=== PATIENT | female | born 1960 | race Caucasian/White ===

== ENCOUNTER 2017-01-06 18:01 | Emergency (ER) | payer MEDICAID ==
--- NOTE | 2017-01-06 18:07 | EDPHY ---
H & P Time Seen by Provider: 01/06/17 18:07 HPI/ROS: CHIEF COMPLAINT: Left leg laceration HISTORY OF PRESENT ILLNESS: Patient is wheelchair-bound with complex regional pain syndrome and cut her leg on her wheelchair earlier this evening. Laceration is on the left anterior phipps. No other injuries. 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 She has chronically anticoagulated on Xarelto but does not have bleeding actively now. REVIEW OF SYSTEMS: Eye: no change in vision ENT: no sore throat Cardiac: No syncope. Pulmonary: Chronic shortness of breath unchanged. Abdomen: No abdominal pain Musculoskeletal: Left leg pain which is worse today after the injury, chronic. Skin: Left leg laceration. Multiple skin tears on the right leg which are chronic and not worse today and not examined. Neuro: Currently wheelchair-bound. Chronically decreased strength in lower extremities. Constitutional: no fever : no urinary symptoms A comprehensive 10 point review of systems is otherwise negative aside from elements mentioned in the history of present illness. PAST MEDICAL HISTORY: Includes complex regional pain syndrome, chronic respiratory failure with hypoxia, sleep apnea, hypertension, pulmonary embolism , depression, extremity contractures, glaucoma, borderline personality disorder , right humerus fracture, opioid dependence. This is from the [facility] clinical information the comes with the patient. Social history: Lives at [facility] General Appearance: Alert and conversant, cooperative. Eyes: No scleral icterus. ENT, Mouth: Normal mucous membranes. Respiratory: Normal respiratory effort, breath sounds equal, lungs are clear to auscultation. Cardiovascular: Regular rate and rhythm. Gastrointestinal: Abdomen is soft and non tender. Neurological: Alert and oriented x3. Follows commands. Skin: Laceration 6 cm left anterior phipps. Right leg has dressing over skin tears, not examined. Musculoskeletal: Contractures both lower extremities. Psychiatric: Patient is very anxious and tearful. Emergency Department course/MDM: Patient was unable to tolerate local anesthesia so she was given 100 mg intranasal ketamine and then was able to tolerate 10 mL is of 0.5% bupivacaine injected locally into the wound. Constitutional: Initial Vital Signs Temperature (C) 36.7 C 01/06/17 18:35 Heart Rate 87 01/06/17 18:35 Respiratory Rate 20 01/06/17 18:35 Blood Pressure 200/99 H 01/06/17 18:35 O2 Sat (%) 100 01/06/17 18:35 O2 Delivery Mode Room Air Medical Decision Making - Diagnostics Imaging Results: Imaging Impressions Tibia/Fibula X-Ray 01/06/17 18:37 Impression: 1. No left tibial or fibular fracture identified. 2. Incomplete characterization of the ankle, which appears degenerative and disorganized. Imaging: I viewed and interpreted images myself Procedures: Procedure: Laceration repair. Verbal consent was obtained from the patient. The 6 cm laceration on the left phipps was anesthetized using 0.5% bupivacaine without epinephrine. The wound was irrigated with standard emergency department protocol, draped and explored. There were no deep structures involved. No tendon injury was identified. No foreign body found. The wound was repaired with 3 0 Vicryl and kyleigh. The wound repair was complex. Excellent hemostasis was obtained. Wound care instructions were discussed and the patient was warned regarding scarring. The procedure was performed by myself. - Data Points Medications Given: Discontinued Medications Ketamine HCl (Ketamine) 100 mg IVP EDNOW ONE Stop: 01/06/17 18:31 Last Admin: 01/06/17 18:34 Dose: 100 mg Departure - Departure Disposition: Home, Routine, Self-Care Clinical Impression: Leg laceration Condition: Good Instructions: Laceration (ED) Additional Instructions: Wound Care Follow-Up: Removal of sutures in 10-14 days. Suture removal is complimentary in uncomplicated cases. Infection or abnormal findings would require reevaluation by the MD. In that case, you may be billed. Referrals: Patient,NotPresent [Unknown] - As per Instructions EMIR GERMAIN [Primary Care Provider] - As per Instructions
[2017-01-06] MEDS ORDERED: KETAMINE 100 MG/10 ML SYR ONE (18:19)
[2017-01-06] MEDS ORDERED: KETAMINE 100 MG/10 ML SYR IVP ONE (18:30)
[2017-01-06 18:38] VITALS: TEMP 98.1; O2SAT 100
[2017-01-06 19:32] VITALS: BP 189/99; PULSE 89; RESP 18
== END 2017-01-06 19:49 | disposition home or self-care (01) ==
PROC: 0HQLXZZ Repair Left Lower Leg Skin, External Approach (ICD-10-PCS; principal; 2017-01-06)
DX: S81.812A Laceration without foreign body, left lower leg, initial encounter (principal); I10 Essential (primary) hypertension; W26.8XXA Contact with other sharp object(s), not elsewhere classified, initial encounter
CPT/HCPCS: 96374

== ENCOUNTER 2017-09-16 13:14 | Emergency (ER) | payer MEDICAID ==
[2017-09-16] MEDS ORDERED: ONDANSETRON DISINTEGRATING 4 MG TAB PO ONE (13:47)
--- NOTE | 2017-09-16 13:47 | EDPHY ---
H & P Stated Complaint: Bilateral Lower Rib Pain Time Seen by Provider: 09/16/17 13:47 HPI/ROS: HPI: This is a 56-year-old female who presents with Chief Complaint: Bilateral Lower Rib Pain Location: Bilateral lower rib Quality: Pain Duration: 1 hr prior to arrival Signs and Symptoms: No bleeding, no radiation, no numbness, no weakness, no tingling, no incontinence, no decreased range of motion, no swelling, no pain Timing: Severity: Context: Patient lives at an assisted living facility, supplement oxygen dependent due to chronic respiratory failure presents via EMS with complaints of bilateral lower rib pain. Patient reports that she was using her electric scooter to take her dog out to have a bowel movement. She leaned over to filler picker the stool and the seatbelt from her wheelchair dog into her lower ribs on both sides. She reports that she was stopped an of flexion position for few minutes and unable to sit up on her own. She had a call for help. She denies any shortness of breath above her baseline. She has tried no [id number] medication. She does report some upper respiratory symptoms for the last 3 days. Denies any fever/productive cough/neck stiffness. She did receive her influenza vaccine this year. Modifying Factors: None Comment: ROS: see HPI Constitutional: No fever, no chills, no weight loss Eyes: No blurred vision Respiratory: No shortness of breath, no cough Cardiovascular: No chest pain Gastrointestinal: No nausea, no vomiting no diarrhea Genitourinary: No dysuria Extremities: No myalgias Neurologic: No weakness, no numbness Skin: No rashes Hematologic: No bruising, no bleeding MEDICAL/SURGICAL/SOCIAL HISTORY: Medical/Surgical history: Complex Regional Pain Syndrome, Chronic Respiratory Failure, SAMIR, HTN, Obesity, PE, GERD, Depressive DO, Osteoarthritis, Contracture L ft, Glaucoma, Urinary Incontinence, Borderline Personality DO, Fx humerus, opioid dependence, dysphagia Social history: Lives in assisted living. Family history noncontributory CONSTITUTIONAL: Morbidly obese, nontoxic-appearing, polite and cooperative adult white female, awake and alert, no obvious distress HEENT: Atraumatic and normocephalic, PERRL, EOMI. no globe entrapment, no raccoon eyes. no [place] signs.Tympanic membranes clear. No tympanic membrane rupture. Nares patent; no septal hematoma. Oropharynx clear, no exudate and moist pink mucosa. No malocclusion. no dental trauma. Airway patent. No lymphadenopathy. NECK: supple, no midline tenderness, flexion 45 degrees, extension 45 degrees, right and left lateral flexion 45 degrees. No meningismus. Cardiovascular: Normal S1/S2, regular rate, regular rhythm, without murmur rub or gallop. PULMONARY/CHEST: Symmetrical and mild reproducible tenderness on bilateral lower ribs; no ecchymosis; no crepitus. Clear to auscultation bilaterally. Good air movement. No accessory muscle usage. ABDOMEN: Soft, nondistended, nontender, no ecchymosis, no rebound, no guarding , no peritoneal signs, no masses or organomegaly. No CVAT. PELVIC: no pain with rocking; bilateral hips flexion 125 degrees, extension 30 degrees, with no pain internal rotation and no pain external rotation. BACK: No midline tenderness, no paraspinous spasm, deep tendon reflexes 2/2, no pain with straight leg raise EXTREMITIES: 2/2 pulses, no deformities, no clubbing, no cyanosis or edema. NEUROLOGICAL: no focal neuro deficits. GCS 15. SKIN: Warm and dry, mild erythema consistent with candidiasis noted under by both breasts; no skin breakdown. no erythema. no rash. Good capillary refill. Source: Patient Exam Limitations: No limitations - Personal History Current Tetanus/Diphtheria Vaccine: Yes Current Tetanus Diphtheria and Acellular Pertussis (TDAP): Yes - Medical/Surgical History Hx Asthma: No Hx Chronic Respiratory Disease: No Hx Diabetes: No Hx Cardiac Disease: No Hx Renal Disease: No Hx Cirrhosis: No Hx Alcoholism: No Hx HIV/AIDS: No Hx Splenectomy or Spleen Trauma: No Other PMH: Complex Regional Pain Syndrome, Chronic Respiratory Failure, SAMIR, HTN , Obesity, PE, GERD, Depressive DO, Osteoarthritis, Contracture L ft, Glaucoma, Urinary Incontinence, Borderline Personality DO, Fx humerus, opioid dependence, dysphagia - Social History Smoking Status: Former smoker Constitutional: Initial Vital Signs Temperature (C) 36.6 C 09/16/17 13:34 Heart Rate 80 09/16/17 13:34 Respiratory Rate 18 09/16/17 13:34 Blood Pressure 115/78 09/16/17 13:34 O2 Sat (%) 99 09/16/17 13:34 O2 Delivery Mode Room Air Allergies/Adverse Reactions: ceftriaxone Allergy (Verified 09/16/17 13:57) enoxaparin Allergy (Verified 09/16/17 13:57) hydrocodone Allergy (Verified 09/16/17 13:57) latex Allergy (Verified 09/16/17 13:57) morphine Allergy (Verified 09/16/17 13:57) nalbuphine Allergy (Verified 09/16/17 13:57) nifedipine Allergy (Verified 09/16/17 13:57) oxycodone Allergy (Verified 09/16/17 13:57) pepper Allergy (Verified 09/16/17 13:57) peppermint Allergy (Verified 09/16/17 13:57) pineapple Allergy (Verified 09/16/17 13:57) vancomycin Allergy (Verified 09/16/17 13:57) Home Medications: Medication Instructions Recorded ACETAMINOPHEN 09/16/17 Advair 100/50 (*) 09/16/17 BIOTIN 09/16/17 Benzocaine 09/16/17 Bisacodyl 09/16/17 CHOLECALCIFEROL 09/16/17 Carboxymethylcellulose 0.5% 09/16/17 Cyclobenzaprine 09/16/17 Depakote 09/16/17 Ditropan 09/16/17 Docosanol [Abreva (*)] 09/16/17 Ferrous Sulfate 09/16/17 Gabapentin 09/16/17 Hydrocortisone 09/16/17 Hydroxyzine HCl 09/16/17 Hypromellose 09/16/17 IMODIUM A-D 09/16/17 Ipratropium/Albuterol 09/16/17 Ketoconazole 09/16/17 Latanoprost 09/16/17 Loteprednol Etabonate 09/16/17 Magnesium 09/16/17 Methadone HCl 09/16/17 Metoprolol Tartrate 09/16/17 Nystatin Powder 09/16/17 Olopatadine 0.1% 09/16/17 Paxil 09/16/17 Polyethylene Glycol 3350 09/16/17 Polyvinyl Alcohol 09/16/17 Ranitidine HCl 09/16/17 Rivaroxaban 09/16/17 SUMAtriptan 09/16/17 Sennosides 09/16/17 Tums 500MG (*) 09/16/17 ZYRTEC 09/16/17 Zofran 09/16/17 guaiFENesin 09/16/17 Medical Decision Making - Diagnostics Imaging Results: Imaging Impressions Ribs w/Chest X-Ray 09/16/17 14:00 Impression: 1. Multiple fractures associated with lateral left fourth through 10th ribs with probable callus formation. Clinical correlation recommended. If indicated, consider CT imaging at some point to evaluate for healing of the fractures into confirm chronic remote etiology. 2. Healed fractures lateral right fourth through sixth ribs. 3. Moderate to large hiatal hernia. 4. Moderate elevation right hemidiaphragm with adjacent compressive atelectatic change. ED Course/Re-evaluation: Chest x-ray, rib x-ray, oral medication, influenza test ordered Vital signs reviewed upon arrival and no hypoxia/wheezing/shortness of breath Given p. O. Flexeril 10 mg with adequate relief X-ray reviewed and shows multiple bilateral fractures with callus formation; with mechanism of injury doubt new rib fractures. Reassessed patient who reports that pain has substantially improved she has a history of old fractures in the past. Will discharge home under the premise of rib contusion and if symptoms persist greater than 7-10 days, return to the ER for reimaging. Patient reports that she has a Flexeril prescription already at home. No signs of neurovascular compromise/tenting of skin/compartment syndrome/ extremities and joints examined above and below area of concern and are neurovascularly intact. Influenza negative. Chest x-ray shows no signs of pneumonia, effusion. + hiatal hernia This patient was seen under the supervision of my secondary supervising physician. I evaluated care for this patient independently. Differential Diagnosis: Differential diagnosis includes but is not limited to rib contusion, rib fracture, intra-abdominal abnormality, influenza, viral syndrome, pneumonia. - Data Points Laboratory Results: 09/16/17 14:43 Nasal Influenza A PCR NEGATIVE FOR FLU A (NEGATIVE) Nasal Influenza B PCR NEGATIVE FOR FLU B (NEGATIVE) Medications Given: Discontinued Medications Cyclobenzaprine HCl (Flexeril) 10 mg PO EDNOW ONE Stop: 09/16/17 14:01 Last Admin: 09/16/17 14:43 Dose: 10 mg Ondansetron HCl (Zofran Odt) 4 mg PO EDNOW ONE Stop: 09/16/17 13:48 Last Admin: 09/16/17 13:50 Dose: 4 mg Departure - Departure Disposition: Home, Routine, Self-Care Clinical Impression: Hx of fracture of rib Rib contusion Qualifiers: Encounter type: initial encounter Laterality: unspecified laterality Qualified Code(s): S20.219A - Contusion of unspecified front wall of thorax, initial encounter Condition: Good Instructions: Rib Fracture (ED), Rib Contusion (ED) Additional Instructions: Take Tylenol 650 mg every 4 hours and/or Ibuprofen 600 mg every 8 hours with food as needed for pain. Use Flexeril every 8 hours as needed for muscle spasm. Apply ice for 30 minutes at a time; 2-3 times per day for the next 1-2 days. The x-rays obtained in the emergency department today demonstrate no evidence of an obvious fracture. Sometimes fractures are not obvious on the initial set of x-rays performed in the ED. For this reason, you should have repeat x-rays performed in 7-10 days if you are having any pain exclude the possibility of an occult fracture. Return to the ER immediately if you experience new or worsening pain, discoloration, numbness, tingling, or any other symptoms that concern you. Referrals: PCP Not In,Dictionary [Medical Doctor] - As per Instructions
[2017-09-16] MEDS ORDERED: CYCLOBENZAPRINE 10 MG TAB PO ONE (14:00)
[2017-09-16 17:26] VITALS: BP 103/86; PULSE 79; RESP 18; TEMP 97.9; O2SAT 99
== END 2017-09-16 17:31 | disposition home or self-care (01) ==
LOC: EDBD → EDUNIT#
DX: S20.219A Contusion of unspecified front wall of thorax, initial encounter (principal); I10 Essential (primary) hypertension; Z87.81 Personal history of (healed) traumatic fracture; Z87.891 Personal history of nicotine dependence; Z91.040 Latex allergy status; W05.0XXA Fall from non-moving wheelchair, initial encounter

== ENCOUNTER 2017-09-26 09:48 | Inpatient (IN) | payer MEDICAID ==
--- NOTE | 2017-09-26 10:04 | CPEKG ---
Heart Rate: 144 RR Interval: 417 P-R Interval: 132 QRSD Interval: 80 QT Interval: 276 QTC Interval: 427 P [place]: 35 QRS [place]: -26 T Wave [place]: 46 EKG Severity - OTHERWISE NORMAL ECG - EKG Impression: SINUS TACHYCARDIA EKG Impression: BORDERLINE LEFT AXIS DEVIATION Electronically Signed By: Joseph Hansen 26-Sep-2017 16:08:07
--- NOTE | 2017-09-26 10:20 | EDPHY ---
H & P Stated Complaint: AMS, pain, tachy HPI/ROS: Chief Complaint: Altered mental status, tachycardic, diaphoretic HPI: 56-year-old resident of [facility] is presenting having been found altered this morning. She is tachycardic and diaphoretic. Patient is awake and answering questions but she is confused. EMS noted that she had unequal pupils but she does have a history of glaucoma and eye surgery and she is telling me that that is normal for her. No other history is available at this time. Staff states that the last time that anyone documented see her normal was last night before bed. She normally is up and ambulatory and able to perform some activities of daily living. ROS: Unavailable secondary to patient's confusion PMH: Muscle weakness, PE, GERD, depression, glaucoma, borderline personality, opioid dependence, chronic respiratory failure, central hypertension, obstructive sleep apnea, obesity, complex pain syndrome Social History: Unknown Family History: non-contributory Physical Exam: Gen: Awake, Alert, confused, obese HEENT: Nose: no rhinorrhea Eyes: Left pupil is 7 mm and non circular, right is 3 mm, both are reactive Mouth: Very dry mucosa Neck: Supple, no JVD Chest: nontender, diminished lung zones diffusely, no focal rales or rhonchi Heart: Tachycardic Abd: Obese, Soft, non-tender, no guarding Ext: no edema, non-tender, bilateral lower leg erythema consistent with chronic skin changes in dependent edema Skin: Per leg exam Neuro: CN II-XII intact, Sensation grossly intact, Strength 5/5 in bilateral upper and lower extremities - Personal History Current Tetanus/Diphtheria Vaccine: Unsure Current Tetanus Diphtheria and Acellular Pertussis (TDAP): Unsure - Medical/Surgical History Hx Asthma: No Hx Chronic Respiratory Disease: No Hx Diabetes: No Hx Cardiac Disease: No Hx Renal Disease: No Hx Cirrhosis: No Hx Alcoholism: No Hx HIV/AIDS: No Hx Splenectomy or Spleen Trauma: No Other PMH: Complex Regional Pain Syndrome, Chronic Respiratory Failure, SAMIR, HTN , Obesity, PE, GERD, Depressive DO, Osteoarthritis, Contracture L ft, Glaucoma, Urinary Incontinence, Borderline Personality DO, Fx humerus, opioid dependence, dysphagia - Social History Smoking Status: Former smoker Constitutional: Initial Vital Signs Temperature (C) 37.8 C 09/26/17 09:53 Heart Rate 146 H 09/26/17 09:53 Respiratory Rate 32 H 09/26/17 09:53 O2 Sat (%) 80 L 09/26/17 09:53 O2 Delivery Mode Nasal Cannula O2 (L/minute) 4 Allergies/Adverse Reactions: ceftriaxone Allergy (Verified 09/16/17 13:57) enoxaparin Allergy (Verified 09/16/17 13:57) hydrocodone Allergy (Verified 09/16/17 13:57) latex Allergy (Verified 09/16/17 13:57) morphine Allergy (Verified 09/16/17 13:57) nalbuphine Allergy (Verified 09/16/17 13:57) nifedipine Allergy (Verified 09/16/17 13:57) oxycodone Allergy (Verified 09/16/17 13:57) pepper Allergy (Verified 09/16/17 13:57) peppermint Allergy (Verified 09/16/17 13:57) pineapple Allergy (Verified 09/16/17 13:57) vancomycin Allergy (Verified 09/16/17 13:57) Home Medications: Medication Instructions Recorded Acetaminophen [Tylenol ES 500 mg 1,000 mg PO TID 09/26/17 (*)] Benzocaine [Orajel (*)] 1 missy TP Q2H PRN 09/26/17 Bisacodyl [Bisacodyl (*)] 5 mg PO PRN PRN 09/26/17 Calcium Carbonate [Tums 500MG (*)] 1,000 mg PO Q8H PRN 09/26/17 Carboxymethylcellulose 0.5% 2 drops EACHEYE Q4H PRN 09/26/17 [Refresh Plus Drops 0.5%] Cetirizine [ZyrTEC 10 mg (*)] 10 mg PO DAILY 09/26/17 Cyclobenzaprine [Flexeril 10 MG 10 mg PO Q4H PRN 09/26/17 (*)] Docosanol [Abreva (*)] 1 missy TP PRN PRN 09/26/17 Doxycycline Hyclate [Vibramycin 100 mg PO BID 09/26/17 100 MG (*)] Ferrous Sulfate [Ferrous Sulf 325 325 mg PO DAILY 09/26/17 MG (*)] Fluconazole Shampoo 2% 1 missy TP MO 09/26/17 Fluticasone/Salmeter 250/50Mcg 1 puffs IH BID 09/26/17 [Advair 250/50 (*)] Gabapentin [Neurontin 400 MG (*)] 400 mg PO BID 09/26/17 Herbals/Supplements -Info Only 1 ea PO DAILY 09/26/17 Hydrocortisone 0.5% 1 missy TP Q12H PRN 09/26/17 [Hydrocortisone 0.5% cream (*)] Ipratropium/Albuterol [Duoneb (*)] 3 ml IH Q4H PRN 09/26/17 Latanoprost 0.005% [Xalatan 0.005% 1 drops EACHEYE HS 09/26/17 (*)] Loperamide HCl [Imodium 2 mg (*)] 2 mg PO Q6H PRN 09/26/17 Loteprednol Etabonate [Alrex] 1 drop LEFTEYE BID 09/26/17 Magnesium Hydroxide [Milk of 30 ml PO Q24H PRN 09/26/17 Magnesia] Methadone HCl [Methadone 5 mg (*)] 5 mg PO TID@08,16,20 09/26/17 Metoprolol Tartrate [Lopressor 50 50 mg PO BID 09/26/17 mg (*)] Nystatin Powder [Mycostatin Powder 1 missy TP Q8H PRN 09/26/17 (RX)] Olopatadine 0.1% [Patanol 0.1% 1 drops EACHEYE BID 09/26/17 Opht Drop (RX)] Ondansetron Odt [Zofran Odt 4 mg 4 mg PO Q6H PRN 09/26/17 (*)] Oxybutynin Chloride [Ditropan Xl] 10 mg PO DAILY 09/26/17 PARoxetine HCL [Paxil] 40 mg PO DAILY 09/26/17 Polyethylene Glycol 3350 [Miralax 17 gm PO DAILY 09/26/17 17 gm (*)] Ranitidine HCl [Zantac] 150 mg PO BID 09/26/17 Rivaroxaban [Xarelto] 20 mg PO DAILY 09/26/17 SUMAtriptan [Imitrex 25 MG (*)] 25 mg PO Q4H PRN 09/26/17 Sennosides 8.6 mg PO BID 09/26/17 guaiFENesin [Guaifenesin] 200 mg PO Q6H PRN 09/26/17 hydrOXYzine HCL [hydrOXYzine HCL 25 mg PO Q12H PRN 09/26/17 (RX)] lamoTRIgine [LamICTAL] 25 mg PO DAILY 09/26/17 Medical Decision Making - Diagnostics Imaging Results: Imaging Impressions Chest X-Ray 09/26/17 10:04 Impression: 1. Findings suggest congestive heart failure with possible pulmonary edema. 2. Bilateral opacities are seen possibly cardiogenic although superimposed pneumonia cannot be excluded. If the patient's condition allows PA and lateral chest radiography could be of value in further assessment. Head CT 09/26/17 10:21 Impression: Low-attenuation changes suggest small vessel disease. Negative for hemorrhage or mass lesion. Results called and discussed with Joseph Hansen MD on 09/26/2017 at 13:30 Chest X-Ray 09/26/17 11:13 Impression: Negative for pneumothorax following placement of right internal jugular catheter. Procedures: Procedure: Central line placement. Indication: Sepsis. Verbal informed consent was obtained, with the risks explained to include but not be limited to bleeding, infection, and collapsed lung. A timeout was observed and patients identity and correct procedure location confirmed. Full maximal sterile barrier technique was uses including cap, gown, sterile gloves, large sheet, hand washing and chlorhexidine prep. The area anesthetized with 1 % lidocaine. The right internal jugular was punctured with a 19 gauge finder needle, then a 7 Frisian triple-lumen catheter was placed using standard Seldinger technique. There were no complications. Blood return low pressure, dark blood. Patient tolerated procedure well. CXR results: Good placement. X -ray was interpreted by myself. The procedure was performed by myself. ED Course/Re-evaluation: Patient has meets SIRS criteria is likely septic. Will give IV fluid bolus. Reassess. Lactic acid is noted. Blood pressures dropped. Central line is been placed by me, see procedure note. IV fluids ordered. Patient is improving. CT scan of the head is pending. Currently no focal source of infection. Had ordered IV antibiotics, at imipenem due the patient's cephalosporin and multiple allergies. Patient to go to the ICU via CT scan. I have discussed with patient's family at length. Investigations continue be pending. Patient be admitted Dr. Mendiola. Critical Care Time: I spent a total of 50 minutes of critical care time in obtaining history, performing a physical exam, bedside monitoring of interventions, collecting and interpreting tests and discussion with consultants but not including time spent performing procedures. - Data Points Laboratory Results: Laboratory Results 09/26/17 10:24 09/26/17 10:24 09/26/17 09/26/17 09/26/17 10:24 10:24 10:24 WBC 4.38 10^3/uL 10^3/uL (3.80-9.50) RBC 4.95 10^6/uL 10^6/uL (4.18-5.33) Hgb 13.5 g/dL g/dL (12.6-16.3) Hct 41.9 % % (38.0-47.0) MCV 84.6 fL fL (81.5-99.8) MCH 27.3 pg L pg (27.9-34.1) MCHC 32.2 g/dL L g/dL (32.4-36.7) RDW 16.1 % H % (11.5-15.2) Plt Count 134 10^3/uL L 10^3/uL (150-400) MPV 11.4 fL fL (8.7-11.7) Neut % (Auto) 93.1 % H % (39.3-74.2) Lymph % (Auto) 1.6 % L % (15.0-45.0) Luna % (Auto) 3.2 % L % (4.5-13.0) Eos % (Auto) 0.0 % L % (0.6-7.6) Baso % (Auto) 1.4 % % (0.3-1.7) Nucleat RBC Rel Count 0.5 % H % (0.0-0.2) Absolute Neuts (auto) 4.08 10^3/uL 10^3/uL (1.70-6.50) Absolute Lymphs (auto) 0.07 10^3/uL L 10^3/uL (1.00-3.00) Absolute Monos (auto) 0.14 10^3/uL L 10^3/uL (0.30-0.80) Absolute Eos (auto) 0.00 10^3/uL L 10^3/uL (0.03-0.40) Absolute Basos (auto) 0.06 10^3/uL 10^3/uL (0.02-0.10) Absolute Nucleated RBC 0.02 10^3/uL H 10^3/uL (0-0.01) Immature Gran % 0.7 % % (0.0-1.1) Seg Neutrophils % 35 % % Band Neutrophils % 39 % % Lymphocytes % 4 % % Monocytes % 3 % % Eosinophils % 1 % % Metamyelocytes % 14 % % Myelocytes % 4 % % Immature Gran # 0.03 10^3/uL 10^3/uL (0.00-0.10) Absolute Seg Neuts 1.53 10^/uL L 10^/uL (1.70-6.50) Absolute Band Neuts 1.71 10^3/uL H 10^3/uL (0.00-0.70) Absolute Lymphocytes 0.18 10^3/uL L 10^3/uL (1.00-3.00) Absolute Monocytes 0.13 10^3/uL L 10^3/uL (0.30-0.80) Absolute Eosinophils 0.04 10^3/uL 10^3/uL (0.03-0.40) Absolute Metamyelocyte 0.61 10^3/mL H 10^3/mL (0.00-0.00) Absolute Myelocytes 0.18 10^3/mL H 10^3/mL (0.00-0.00) Dohle Bodies PRESENT H Platelet Estimate DECREASED L (ADEQ) Giant Platelets PRESENT H Hypochromasia 1+ H Oval Macrocytes 1+ H Smear Review By Pending PT REJ INR REJ APTT REJ VBG Lactic Acid 3.7 mmol/L H mmol/L (0.7-2.1) Sodium Potassium Chloride Carbon Dioxide Anion Gap BUN Creatinine Estimated GFR Glucose Calcium Total Bilirubin 09/26/17 10:24 WBC RBC Hgb Hct MCV MCH MCHC RDW Plt Count MPV Neut % (Auto) Lymph % (Auto) Luna % (Auto) Eos % (Auto) Baso % (Auto) Nucleat RBC Rel Count Absolute Neuts (auto) Absolute Lymphs (auto) Absolute Monos (auto) Absolute Eos (auto) Absolute Basos (auto) Absolute Nucleated RBC Immature Gran % Seg Neutrophils % Band Neutrophils % Lymphocytes % Monocytes % Eosinophils % Metamyelocytes % Myelocytes % Immature Gran # Absolute Seg Neuts Absolute Band Neuts Absolute Lymphocytes Absolute Monocytes Absolute Eosinophils Absolute Metamyelocyte Absolute Myelocytes Dohle Bodies Platelet Estimate Giant Platelets Hypochromasia Oval Macrocytes Smear Review By PT INR APTT VBG Lactic Acid Sodium REJ Potassium REJ Chloride REJ Carbon Dioxide REJ Anion Gap REJ BUN REJ Creatinine REJ Estimated GFR REJ Glucose REJ Calcium REJ Total Bilirubin REJ Microbiology Results: MICROBIOLOGY 09/26/17 10:32 Nasal, Sinus - Swab Respiratory Panel (PCR) - Final No Organism Detected Medications Given: Hydromorphone HCl (Dilaudid) 0.2 - 0.4 mg IVP Q2HRS PRN PRN Reason: Pain, Severe Unable to Take PO Stop: 10/06/17 14:14 Last Admin: 09/26/17 14:54 Dose: 0.4 mg Sodium Chloride (Ns) 4,100 mls @ 683.3333 mls/hr 30 ml/kg infuse over 6 hr ( 4100 ml) IV EDNOW ONE PRN Reason: Protocol Stop: 09/26/17 17:37 Last Admin: 09/26/17 11:30 Dose: 4,100 mls Sodium Chloride (Ns) 1,000 mls @ 100 mls/hr IV CONT SHERRY Stop: 03/25/18 13:59 Last Admin: 09/26/17 15:53 Dose: 1,000 mls Discontinued Medications Ertapenem (Invanz) 1 gm IVP EDNOW ONE PRN Reason: Protocol Stop: 09/26/17 11:39 Last Admin: 09/26/17 12:39 Dose: 1 gm Sodium Chloride (Ns) 4,100 mls @ 8,200 mls/hr 30 ml/kg infuse over 30 min ( 4100 ml) IV EDNOW ONE PRN Reason: Protocol Stop: 09/26/17 12:07 Last Admin: 09/26/17 12:39 Dose: 4,100 mls Departure - Departure Disposition: [facility] Inpatient Acute Clinical Impression: Sepsis Condition: Serious
[2017-09-26 10:42] LABS: PLATELET COUNT 134 10^3/uL (150-400)
[2017-09-26] MEDS ORDERED: NS IV ONE ×2 (11:38)
[2017-09-26] MEDS ORDERED: ERTAPENEM 1 GM VIAL IVP ONE (11:38)
[2017-09-26] MEDS ORDERED: ACETAMINOPHEN 650 MG SUPP PR ONE ×2 (12:49→12:50)
[2017-09-26] MEDS ORDERED: MEROPENEM 1 GM in STERILE WATER INJ 20 ML IV SCH (14:00)
[2017-09-26] MEDS ORDERED: ONDANSETRON 4 MG/2 ML VIAL IVP PRN (14:04)
[2017-09-26] MEDS ORDERED: PROMETHAZINE HCL 25 MG/ML INJ IVP PRN (14:04)
[2017-09-26] MEDS ORDERED: HYDROmorphONE/DILAUDID 1 MG/ML INJ IVP PRN (14:05)
[2017-09-26] MEDS: HYDROmorphONE/DILAUDID 2 MG/ML INJ IVP PRN (14:54)
[2017-09-26] MEDS: NS 1,000 ML IV SCH (15:53)
--- NOTE | 2017-09-26 15:53 | GHP ---
[f rep st] HISTORY AND PHYSICAL DATE OF ADMISSION: 09/26/2017 CHIEF COMPLAINT: Confusion. HISTORY: The patient is a 56-year-old female resident of [facility]. Her normal mental status wa s normal when she went to bed last night. This morning when she awoke, staff noted her to be very al tered. She was awake, but very confused, tachycardic, diaphoretic. No further history can be obtain ed at this time. She complains of pain, but she cannot really localize where it is. She is talking, but is nonsensical. PAST MEDICAL HISTORY: 1. Morbid obesity, BMI 44. 2. Pulmonary embolus. 3. Borderline personality disorder. 4. Obstructive sleep apnea. 5. Obesity hypoventilation syndrome with chronic respiratory failure. 6. Complex regional pain syndrome with continuous narcotic dependency. 7. Dysphagia. MEDICATIONS: Please see computer record for full detailed list. ALLERGIES: To ceftriaxone, vancomycin, enoxaparin, hydrocodone, morphine, latex, nifedipine. SOCIAL HISTORY: She is a permanent resident at [facility]. Smoking and alcohol history are unkno wn, but presumably none current. REVIEW OF SYSTEMS: Complete review of systems is unobtainable due to patient's very altered mental s tatus. FAMILY HISTORY: Unobtainable due the patient's altered mental status. PHYSICAL EXAMINATION: GENERAL: This is an obese female in respiratory distress, confused, mildly ag itated. VITAL SIGNS: Temperature is 39.2, pulse is 146, respirations are 48, blood pressure is 90/6 5, saturating 80% on room air and 97% on 6 L. EYES: Normal conjunctivae. Pupils equal, round, reac t to light. ENT: Normal ears and nose. Hearing intact. Normal teeth. Oropharynx dry. NECK: Tra tal midline. No thyromegaly. CHEST: Increased respiratory effort. No wheezing. Bilateral rales without rhonchi. CARDIOVASCULAR: Tachycardic. No murmur. No lower extremity edema. ABDOMEN: Sof t, nontender. No hepatosplenomegaly. Obese. SKIN: Lower extremities have bilateral lower extremit y ulcerations. On the left, there is erythema extending up toward the groin, consistent with lymphan gitic spread. MUSCULOSKELETAL: No cyanosis or clubbing. Weakness in the lower extremities with con tractures. NEUROLOGIC: Cranial nerves intact. Difficult to assess sensation due to patient's lack of cooperation. PSYCHIATRIC: She is confused, conversant, but making nonsensical statements. Poor memory. Poor judgment and insight. Mildly agitated. LABORATORY DATA: White count 4.38, hematocrit 41.9, platelets 134. Sodium 136, potassium 4.4, chlor yo 103, bicarb 18, BUN 60, creatinine 1.7, glucose 93. AST 111, ALT 75. BNP is 18,300. Lactate 3. 7. Troponins negative. EKG: Reviewed by me. My personal interpretation is sinus tachycardia. No ST or T-wave changes. Chest x-ray shows bilateral infiltrates, consistent with bilateral pneumonia versus CHF. Head CT is negative. ASSESSMENT AND PLAN: 1. Severe sepsis. She is critically ill at this time. I will admit her to intensive care unit. Maria valdes is high risk to progress into septic shock and/or needing intubation. Central line was placed in [facility] emergency room. She received appropriate sepsis intravenous fluid bolus and will continue to foll ow lactates. Source of infection is either aspiration pneumonia versus lower extremity wounds with c ellulitis. Blood cultures are pending. Given her chronic senior care status, I do think we need to cover for senior care-acquired infection including methicillin-resistant Staphylococcus aureus and Pseudomonas. We will start her on intravenous meropenem and intravenous linezolid as she does have a vancomycin allergy. I have spoken with Dr. Zamora. Infectious Disease will see her in consultation and may alter those antibiotics as they see fit. We will hold Paxil while she is possibly on linezo lid. 2. Acute respiratory failure. Current respiratory rate is 48 with a very poor-appearing chest x-ray with bilateral infiltrates, which may be pneumonia versus congestive heart failure. Her BNP is very elevated; however, she is on a sepsis protocol. She has received intravenous fluid bolus. If her c ondition worsens, could consider discontinuing intravenous fluids and trying a dose of intravenous La six. Echocardiogram is ordered and pending. Dr. Rodriguez has seen her in consultation. 3. Metabolic encephalopathy secondary to infection. Her head CT is negative. 4. Morbid obesity. Body mass index is 51. She is also very immobile and a senior care resident. This puts her at high risk. 5. Lower extremity wounds with lymphangitic spread toward the groin. I do think she has a celluliti s, although whether or not this is the sole source of her severe sepsis is unclear. We will consult Wound Care. 6. Acute renal failure secondary to sepsis. Hopefully, this will improve. We will follow. 7. Dysphagia. According to [facility] records, she has known history of aspiration. This puts h er at high risk of aspiration pneumonia being the source of recurrent sepsis. We will keep her nothi ng by mouth until swallow evaluation. 8. Pulmonary embolus. She is chronically on Xarelto, but she is currently nothing by mouth. If she is cleared to start orals, could restart her Xarelto. Otherwise, could start an alternative agent s uch as subcutaneous Lovenox. 9. Complex regional pain syndrome. On chronic narcotics in the form of methadone. Will need to jeremy ch for QT prolongation. CODE STATUS: Full. ADMISSION STATUS: 1. Will admit to inpatient. She is critically ill. Anticipate greater than 2 midnights required fo r stabilization. 2. Critical care time spent is 1 hour. 3. DVT prophylaxis. If she is able to resume p.o., would restart Xarelto. Otherwise, an alternativ e subcu agent should be considered. /[id number]/MODL
[2017-09-26] MEDS: ACETAMINOPHEN 650 MG SUPP PR PRN ×2 (15:55→21:06)
--- NOTE | 2017-09-26 16:12 | PDMN ---
Medical Necessity Medical necessity: C/M review: est. > 2 MN LOS for eval and TX of acute and persistent - severe sepsis - source if infection is either aspiration pneumonia versus lower extremity wounds with cellulitis, respiratory failure, metabolic encephalopathy secondary to infection, acute renal failure secondary to sepsis, lower extremity wounds with lymphatic spread toward the groin present on admit - possible cellulitis, patient is at high risk to progress into septic shock and / or needing intubation, requiring central line placement in ED, Rigging Slinger consult done, planned ID consult, planned Wound Care consult, echocardiogram, ongoing multiple IV antibiotics, IV fluids, NPO, CVP monitoring , acute inpt PT/OT/ST, pulse oximetry, supplemental O2 in ICU, comorbid morbid obesity, dysphagia, history of PE, complex regional pain syndrome with continuous narcotic dependency, borderline personality disorder, obstructive sleep apnea, obesity hypoventilation syndrome with chronic respiratory failure per H/P.
--- NOTE | 2017-09-26 16:47 | PCMIDPN ---
Assessment/Plan: Assessment: Full consult dictated. This is an addendum. Linezolid discontinued and daptomycin offered in its stead. Review of med list shows the patient is on Paxil as well as Lamictal. These can both be pro serotonin agents in the patient could be experiencing serotonin syndrome for an explanation of her symptoms. In that case linezolid would be a problem due to its pro serotonin effect. Patient also does not have any respiratory symptoms other than hypoxia which is probably explained by resultant CHF see increased BNP. 09/26/17 16:44 Objective: Vital Signs Temp Pulse Resp BP Pulse Ox 39.1 C H 140 H 34 H 125/85 H 92 09/26/17 16:00 09/26/17 16:00 09/26/17 16:00 09/26/17 16:00 09/26/17 16:00 Laboratory Results 09/26/17 12:35 09/25/17 09/26/17 09/27/17 05:59 05:59 05:59 Intake Total 2000 Output Total 50 Balance 1950 ICD10 Worksheet Patient Problems: Problems Problem Status Onset Sepsis Acute
--- NOTE | 2017-09-26 16:59 | GCON ---
[f rep st] CONSULTATION INPATIENT INFECTIOUS DISEASE CONSULTATION. DATE OF CONSULTATION: 09/26/2017 REFERRING PHYSICIAN: Sandy Mendiola MD REASON FOR CONSULTATION: Sepsis. HISTORY OF PRESENT ILLNESS: Patient is a 56-year-old female, who is a resident at [facility], who was brought into the emergency room mid morning with mental status changes, tachycardia, and diaphor esis. Patient was able to communicate but was not always making sense. Patient was evaluated in the emergency room. She was febrile to 39.6. She was noted to have chronic wounds on both lower extrem ities. Possible erythematous streaking up the left lower extremity as well. Blood cultures are pend ing. PAST MEDICAL HISTORY: 1. Gastroesophageal reflux disease. 2. Depression. 3. Pulmonary embolus. 4. Glaucoma. 5. Borderline personality disorder. 6. Chronic respiratory failure. 7. Central hypertension. 8. Obstructive sleep apnea. 9. Obesity. 10. Complex pain syndrome. PAST SURGICAL HISTORY: None noted. MEDICATIONS: Antibiotics: 1. Linezolid. 2. Meropenem. ALLERGIES: Ceftriaxone, vancomycin. SOCIAL HISTORY: Patient is a resident at [facility]. Unable to obtain tobacco, alcohol, or drug use history. FAMILY HISTORY: Noncontributory. REVIEW OF SYSTEMS: Unable to obtain secondary to patient's confusion. PHYSICAL EXAMINATION: VITAL SIGNS: Temperature, maximum, is 39.5. Temperature, current, is 38.8. Heart rate is 144, respiratory rate is 28, blood pressure is 125/99. GENERAL: Patient is a well-for med, obese middle-aged female in mild distress. She is toxic in appearance. She is alert with quest ionable orientation. She is pleasant in her demeanor. HEENT: Normocephalic for age. Atraumatic. No scleral icterus. No oral lesion or drainage from the nares. Eyelids and conjunctivae are within normal limits. Pupils are equal and round bilaterally. NECK: Full, supple. No meningismus. LUNGS : Decreased breath sounds in the bases. Tachypneic. Adequate effort. HEART: Tachycardic but regu lar. ABDOMEN: Obese, soft. Some mild tenderness with deep palpation left upper quadrant. No rebou nd. No masses. SKIN: Warm and dry to the touch. No diffuse rash. Patient has chronic ulcers on b ilateral lower extremities with faint erythematous streaking up the left lower extremity on the midli ne. MUSCULOSKELETAL: No other muscle belly tenderness is noted. No joint line effusion or arthriti s is seen. NEURO: Cranial nerves 2-12 seem to be intact. Peripheral sensation seems intact in extr emities. LABORATORY DATA: Patient has a CBC, dated 09/26/2017, showing a white blood cell count of 4.3, hemog lobin of 13.5, hematocrit of 41.9, and platelet count of 134. Differential is left shifted with 93% segmented neutrophils. Serum chemistries on 09/26/2017 show sodium of 136, potassium of 4.4, chlorid e of 103, bicarbonate of 18, BUN of 60, and creatinine of 1.7. AST is 111, ALT is 75. BNP is 18,300 . Urinalysis on 09/26/2017 shows 5-10 white cells per high-powered field. MICROBIOLOGIC DATA: Patient has 2 sets of blood cultures, dated 09/26/2017, which are pending. Urin e culture, dated 09/26/2017, is also pending. Respiratory PCR panel, no organism detected. RADIOLOGIC DATA: Patient has a head CT, dated 09/26/2017, which shows no acute changes. Chest x-ray , dated 09/26/2017, shows findings suggestive of congestive heart failure and possible pulmonary ariel a. Also shows bilateral opacities, possibly cardiogenic, although pneumonia cannot be excluded. ASSESSMENT: Sepsis. Patient responded significantly to volume resuscitation. She is continually fe brile. Antibiotic choices cover methicillin-resistant Staphylococcus aureus, as well as broad gram-n egative and anaerobe coverage. Plan to continue both the linezolid and meropenem for now. Will foll ow up on blood cultures, as well as clinical progress. PLAN: 1. Continue meropenem 1 g IV q.8 hours. 2. Continue linezolid 600 mg IV q.12 hours. 3. Follow clinical course. /[id number]/MODL
[2017-09-26 17:46] LABS: INR 1.91 (0.83-1.16)
[2017-09-26] MEDS: DAPTOmycin 500 MG in NS 100 ML IV SCH (20:31)
[2017-09-26] MEDS ORDERED: LINEZOLID 600 MG/DEXTROSE 300 ML IV SCH (21:00)
[2017-09-26] MEDS: MEROPENEM 1 GM in STERILE WATER INJ 20 ML IV SCH (21:09)
[2017-09-26] MEDS: FAMOTIDINE 20 MG/NACL 50 ML IV SCH (21:09)
[2017-09-26] MEDS ORDERED: VASOPRESSIN/DEXTROSE 250 ML IV PRN (23:43)
[2017-09-26] MEDS ORDERED: NOREPINEPHRINE/NS 500 ML IV SCH (23:45)
[2017-09-27] MEDS: NOREPINEPHRINE BITARTRATE 4 MG in D5W 500 ML IV SCH ×4 (00:10→19:54)
[2017-09-27] MEDS: NS 1,000 ML IV SCH ×2 (00:48→07:14)
[2017-09-27] MEDS ORDERED: NS 1,000 ML IV ONE (04:44)
[2017-09-27] MEDS: MEROPENEM 1 GM in STERILE WATER INJ 20 ML IV SCH ×2 (05:31→15:22)
[2017-09-27 05:53] LABS: PLATELET COUNT 98 10^3/uL (150-400)
[2017-09-27] MEDS: HYDROmorphONE/DILAUDID 2 MG/ML INJ IVP PRN (07:12)
[2017-09-27] MEDS ORDERED: D50W 25 GM/50 ML SYR IVP ONE (08:07)
[2017-09-27] MEDS ORDERED: D50W 25 GM/50 ML SYR IVP PRN ×2 (08:18→20:02)
[2017-09-27] MEDS ORDERED: ALBUMIN 5% 500 ML IV ONE (09:34)
[2017-09-27] MEDS ORDERED: ALBUMIN 5% 500 ML BOTTLE IV ONE (09:38)
[2017-09-27] MEDS: METOPROLOL TARTRATE 5 MG/5 ML INJ IVP SCH ×3 (09:46→17:17)
[2017-09-27] MEDS: FAMOTIDINE 20 MG/NACL 50 ML IV SCH ×2 (09:58→20:07)
[2017-09-27] MEDS: DAPTOmycin 500 MG in NS 100 ML IV SCH (09:58)
--- NOTE | 2017-09-27 10:05 | WOCRNPDOC ---
[place] Advanced Assessment Note - Skin Integrity Problem, Advanced Assess Left Lower Leg Venous Stasis Ulcer Dressing Type: Allevyn Life Dressing Description: Clean/Dry, Intact Exudate Amount: Moderate Exudate Color: Reddish/Yellow Exudate Characteristic(s): Serosanguinous Integumentary Issue Intervention: Visualized Under Dressing Va Wound Tissue: Erythema, Hot, Scaly, Hemosiderin Staining, Venous Dermatitis , Thin, Xerotic, Scarred, Hypertrophic, Painful/Tender Va Wound Swelling: None Wound Bed Color: Red, Yellow Wound Bed Constitution: Granulation Tissue (30%), Red/[place] - Non Granular Tissue (40%), Adhered Slough (30%) Wound Edges: Epithelizing, Attached Site Measurement - Head-to-Toe Length X Width X Depth (cm): 4.4x2.3x0.2 Skin Integrity Problem Comment: LEVD bilaterally with evidence of multiple previously open then healed ulcers. Currently with one large ulcer on anterior lower leg. Significant va wound erythema. Wound bed mostly healthy. Will initiate antimicrobial wound gel and will alter secondary dressing slightly. Wound care will follow and round at end of week. Jacqui GARNETT and [employer] staff mine warfare officer in room for assessment. Right Lower Leg Venous Stasis Ulcer Dressing Type: Allevyn Life Dressing Description: Clean/Dry, Intact Exudate Amount: Moderate Exudate Color: Reddish/Yellow Exudate Characteristic(s): Serosanguinous Integumentary Issue Intervention: Visualized Under Dressing Va Wound Tissue: Scaly, Hemosiderin Staining, Venous Dermatitis, Scarred, Painful/Tender Va Wound Swelling: None Wound Bed Constitution: Granulation Tissue Wound Edges: Attached Site Measurement - Head-to-Toe Length X Width X Depth (cm): 3.9x3.1x0.1 Skin Integrity Problem Comment: LEVD bilaterally with evidence of multiple previously open then healed ulcers. Currently with one ulcer on anterior lower leg. Wound bed healthy. Will initiate antimicrobial wound gel and will alter secondary dressing slightly. Wound care will follow and round at end of week. Jacqui GARNETT and [employer] staff mine warfare officer in room for assessment.
[2017-09-27] MEDS: ACETAMINOPHEN 650 MG SUPP PR PRN ×2 (10:38→20:06)
--- NOTE | 2017-09-27 10:42 | GCON ---
[f rep st] CONSULTATION PULMONARY/CRITICAL CARE CONSULTATION REFERRING PHYSICIAN: Sandy Mendiola MD REASON FOR REFERRAL: Evaluation and management of hypotension, tachycardia, and sepsis. HISTORY: The patient is a 56-year-old woman who is a resident of [facility]. She was brought to [facility] emergency department today with acute onset of mental status changes, tachycardia, and diaphoresis , as well as confusion. She apparently had been in her normal mental status yesterday. The patient is reporting pain, but is unable to localize. In the emergency department, she was started on a seps is protocol and was given 3-4 L of fluid. This improved her blood pressure. A Beltran catheter was pl aced and she has had a moderate amount of urine output. She has remained tachycardic, and had a feve r as high as 39.5 in the emergency department. PAST MEDICAL HISTORY: 1. Morbid obesity. 2. Pulmonary embolism. 3. Borderline personality disorder. 4. Obstructive sleep apnea. 5. Hypertension. 6. Complex pain syndrome. 7. Gastroesophageal reflux. MEDICATIONS: At the time of admission included iron sulfate, Ditropan, Zofran, Lamictal, hydroxyzine , guaifenesin, Imitrex, Xarelto, Zantac, Ambien, MiraLAX, Paxil, Lopressor, methadone, gabapentin, Ad vair 250, doxycycline, Zyrtec. ALLERGIES: CEFTRIAXONE, ENOXAPARIN, HYDROCODONE, LATEX, MORPHINE, and VANCOMYCIN. SOCIAL HISTORY: The patient is a resident at [facility]. She apparently does not smoke. FAMILY HISTORY: Unremarkable. REVIEW OF SYSTEMS: Unobtainable. PHYSICAL EXAMINATION: GENERAL: The patient is awake and in mild distress with tachypnea and diaphor esis and some agitation. VITAL SIGNS: Her blood pressure is 125/99 with a heart rate of 144, oxygen saturations are 96% on 6 L of supplemental oxygen. Her temperature is 38.8. HEENT: Normocephalic a nd atraumatic. No icterus. NECK: No JVD. Trachea is midline. CHEST: She has some rales in the b ases. CARDIAC: Regular tachycardia without murmur. ABDOMEN: Soft and nontender. Bowel sounds are present. EXTREMITIES: No clubbing, cyanosis, or edema. SKIN: The patient has lesions on both álvaro ns that are about 5 cm in size of sloughed/denuded skin with surrounding erythema and some purulent s erous fluid. No fluctuance. NEURO: The patient is awake and alert, but delirious. Oriented times just 1. She is moving both upper extremities, but has minimal movement of her lower extremities. LABORATORY DATA: A chemistry group is remarkable for an anion gap of 13 with a carbon dioxide level of 17. Her BUN is 55 with a creatinine of 1.4. An albumin is 2.0 and AST is 180. Glucose is 47. He moglobin is 13.5 with a white blood count of 4.4 and 39% bands. A platelet count is 134. An INR is 1.9. An arterial blood lactate is 3.6. A urinalysis shows 5-10 white blood cells and 50-180 red blo od cells. A chest x-ray shows diffuse alveolar/interstitial infiltrates suggesting pulmonary edema. Images are reviewed by me. Blood cultures are pending. ASSESSMENT: 1. Sepsis. The patient presented with tachycardia, hypotension, an elevated lactate, and bandemia w ith fever. Most likely source is the wounds on her shins. Her pneumonia is also a possibility, but less likely. She has been empirically started on meropenem. Vancomycin is contraindicated, due to a llergies so she will be started on linezolid until cultures are back. 2. Acute hypoxemic respiratory failure. This is likely due to pulmonary edema/acute respiratory dis tress syndrome. Her CVP is currently 8 and she has reasonable urine output, so I think that further f luids may not be beneficial and could worsen pulmonary edema. Her oxygen saturations are adequate wi th supplemental oxygen, but she is somewhat tachypneic. She is at risk for worsening respiratory brady lure and the need for intubation/mechanical ventilation. 3. Tachycardia. The patient is quite tachycardic and likely is a result of sepsis. This is not par ticularly responded to fluids. She is also on beta blockers and may need to have these resumed in or rajinder to reduce her heart rate, although that would also put her at risk for hypotension. 4. Metabolic encephalopathy/delirium. This is likely due to infection. A head CT scan was negative . 5. Hypoglycemia. The patient has mild hypoglycemia, likely resolved related to the patient's sepsis . 6. Renal insufficiency. The patient's creatinine is elevated, likely due to the patient's sepsis an d hypotension. She has received 4 L of fluid and hopefully, this will help overt further decline in renal function. RECOMMENDATIONS: 1. Continue empiric antibiotics. 2. Follow blood sugars. 3. If blood pressure allows, may try beta blockers and/or resuming narcotics to help with the tachyc ardia. 4. Echocardiogram to evaluate cardiac function. /[id number]/MODL
[2017-09-27] MEDS ORDERED: ENOXAPARIN 100 MG/ML SYR SC SCH (11:15)
[2017-09-27] MEDS ORDERED: HEPARIN 10,000 UNIT/10 ML MDV (1,000 UNIT/ML) IVP ONE (11:37)
[2017-09-27] MEDS ORDERED: HEPARIN 10,000 UNIT/10 ML MDV (1,000 UNIT/ML) IVP PRN (11:37)
[2017-09-27] MEDS ORDERED: SODIUM BICARBONATE 50 MEQ/50 ML SYR IVP ONE (11:43)
[2017-09-27] MEDS ORDERED: NS 500 ML IV ONE (11:45)
--- NOTE | 2017-09-27 11:45 | PDINTPN ---
Plant Guide Progress Note Assessment/Plan: Assessment: Sepsis: Group A Strep in blood. Likely due to phipps wounds/cellulitis. On Meropenem/daptomycin. May be able to narrow coverage. Lactate still elevated. Tachycardia: Sinus. Not improved as I would expect with fluid resuscitation. ? Narcotic/b-reji withdrawal, but minimal improvement with IV Lopressor. Metabolic acidosis: NAG. Renal insufficiency likely contributes, as does lactate , although this would be measured in anion gap. Hypoglycemia could contribute. Also has a relative respiratory acidosis. Hypoglycemia: ? due to hepatic dysfunction. Plan: Change NS to D5NS, follow BSs closely. Give NaHCO3, repeat ABG. Check LFTs. Continue antibiotics. May still need intubation. Later: Worsening acidemia, respirations more agonal. Remains tachycardic. Will proceed with intubation. 40 minutes CC time exclusive of procedures, assessing worsening acidosis, respiratory failure, hypotension. 09/27/17 11:57 09/27/17 14:44 Subjective: Minimally responsive, mumbles but mostly incoherent. Objective: Vital Signs Temp Pulse Resp BP Pulse Ox 39.2 C H 151 H 24 H 95/70 L 96 09/27/17 10:54 09/27/17 11:00 09/27/17 11:00 09/27/17 11:00 09/27/17 11:00 Laboratory Results 09/27/17 05:35 09/27/17 08:10 09/26/17 09/27/17 09/28/17 05:59 05:59 05:59 Intake Total 6422.2 Output Total 850 150 Balance 5572.2 -150 PT 22.0 SEC (12.0-15.0) H 09/26/17 17:03 INR 1.91 (0.83-1.16) H 09/26/17 17:03 Laboratory Tests 09/27/17 11:08 pCO2 44 H pO2 111 H Total CO2 18 L ABG pH 7.21 L ABG HCO3 17 L ABG Lactic Acid 2.3 H CXR: Persistent pulmonary edema. Images reviewed by me. Microbiology 09/26/17 10:24 Blood Blood Panel (PCR) - Final Strep Pyogenes Group A 09/26/17 10:24 Blood Blood Culture - Preliminary 09/26/17 10:24 Blood Gram Positive Cocci Chains Physical Exam - Physical Exam General Appearance: No alert EENT: normal ENT inspection Neck: normal inspection Respiratory: decreased breath sounds (bases), crackles, No lungs clear Cardiac/Chest: tachycardia, No edema Abdomen: normal bowel sounds, non-tender, soft Skin: other (dressed skin breakdown both shins wiht surrounding erythema.) Extremities: normal inspection Neuro/Psych: motor weakness (LEs), No alert, No normal mood/affect, No oriented x 3 ICD10 Worksheet Patient Problems: Problems Problem Status Onset Sepsis Acute
[2017-09-27] MEDS: VASOPRESSIN 25 UNIT in D5W 250 ML IV PRN ×2 (11:50→21:38)
[2017-09-27] MEDS: D5W NS 1,000 ML IV SCH ×2 (12:15→21:38)
[2017-09-27] MEDS: HEPARIN/DEXTROSE 500 ML IV SCH (12:22)
[2017-09-27 12:47] LABS: INR 1.32 (0.83-1.16); PROTIME(PATIENT) 16.6 SEC (12.0-15.0)
[2017-09-27] MEDS ORDERED: LIDOCAINE 2% JELLY 5 ML TUBE TP ONE (13:47)
[2017-09-27] MEDS ORDERED: LIDOCAINE 1% 300 MG/30 ML SDV MISC ONE (13:47)
[2017-09-27] MEDS ORDERED: PROPOFOL/EMULSION 1,000 MG/100 ML BOTTLE IV ONE (13:57)
[2017-09-27] MEDS ORDERED: fentanYL/NACL/100 ML BAG IV ONE (13:58)
--- NOTE | 2017-09-27 14:26 | HOSPPROG ---
Hospitalist Progress Note Assessment/Plan: # septic shock-tachycardia fever leukocytosis and hypotension-presumed source secondary to strep bacteremia Patient remains hypotensive through the course of the morning requiring addition of a 2nd pressor - status post IV albumin - status post aggressive IV fluid resuscitation - continue IV pressor support - anticipating mechanical ventilation this afternoon - continue empiric IV antibiotics # Streptococcus bacteremia- suspect possible skin vs pulmonary source - continue daptomycin and meropenem per Infectious Disease # tachycardia- telemetry(personally reviewed and interpreted) sinus tachycardia 140s to 150s Suspect secondary to sepsis- lower suspicion for acute pulmonary embolism as patient has been on outpatient full-dose anticoagulation - continue aggressive fluid resuscitation and supportive care - starting heparin drip this patient unable to tolerate p.o. Anticoagulants # severe hypoglycemia- blood glucose less than 40 this a.m.- suspect secondary to sepsis - continue dextrose replacement as needed - monitor closely # metabolic acidosis- ABG with pH 7.1- anticipate mechanical ventilation this afternoon - continue supportive care - starting IV bicarbonate infusion # chronic narcotic dependency- patient using methadone as outpatient- may need T consider using fentanyl or other narcotic for sedation post intubation # history of pulmonary embolism on outpatient Xarelto # prophylaxis- starting heparin drip # diet NPO # disposition> 2MN as remains critically ill requiring high level critical care support I have discussed the case with Dr. Rodriguez- plan for intubation this afternoon Subjective: Remains tachycardic Objective: Vital Signs Temp Pulse Resp BP Pulse Ox 38.5 C H 151 H 29 H 110/83 H 92 09/27/17 13:49 09/27/17 13:49 09/27/17 13:49 09/27/17 13:49 09/27/17 13:49 Laboratory Results 09/27/17 05:35 09/27/17 12:30 09/26/17 09/27/17 09/28/17 05:59 05:59 05:59 Intake Total 6422.2 Output Total 850 160 Balance 5572.2 -160 PT 16.6 SEC (12.0-15.0) H 09/27/17 12:30 INR 1.32 (0.83-1.16) H 09/27/17 12:30 - Physical Exam Constitutional: obese Eyes: anicteric sclera Ears, Nose, Mouth, Throat: moist mucous membranes Cardiovascular: regular rate and rhythym Respiratory: rhonchi Gastrointestinal: normoactive bowel sounds Genitourinary: no bladder fullness Skin: warm Musculoskeletal: No asymmetric calves Neurologic: No AAOx3 Psychiatric: No agitated Lymph, Heme, Immunologic: no cervical LAD ICD10 Worksheet Patient Problems: Problems Problem Status Onset Sepsis Acute
[2017-09-27] MEDS: PROPOFOL/EMULSION 100 ML IV SCH (14:45)
[2017-09-27] MEDS: fentaNYL/NACL 100 ML IV SCH (14:45)
[2017-09-27] MEDS ORDERED: MIDAZOLAM 2 MG/2 ML VIAL IVP ONE (15:00)
[2017-09-27] MEDS ORDERED: fentaNYL 100 MCG/2 ML INJ IVP ONE (15:00)
--- NOTE | 2017-09-27 15:39 | GPN ---
[f rep st] PROCEDURE NOTE DATE OF PROCEDURE: 09/27/2017 PROCEDURE: Flexible fiberoptic bronchoscopy. INDICATION FOR THE PROCEDURE: Respiratory failure with possible retained secretions, need for intuba tion and mechanical ventilation. PROCEDURE NOTE: The risks and benefits of the procedure could not be explained to the patient as she is delirious and no family is available. Implied consent was used. It was my assessment that there was no risk of airborne infection from the procedure. After an appropriate time-out, 2 cc of 1% lid ocaine was sprayed into the patient's posterior pharynx. The bronchoscope was advanced through a bit e block. In the posterior pharynx, there were some thick purulent secretions which were suctioned. The bronchoscope was advanced through the vocal cords into the main trachea. An endotracheal tube wa s advanced over the bronchoscope. The bronchoscope was removed. The patient was bagged but there wa s significant air leak. I reintroduced the bronchoscope into the endotracheal tube and was unable to clearly visualize the airways due to secretions. Because of possible esophageal intubation, the bro nchoscope was removed, a new endotracheal tube was placed over the bronchoscope, and the bronchoscope was reintroduced through the vocal cords into the trachea, where the endotracheal tube was advanced over the bronchoscope. The bronchoscope was removed and the patient was bagged. Saturations through out never fell below the upper 80s. The bronchoscope was reintroduced into the endotracheal tube and I suctioned a moderate amount of thin mucopurulent secretions. All airways were clear of significan t secretions by the end of the procedure and the appropriate position of the endotracheal tube 2 cm a acosta the south was confirmed. The bronchoscope was then removed. A nasogastric tube was then place d. Shortly after this, the minute ventilation on the ventilator dropped significantly and an air michael k could be heard. I advanced the bronchoscope through the endotracheal tube and confirmed that the n asogastric tube was in the right mainstem. The nasogastric tube was then removed and the minute vent ilation on the ventilator improved. The patient's saturations never fell during this time. No speci mens were sent. There was no blood loss. 1 mg of Versed and 100 mcg of fentanyl were used intraveno usly for analgesia and sedation, as well as 2 cc of propofol. /[id number]/MODL
[2017-09-27] MEDS: CLINDAMYCIN 600 MG/DEXTROSE 50 ML IV SCH ×2 (15:45→23:27)
[2017-09-27] MEDS: HYDROCORTISONE 100 MG/2 ML VIAL IVP SCH ×2 (15:45→20:07)
[2017-09-27] MEDS: ERTAPENEM 1 GM VIAL IV SCH (15:53)
[2017-09-27] MEDS: NS IV SCH (16:23)
[2017-09-27] MEDS: THIAMINE HCL IV SCH (16:23)
[2017-09-27] MEDS: ASCORBIC ACID 1,500 MG in D5W 100 ML IV SCH ×2 (16:23→20:07)
--- NOTE | 2017-09-27 16:40 | ECHO ---
[email or web address] [address] [address] Main: [phone] Fax: Transthoracic Echocardiogram Name: DAVID OROURKE MR#: [id number] Study Date: 09/27/2017 Study Time: 07:42 AM Date of : 1960 Age: 56 year(s) Height: 162.6 cm (64 in.) Weight: 136.08 kg (300 lb.) BSA: 2.32 m2 Gender: Female Examination: Echo Indication: Hypoxemia, Elevated BNP, Tachycardia at 156 BPM Image Quality: Contrast: Requested by: Louis Rodriguez BP: 105 mmHg/79 mmHg Heart Rate: Rhythm: Indication: Hypoxemia, Elevated BNP, Tachycardia at 156 BPM Procedure Staff Tube Trailer Filler: Venkatesh Arrieta RDCS Reading Physician: Tahir Lopez MD Requesting Provider: Measurements: Chambers Valvular Assessment AV/MV Valvular Assessment TV/PV Normal Normal Normal Name Value Range Name Value Range Name Value Range Ao Adela (MM): 3.3 cm (2.2 cm-3.7 AV Vmax: 1.13 m/s (1 m/s-1.7 TR Vmax: 2.57 mm/s ( - ) cm) m/s) TR PGmax: 26 mmHg ( - ) IVSd (2D): 1.0 cm (0.6 cm-1.1 AV maxP mmHg ( - ) syst. PAP: 31 mmHg ( - ) cm) LVOT Vmax: 1.08 m/s (0.7 m/s-1.1 PV Vmax: 1.07 m/s (0.6 m/s-0.9 LVDd (2D): 3.7 cm (3.9 cm-5.3 m/s) m/s) cm) MV E Vmax: 1.00 m/s ( - ) PV PGmax: 5 mmHg ( - ) LVDs (2D): 2.8 cm (2.1 cm-4 cm) LVPWd (2D): 1.2 cm ( - ) LVEF (MOD4): 49 % (>=55 %) Continued Measurements: Chambers Valvular Assessment AV/MV Valvular Assessment TV/PV Name Value Name Value Name Value LADs Lon.9 cm MV E/E' Septal: 21.80 CVP (est.): 5 mmHg LA Area: 16.1 cm2 MV E/E' Lateral: 11.00 Findings: Left Ventricle: Normal size left ventricle. Mild concentric LV hypertrophy. Global hypercontractility of the left ventricle. EF is 49 %. No regional wall motion abnormality. Diastolic dysfunction is present. . There is tachycardia at 156 BPM with a EF estimated at 50%. Right Ventricle: Patient: DAVID OROURKE Study Date: 09/27/2017 Page 1 of 2 07:42 AM Normal size right ventricle. Normal RV function. Left Atrium: The left atrium is normal in size. Right Atrium: The right atrium is normal in size. Mitral Valve: The mitral valve is normal in appearance and function. There is no mitral valve regurgitation. Aortic Valve: The aortic valve is tri-leaflet and functions normally. There is no aortic valve regurgitation. No aortic valve stenosis is present. Tricuspid Valve: The tricuspid valve is normal in appearance and function. Pulmonic Valve: The pulmonic valve is normal in appearance and function. Aorta: The aorta is normal. Pericardium: No pericardial effusion. (No Signature Object) Patient: DAVID OROURKE Study Date: 09/27/2017 Page 2 of 2 07:42 AM [id number]
--- NOTE | 2017-09-27 17:43 | ASMTCMCOM ---
CM Note CM Note Notes: 56 yr old female resident of [facility] admitted for sepsis, Acute resp failure, Encephalopathy, Obesity, Dysphasia, PE, Pain synd-narc dependency. Has a L LE ulcer and receiving wound care, on the vent. CM to follow. Patient will return to [facility] on discharge. Date Signed: 09/27/2017 05:42 PM Electronically Signed By:Shayla Singh LCSW
--- NOTE | 2017-09-27 18:29 | PCMIDPN ---
Assessment/Plan: Assessment/Plan: * Septic shock due to group A strep bacteremia likely from left lower extremity cellulitis associated with open wound: Critically ill with 2 pressors for blood pressure support and now intubated. Given blood culture findings, will modify antibiotic therapy from daptomycin/meropenem to ertapenem (tolerating meropenem and cannot obtain any information about ceftriaxone allergy) and clindamycin (combat toxin production). Repeat blood cultures to assess for clearing of bacteremia. No erythroderma as often is present in the setting of toxic shock syndrome. If does not improve further with antibiotic therapy and supportive care, could consider addition of IVIG for severe streptococcal disease based on limited data. 09/27/17 18:25 Subjective: Intubated, sedated, on norepinephrine and vasopressin for blood pressure support. On vitamin-C and steroids for sepsis. Objective: Vital Signs Temp Pulse Resp BP Pulse Ox 39.7 C H 152 H 22 H 111/74 98 09/27/17 16:36 09/27/17 17:17 09/27/17 17:00 09/27/17 17:17 09/27/17 17:00 Laboratory Results 09/27/17 05:35 09/27/17 12:30 09/26/17 09/27/17 09/28/17 05:59 05:59 05:59 Intake Total 6422.2 Output Total 850 160 Balance 5572.2 -160 Daptomycin # 2 Meropenem # 2 Blood cultures 2/2 group A Streptococcus - Physical Exam General Appearance: other (Intubated, sedated) EENT: No scleral icterus, No conjunctival petechiae Respiratory: coarse breath sounds Cardiac/Chest: tachycardia, No systolic murmur Extremities: inflammation (Left lower extremity with open ulceration over anterior phipps and faint erythema extending into medial thigh; right anterior phipps with open ulceration and surrounding erythema; no fluctuance or bulla noted ) Skin: other (Ecchymosis present in both inguinal regions and lateral hip on left ) ICD10 Worksheet Patient Problems: Problems Problem Status Onset Sepsis Acute
[2017-09-27] MEDS: CHLORHEXIDINE GLUCONATE 15 ML UDL PO SCH (20:07)
[2017-09-27] MEDS ORDERED: INSULIN REGULAR HUMAN 100 UNIT/ML UNIT SC SCH (21:00)
[2017-09-28] MEDS: NOREPINEPHRINE BITARTRATE 4 MG in D5W 500 ML IV SCH ×2 (00:55→20:50)
[2017-09-28] MEDS ORDERED: D5W 1,000 ML IV SCH (02:00)
[2017-09-28] MEDS ORDERED: INSULIN REGULAR HUMAN 100 UNIT in NS 100 ML IV SCH (02:00)
[2017-09-28] MEDS: HYDROCORTISONE 100 MG/2 ML VIAL IVP SCH ×4 (02:34→20:50)
[2017-09-28] MEDS: THIAMINE HCL IV SCH (02:35)
[2017-09-28] MEDS: NS IV SCH (02:35)
[2017-09-28] MEDS: ASCORBIC ACID 1,500 MG in D5W 100 ML IV SCH ×4 (02:35→20:50)
[2017-09-28] MEDS: PROPOFOL/EMULSION 100 ML IV SCH ×2 (02:39→15:42)
[2017-09-28] MEDS: NS 1,000 ML IV SCH ×2 (02:56→12:23)
[2017-09-28] MEDS: ACETAMINOPHEN 650 MG SUPP PR PRN (03:04)
[2017-09-28] MEDS: HEPARIN/DEXTROSE 500 ML IV SCH (04:35)
[2017-09-28 04:46] LABS: INR 1.27 (0.83-1.16); PROTIME(PATIENT) 16.1 SEC (12.0-15.0)
[2017-09-28] MEDS: CLINDAMYCIN 600 MG/DEXTROSE 50 ML IV SCH ×3 (08:14→23:55)
[2017-09-28] MEDS: FAMOTIDINE 20 MG/NACL 50 ML IV SCH ×2 (08:26→20:50)
[2017-09-28] MEDS: VASOPRESSIN 25 UNIT in D5W 250 ML IV PRN (08:27)
[2017-09-28] MEDS: CHLORHEXIDINE GLUCONATE 15 ML UDL PO SCH ×2 (08:28→20:50)
--- NOTE | 2017-09-28 08:48 | PCMIDPN ---
Assessment/Plan: Assessment/Plan: 1. Sepsis secondary to Group A strep bacteremia/LLE cellulitis and wounds: - Acute events of yesterday noted-difficult intubated etc. thick secretions suctioned til cleared. -Remains febrile on pressors, -f/u blood cx from today in progress -Concerned about possible extension of infection deeper -REcommend further imaging with Ct or MRI. If unable to get, recommend surgery evaluation of Left thigh/leg -care coordinated with hospitalist team -Currently on Invanz + Clinda for above. -Prognosis guarded. 2. Leukocytosis: - likely multifactorial given current infection, acute events yesterday, steroids etc. - continue to follow labs. 3. Vanco, ceftraixone allergy: - reaction unknown Meds invanz 1g daily- 09/27/17 clinda 600mg q8- 09/27/17 s/p dapto, merem Subjective: Overnight events reviewed, difficult intubated and ngt placement. now with OGT. febrile to 40.2 degrees C. sedated. on pressors. Moderate secretions suctioned at time of ETT placement per note. Erythema noted on LLE over knee, some what mottled look. Objective: Vital Signs Temp Pulse Resp BP Pulse Ox 39.8 C H 147 H 23 H 105/73 97 09/28/17 08:00 09/28/17 08:00 09/28/17 08:00 09/28/17 08:00 09/28/17 08:00 Laboratory Results 09/28/17 04:00 09/28/17 04:00 09/27/17 09/28/17 09/29/17 05:59 05:59 05:59 Intake Total 6422.2 7267.3 Output Total 850 1610 Balance 5572.2 5657.3 - Physical Exam General Appearance: other (intubated , sedated. ) EENT: ET Tube, other (OGT) Respiratory: coarse breath sounds Cardiac/Chest: tachycardia Extremities: swelling (LLE with swelling of leg and knee. mild erythema over upper leg, knee and into thigh. upper medial left thigh with deep erythema area with features of possibly early necrotic changes. with flattened blister noted. lateral thigh with some dense erythema patch as well. LLE warm to touch compared to RLE. RIght phipps wound oval, superficial. LLE phipps wounds superficial. ) Abdomen: non-tender, soft, other (sfot BS), No distended Pelvic Exam: [place] Skin: other (see above) ICD10 Worksheet Patient Problems: Problems Problem Status Onset Sepsis Acute
[2017-09-28] MEDS ORDERED: DAPTOMYCIN IV SCH (09:00)
[2017-09-28] MEDS ORDERED: NS IV SCH (09:00)
[2017-09-28] MEDS: ERTAPENEM 1 GM VIAL IV SCH (09:59)
--- NOTE | 2017-09-28 11:39 | PDINTPN ---
Entrepreneurship Program Director Progress Note Assessment/Plan: Assessment: Sepsis: Group A Strep in blood. Likely due to phipps wounds/cellulitis. On Meropenem/daptomycin. May be able to narrow coverage. Lactate still elevated, still has WBC/fever. Concering for ongoing infection/fasciitis. Tachycardia: Sinus. Improved with fluid resuscitation. ? Narcotic/b-reji withdrawal, but minimal improvement with IV Lopressor. Metabolic acidosis: NAG and anion gap (elevated lactate). Hypoglycemia: ? due to hepatic dysfunction. Plan: Increase Vent rate. Decrease sedation as tolerated. CT Legs to evaluate for fasciitis.. 09/28/17 11:46 Subjective: Intubated, sedated. Objective: Vital Signs Temp Pulse Resp BP Pulse Ox 38.2 C 126 H 20 90/56 L 98 09/28/17 11:00 09/28/17 11:20 09/28/17 11:00 09/28/17 11:20 09/28/17 11:00 Microbiology 09/26/17 12:05 Urine Culture - Final Urine,Catheterized Laboratory Results 09/28/17 04:00 09/28/17 04:00 09/27/17 09/28/17 09/29/17 05:59 05:59 05:59 Intake Total 6422.2 7267.3 Output Total 850 1610 Balance 5572.2 5657.3 PT 16.1 SEC (12.0-15.0) H 09/28/17 04:00 INR 1.27 (0.83-1.16) H 09/28/17 04:00 CXR: Bilateral infiltrates, basilar consolidation. Little change from 09/27. Images reviewed by me. Laboratory Tests 09/28/17 06:05 VBG pH 7.20 L VBG HCO3 15 L VBG Total CO2 16 L Laboratory Tests 09/28/17 04:00 VBG Lactic Acid 5.4 H Physical Exam - Physical Exam General Appearance: alert, no apparent distress EENT: normal ENT inspection Neck: normal inspection Respiratory: chest non-tender, lungs clear Cardiac/Chest: normal peripheral pulses, regular rate, rhythm, edema Abdomen: normal bowel sounds, non-tender Skin: other (erythema let medial thigh. Ecchymosis wtih blister riht upper thigh. Nontender, no fluctuance) Extremities: normal inspection Neuro/Psych: normal mood/affect, oriented x 3, No alert ICD10 Worksheet Patient Problems: Problems Problem Status Onset Sepsis Acute
[2017-09-28] MEDS ORDERED: IOPAMIDOL (ISOVUE-300) 100 ML BTL ONE (14:31)
[2017-09-28] MEDS ORDERED: RIVAROXABAN 20 MG TAB TUBE SCH (14:45)
--- NOTE | 2017-09-28 14:48 | HOSPPROG ---
Hospitalist Progress Note Assessment/Plan: # septic shock-(tachycardia, fever, leukocytosis and hypotension)- source strep bacteremia from skin infection Patient remains hypotensive requiring pressor support with rising lactate this a.m. 5.4- remains febrile with T-max 40.4 degrees this a.m. Oxygen saturations 100% on 40% FiO2 - continue IV albumin - continue IV fluid support - continue IV pressor support - continue IV antibiotics # Streptococcus bacteremia- suspect skin source - erythema and skin discoloration of the medial aspect of the thigh worsen this a.m. - CT lower extremity rule out progressive fasciitis - continue clindamycin and ertapenem per Infectious Disease # tachycardia- telemetry (personally reviewed and interpreted) sinus tachycardia 120s (down from 1 60s overnight) Suspect secondary to sepsis- lower suspicion for acute pulmonary embolism as patient has been on outpatient full-dose anticoagulation - continue aggressive fluid resuscitation and supportive care - continue full-dose anticoagulation # severe hypoglycemia- blood glucose less than 40 morning after admission- blood glucoses rebounded into the 200s overnight - continue dextrose replacement as needed - monitor closely # metabolic acidosis- ABG with pH 7.2- lactate climbing - patient currently vented - continue supportive care - received 1 amp bicarbonate yesterday - CT lower extremity rule out ongoing source of infection # severe thrombocytopenia-platelets dropped to 134-> 60s today-suspect related to sepsis -however also on heparin drip overnight - transitioned off heparin drip today to home Xarelto per tube # chronic narcotic dependency- patient using methadone as outpatient- may need T consider using fentanyl or other narcotic for sedation post intubation # history of pulmonary embolism on outpatient Xarelto # prophylaxis- Xarelto # diet NPO- start tube feeds # disposition> 2MN as remains critically ill requiring high level critical care support I have discussed the case with Dr. Rodriguez- plan for CT lower extremity to rule out fasciitis Subjective: Progressive lower knee discoloration Objective: Vital Signs Temp Pulse Resp BP Pulse Ox 38.3 C 129 H 24 H 90/59 L 100 09/28/17 14:00 09/28/17 14:00 09/28/17 14:00 09/28/17 14:00 09/28/17 14:00 Microbiology 09/26/17 12:05 Urine Culture - Final Urine,Catheterized Laboratory Results 09/28/17 04:00 09/28/17 04:00 09/27/17 09/28/17 09/29/17 05:59 05:59 05:59 Intake Total 6422.2 7267.3 Output Total 850 1610 Balance 5572.2 5657.3 PT 16.1 SEC (12.0-15.0) H 09/28/17 04:00 INR 1.27 (0.83-1.16) H 09/28/17 04:00 - Physical Exam Constitutional: obese Eyes: anicteric sclera Ears, Nose, Mouth, Throat: dry mucous membranes Cardiovascular: tachycardia Respiratory: No expiratory wheeze Gastrointestinal: normoactive bowel sounds Genitourinary: no bladder fullness Skin: mottled, erythema, other (Wounds of the lower extremity with discolored extending up into the thigh) Musculoskeletal: No asymmetric calves Neurologic: No AAOx3 Psychiatric: No agitated Lymph, Heme, Immunologic: No lymphangitic streaking ICD10 Worksheet Patient Problems: Problems Problem Status Onset Sepsis Acute
[2017-09-28] MEDS ORDERED: THIAMINE HCL 100 MG TAB TUBE SCH (15:00)
[2017-09-28] MEDS: fentaNYL/NACL 100 ML IV SCH (20:49)
[2017-09-28] MEDS: D5W NS 1,000 ML IV SCH (20:50)
[2017-09-29] MEDS: NOREPINEPHRINE BITARTRATE 4 MG in D5W 500 ML IV SCH (02:54)
[2017-09-29] MEDS: HYDROCORTISONE 100 MG/2 ML VIAL IVP SCH ×3 (04:56→17:11)
[2017-09-29] MEDS: ASCORBIC ACID 1,500 MG in D5W 100 ML IV SCH ×3 (05:09→17:42)
[2017-09-29] MEDS ORDERED: PROTOCOL MAGNESIUM 1 DOSE IV PRN (05:24)
[2017-09-29] MEDS ORDERED: PROTOCOL POTASSIUM 1 DOSE MISC PRN (05:24)
[2017-09-29] MEDS ORDERED: PROTOCOL CALCIUM 1 DOSE IV PRN ×2 (05:24→10:09)
[2017-09-29] MEDS ORDERED: PROTOCOL K PHOSPHATE 1 DOSE IV PRN (05:24)
[2017-09-29] MEDS: D5W NS 1,000 ML IV SCH (06:19)
[2017-09-29] MEDS ORDERED: CALCIUM GLUCONATE 50 ML IV ONE ×2 (06:24→14:40)
[2017-09-29] MEDS ORDERED: MAGNESIUM SULF 1 GM/DEXTROSE 100 ML IV ONE (06:24)
[2017-09-29] MEDS ORDERED: CALCIUM GLUCONATE 1 GM in D5W 50 ML IV ONE ×2 (06:30→15:00)
[2017-09-29] MEDS: POTASSIUM Cl (KCl) 50 ML IV SCH ×2 (07:32→08:47)
[2017-09-29] MEDS ORDERED: CLINDAMYCIN 600 MG/DEXTROSE 50 ML IV SCH (08:00)
[2017-09-29] MEDS: THIAMINE HCL 100 MG TAB TUBE SCH ×2 (08:54→21:26)
[2017-09-29] MEDS: FAMOTIDINE 20 MG/NACL 50 ML IV SCH ×2 (08:54→21:26)
[2017-09-29] MEDS: ERTAPENEM 1 GM VIAL IV SCH (08:54)
[2017-09-29] MEDS: CHLORHEXIDINE GLUCONATE 15 ML UDL PO SCH ×2 (08:54→21:26)
--- NOTE | 2017-09-29 14:11 | HOSPPROG ---
Hospitalist Progress Note Assessment/Plan: # septic shock-(tachycardia, fever, leukocytosis and hypotension)- 2/2 strep bacteremia from skin infection/suspected toxic shock Patient remains hypotensive requiring pressor support - lactate 5.4 - WBC up to 22 Oxygen saturations 100% on 40% FiO2 - continue IV albumin - continue IV fluid support - continue IV pressor support - continue IV antibiotics - continue IV steroids - consulting surgery to review imaging # Streptococcus bacteremia- suspect skin source - erythema and skin discoloration spreading across all [address] lower extremity (personally reviewed and interpreted) findings consistent with likely osteomyelitis no abscesses appreciated - continue IV clindamycin and ertapenem per Infectious Disease # tachycardia- telemetry (personally reviewed and interpreted) sinus tachycardia 120s (down from 160s) Suspect secondary to sepsis- lower suspicion for acute pulmonary embolism as patient has been on outpatient full-dose anticoagulation - continue aggressive fluid resuscitation and supportive care - continue full-dose anticoagulation # severe hypoglycemia- blood glucose less than 40 morning after admission- blood glucoses rebounded overnight - discontinue dextrose replacement - follow - monitor closely # metabolic acidosis- ABG with pH 7.2- lactate elevated - patient currently vented - continue supportive care # severe thrombocytopenia-platelets dropped to 134-> 50s today-suspect related to sepsis -dc'd heparin drip overnight - transitioned off heparin drip to home Xarelto per tube # chronic narcotic dependency- patient using methadone as outpatient- cont fentanyl gtt for sedation # history of pulmonary embolism on outpatient Xarelto # prophylaxis- Xarelto # diet NPO- start tube feeds # disposition> 2MN as remains critically ill requiring high level critical care support I have discussed the case with Dr. Zamora- will consult surgery as pt remains gravely ill with progressive skin exam Subjective: skin exam worsening Objective: Vital Signs Temp Pulse Resp BP Pulse Ox 37.3 C 126 H 24 H 96/72 L 100 09/29/17 13:00 09/29/17 13:00 09/29/17 13:00 09/29/17 13:00 09/29/17 13:00 Microbiology 09/26/17 12:05 Urine Culture - Final Urine,Catheterized Laboratory Results 09/29/17 04:00 09/29/17 04:00 09/28/17 09/29/17 09/30/17 05:59 05:59 05:59 Intake Total 7267.3 5430 Output Total 1610 712 Balance 5657.3 4718 PT 16.1 SEC (12.0-15.0) H 09/28/17 04:00 INR 1.27 (0.83-1.16) H 09/28/17 04:00 - Physical Exam Constitutional: obese Eyes: anicteric sclera Ears, Nose, Mouth, Throat: dry mucous membranes Cardiovascular: tachycardia Respiratory: No expiratory wheeze Gastrointestinal: normoactive bowel sounds Genitourinary: no bladder fullness Skin: erythema (progressing up bilateral LE with blistering) Musculoskeletal: No asymmetric calves Neurologic: No AAOx3 Psychiatric: No agitated Lymph, Heme, Immunologic: no cervical LAD ICD10 Worksheet Patient Problems: Problems Problem Status Onset Sepsis Acute
--- NOTE | 2017-09-29 14:58 | PCMIDPN ---
Assessment/Plan: Assessment: Streptococcal toxic shock syndrome. The patient with group a strep in the blood and multi organ damage. She has developed some blisters on the lower extremity where the initial soft tissue infection is noted. In retrospect her initial low normal white blood cell count was likely depressed secondary to sepsis. I interpret the return of the leukocytosis as appropriate. Patient is on ertapenem and clindamycin. Will continue the ertapenem given the patient's allergy to ceftriaxone. Plan: 1. Continue both ertapenem and clindamycin. 2. Follow clinical course as well as CBC values. 3. Follow up on repeat blood cultures. Subjective: Patient is resting in her hospital bed. She remains intubated but off pressors. No significant fevers. Appears to be tolerating both ertapenem and clindamycin. Objective: Ertapenem # 3 Clindamycin # 2 Vital Signs Temp Pulse Resp BP Pulse Ox 37.3 C 124 H 24 H 102/69 99 09/29/17 14:00 09/29/17 14:00 09/29/17 14:00 09/29/17 14:00 09/29/17 14:00 Microbiology 09/26/17 12:05 Urine Culture - Final Urine,Catheterized Laboratory Results 09/29/17 04:00 09/29/17 04:00 09/28/17 09/29/17 09/30/17 05:59 05:59 05:59 Intake Total 7267.3 5430 Output Total 1610 712 Balance 5657.3 4718 - Physical Exam General Appearance: WD/WN, no apparent distress, obese Respiratory: No lungs clear, No normal breath sounds, No respiratory distress Cardiac/Chest: regular rate, rhythm, tachycardia Extremities: non-tender, pedal edema, erythema, other (Blistering on the left lower extremity.), No normal inspection Skin: normal color, warm/dry, rash ICD10 Worksheet Patient Problems: Problems Problem Status Onset Sepsis Acute
[2017-09-29] MEDS: fentaNYL/NACL 100 ML IV SCH (15:24)
[2017-09-29] MEDS: NS 1,000 ML IV SCH (15:25)
--- NOTE | 2017-09-29 16:08 | PDCONSULT ---
Centerless Grinding Machine Adjuster Note: 56 y/o female admitted 09/26 for BLE cellulitis. BC grew group A strep. She was started on PCN/Clinda, but has not been clinically improving. Sensitivity testing today report the org to be resistant to Clinda and she was switched to Linezoilid. Surgical consult was requested to rule out necrotizing fasciitis. Patient was seen and examined with her ICU nurse Daisy. She is intubated and sedated. She has what appear to be chronic ulcers of the anterior tibial regions bilaterally. Cellulitis extends into the upper thighs bilaterally with superficial bullaie developing in a diffuse pattern c/w epidermolysis There is no crepitance or fluctuance. CTA from yesterday reviewed. swelling and edema of the skin and subcutaneous tissues without obvious muscle involvement Imp: bilateral lower extremity cellulitis-severe with resistant group A strep Rec: hold off on surgery for now. Assess response to Linezolid. Consider MRI imaging or surgical exploration if not improving. Annie Kelly MD, FACS
--- NOTE | 2017-09-29 17:03 | PDINTPN ---
Golf Course Keeper Progress Note Assessment/Plan: Assessment: Sepsis: Group A Strep in blood. Likely due to phipps wounds/cellulitis. On PCN/ linezolid. CT negative for myositis/fasciitis Tachycardia: Sinus. Improved with fluid resuscitation, but still in 120s. ? Narcotic/b-reji withdrawal, but minimal improvement with IV Lopressor. Metabolic acidosis: NAG and anion gap (elevated lactate). Persists Hypoglycemia: ? due to hepatic dysfunction. Acute respiratory failure: Gas exchange fairly good, still needing support due to weakness and inability to protect airway. Plan: Continue mechanical ventilation. Antibiotics per ID. Follow clinically for signs of further sepsis. Prognosis remains guarded. Discussed with sister. 35 minutes cc time managing tachycardia, fluid status, ventilator for respiratory failure. 09/29/17 17:05 Subjective: Intubated, unresponsive. Objective: Vital Signs Temp Pulse Resp BP Pulse Ox 37.3 C 120 H 24 H 93/76 L 100 09/29/17 16:37 09/29/17 16:37 09/29/17 16:37 09/29/17 16:00 09/29/17 16:37 Laboratory Results 09/29/17 04:00 09/29/17 04:00 09/28/17 09/29/17 09/30/17 05:59 05:59 05:59 Intake Total 7267.3 5430 Output Total 1610 712 Balance 5657.3 4718 PT 16.1 SEC (12.0-15.0) H 09/28/17 04:00 INR 1.27 (0.83-1.16) H 09/28/17 04:00 Laboratory Tests 09/29/17 03:40 pCO2 27 L pO2 94 H Total CO2 14 L ABG pH 7.31 L ABG PO2/FiO2 Ratio 235 O2 Concentration % 40 Actual Respiration Rate 24 SIMV YES Tidal Volume 500 PEEP 5 CXR: Basilar consolidation/right effusion, little change. Images reviewed by me. Physical Exam - Physical Exam General Appearance: alert, no apparent distress EENT: normal ENT inspection Neck: normal inspection Respiratory: normal breath sounds Cardiac/Chest: tachycardia, No edema Abdomen: normal bowel sounds, non-tender, soft Skin: other (Bilateral leg erythema and areas of echymosis.) Extremities: other (skin as above) Neuro/Psych: No alert ICD10 Worksheet Patient Problems: Problems Problem Status Onset Sepsis Acute
[2017-09-29] MEDS: LINEZOLID 600 MG/DEXTROSE 300 ML IV SCH (17:07)
[2017-09-29] MEDS: RIVAROXABAN 20 MG TAB TUBE SCH (17:11)
[2017-09-29] MEDS: PENICILLIN G POTASSIUM 4,000,000 UNIT in D5W 100 ML IV SCH ×2 (18:35→22:30)
[2017-09-29] MEDS: INSULIN LISPRO 100 UNIT/ML SC SCH (18:35)
--- NOTE | 2017-09-29 19:05 | WOCRNPDOC ---
WOCRN Advanced Assessment Note - Skin Integrity Problem, Advanced Assess Left Lower Leg Venous Stasis Ulcer Dressing Type: Other Other Dressing Type: Aquacel ag+ border foam. Dressing Description: Clean/Dry, Intact Exudate Amount: Moderate Exudate Characteristic(s): Serosanguinous Integumentary Issue Intervention: Visualized Under Dressing (dressing was changed eariler today) Obed Wound Tissue: Erythema, Denuded (to 6 cm obed wound mainly inferior to current chronic wound), Hemosiderin Staining, Venous Dermatitis, Shiny, Taught, Thin, Painful/Tender Wound Bed Constitution: Red/[place]uu - Non Granular Tissue (30%), Adhered Slough (70 %) Skin Integrity Problem Comment: Per shotblast operator is draining large quantities and has saturated the large aquacel border dressing in two days. Obed wound skin is not macerated however. Per RN it would be a difficult wound to wrap so border dressings will be continued for a few more days, however if drainage doesnt slow down a super absorbant will need to be placed, which would require securment with kerlix. Wound devolving and necrosing more. Added puracyn wound gel to wound bed to increase moisture as despite the drainage around the edges the main wound bed appears very dry. Wound care will follow and orders will be updated. Right Lower Leg Venous Stasis Ulcer Dressing Type: Other Other Dressing Type: Aquacel ag+ border foam. Dressing Description: Clean/Dry, Intact Exudate Amount: Moderate Exudate Characteristic(s): Serosanguinous Integumentary Issue Intervention: Visualized Under Dressing (dressing changed today. ) Wound Bed Constitution: Adhered Slough (100%) Skin Integrity Problem Comment: Same large amount of drainage from this leg, however obed wound is not denuded. Wound bed however is necrosed and deteriorated. Added puracyn wound gel to wound bed to increase moisture. Wound care will follow and orders will be updated. Left Hip Blister Dressing Type: Open to Air Obed Wound Tissue: Erythema (to 15 cm obed blister) Wound Bed Constitution: Intact Serous Filled Blister (x2 adjacent to each other) Site Measurement - Head-to-Toe Length X Width X Depth (cm): [id number] Skin Integrity Problem Comment: After much discussion it was decided to cover wound bed with Allevyn life large dressing to help reduce friction forces. Blister will likely deroof as the area will be moved often during repositioning. Left Medial Thigh Blister Dressing Type: Open to Air Integumentary Issue Intervention: Dressing Applied Wound Bed Constitution: Intact Serous Filled Blister Site Measurement - Head-to-Toe Length X Width X Depth (cm): 2.4x3.3xblister Skin Integrity Problem Comment: Covered with sorbact border dressing may leave intact for up to 5 days. Right Anterior Lower Proximal Leg Blister Dressing Type: Open to Air Exudate Amount: Scant Exudate Characteristic(s): Serosanguinous Obed Wound Tissue: Erythema Site Measurement - Head-to-Toe Length X Width X Depth (cm): 0.8x0.7x0.1 with multiple other small openings in an area of approx 5x5 cm. Skin Integrity Problem Comment: De roofed blister sites proximal to phipps venous stasis ulcer. RN to cover with Alleyvn life. Hopefully with the change in abx the blistering will subside. Wound care will follow. Daisy GARNETT in room for all care and aware of plan.
[2017-09-29] MEDS ORDERED: LINEZOLID 600 MG/DEXTROSE 300 ML IV SCH (21:00)
[2017-09-29] MEDS ORDERED: POTASSIUM CL 20 MEQ/15 ML UDCUP TUBE ONE (21:45)
[2017-09-30] MEDS: HYDROCORTISONE 100 MG/2 ML VIAL IVP SCH ×5 (00:30→23:46)
[2017-09-30] MEDS: ASCORBIC ACID 1,500 MG in D5W 100 ML IV SCH ×4 (00:30→17:17)
[2017-09-30] MEDS ORDERED: POTASSIUM CL 20 MEQ/15 ML UDCUP TUBE ONE (01:00)
[2017-09-30] MEDS: PENICILLIN G POTASSIUM 4,000,000 UNIT in D5W 100 ML IV SCH ×4 (03:26→14:21)
[2017-09-30] MEDS: NS 1,000 ML IV SCH ×2 (03:28→18:41)
[2017-09-30] MEDS: LINEZOLID 600 MG/DEXTROSE 300 ML IV SCH ×2 (05:48→15:49)
[2017-09-30] MEDS ORDERED: MAGNESIUM SULF 1 GM/DEXTROSE 100 ML IV ONE (07:31)
[2017-09-30] MEDS ORDERED: POTASSIUM Cl (KCl) 50 ML IV ONE (07:31)
[2017-09-30] MEDS ORDERED: CALCIUM GLUCONATE 50 ML IV ONE (07:31)
[2017-09-30] MEDS ORDERED: POTASSIUM CL 10 MEQ TAB TUBE ONE (07:45)
[2017-09-30] MEDS: THIAMINE HCL 100 MG TAB TUBE SCH ×2 (07:55→22:43)
[2017-09-30] MEDS: FAMOTIDINE 20 MG/NACL 50 ML IV SCH ×2 (07:56→23:44)
[2017-09-30] MEDS ORDERED: CALCIUM GLUCONATE 1 GM in D5W 50 ML IV ONE (08:00)
[2017-09-30] MEDS: CHLORHEXIDINE GLUCONATE 15 ML UDL PO SCH ×2 (08:03→23:43)
[2017-09-30] MEDS: INSULIN LISPRO 100 UNIT/ML SC SCH ×3 (09:48→18:16)
--- NOTE | 2017-09-30 10:50 | PCMIDPN ---
Assessment/Plan: Assessment/Plan: * Septic shock/toxic shock syndrome due to group A strep bacteremia from left lower extremity cellulitis associated with open wound: Off pressors today. Erythema over left lower extremity significantly more prominent than my initial exam on 09/27/17 with extension to involve entirety of posterior buttock. Continue penicillin and linezolid (linezolid to combat toxin production since isolate is clindamycin resistant). Repeat blood cultures show clearing of bacteremia. Continue to follow clinical exam and appreciate ongoing surgical evaluation. Prognosis remains guarded given severity of illness. Will hold off on addition of IVIG given no longer requiring vasopressor support. * Leukocytosis: Leukocytosis after initial relative leukopenia. Likely this is positive finding in terms of host inflammatory response. 09/30/17 10:44 09/30/17 10:53 Subjective: Patient remains intubated. Off vasopressor support. Objective: Vital Signs Temp Pulse Resp BP Pulse Ox 36.9 C 114 H 31 H 113/74 98 09/30/17 08:12 09/30/17 08:12 09/30/17 08:12 09/30/17 08:00 09/30/17 08:12 Laboratory Results 09/29/17 04:00 09/30/17 06:15 09/29/17 09/30/17 10/01/17 05:59 05:59 05:59 Intake Total 5430 4468 Output Total 712 1100 Balance 4718 3368 Penicillin # 2 Linezolid # 2 Antibiotics # 5 Blood cultures 09/28/17 no growth - Physical Exam General Appearance: no apparent distress, non-toxic, other (Opens eyes to name) EENT: ET Tube, No scleral icterus Respiratory: lungs clear, other (Mechanically ventilated), No respiratory distress (Anterolaterally) Cardiac/Chest: tachycardia Extremities: inflammation (For left lower extremity with erythema extending from knee to medial thigh and lateral thigh with involvement of entirety of left buttock with some denuded blister at gluteal cleft; superficial denuded blister laterally; denuded blister medially in thigh; patchy erythema over right knee) Abdomen: non-tender, No distended Skin: other (No erythroderma present) ICD10 Worksheet Patient Problems: Problems Problem Status Onset Sepsis Acute
[2017-09-30 11:19] LABS: PLATELET COUNT 60 10^3/uL (150-400)
[2017-09-30] MEDS ORDERED: K PHOS 10 MMOL in NS 250 ML IV ONE (12:00)
--- NOTE | 2017-09-30 12:40 | ASMTCMCOM ---
CM Note CM Note Notes: Patient has Group A strep in the blood, issues with tachycardia, metabolic acidosis, and hypoglycemia due to hepatic dysfunction. Patient's prognosis remains guarded. Ongoing surgical evaluation. Patient remains intubated and non responsive. Dr. Rodriguez spoke with the patient's sister yesterday. CM will follow. Date Signed: 09/30/2017 12:39 PM Electronically Signed By:Eugenia Larkin LCSW
--- NOTE | 2017-09-30 13:53 | SOAPPROG ---
SOAP Progress Note Assessment/Plan: Assessment: Wound stable but afebrile/WBC 87433 No definite surgical indications MARGARETTE Plan: Continue antibiotics 09/30/17 13:52 Objective: Vital Signs Temp Pulse Resp BP Pulse Ox 36.9 C 112 H 22 H 119/78 99 09/30/17 13:00 09/30/17 13:00 09/30/17 13:00 09/30/17 13:00 09/30/17 13:00 Laboratory Results 09/30/17 11:10 09/30/17 11:10 09/29/17 09/30/17 10/01/17 05:59 05:59 05:59 Intake Total 5430 4468 Output Total 712 1100 Balance 4718 3368 PT 16.1 SEC (12.0-15.0) H 09/28/17 04:00 INR 1.27 (0.83-1.16) H 09/28/17 04:00 ICD10 Worksheet Patient Problems: Problems Problem Status Onset Sepsis Acute
--- NOTE | 2017-09-30 14:43 | HOSPPROG ---
Hospitalist Progress Note Assessment/Plan: # septic shock-(tachycardia, fever, leukocytosis and hypotension)- 2/2 strep bacteremia from skin infection/ toxic shock Patient remains hypotensive requiring pressor support - WBC up to 26 Oxygen saturations 100% on 40% FiO2 - pressors weaned overnight - continue IV fluid support - continue IV antibiotics - continue IV steroids - consulting surgery to review imaging # Streptococcus bacteremia/toxic shock- skin discoloration is more pronounced on the left leg extending up into the buttock CT lower extremity (personally reviewed and interpreted) findings consistent with likely osteomyelitis no abscesses appreciated - continue IV penicillin G and linezolid per Infectious Disease # tachycardia- telemetry (personally reviewed and interpreted) sinus tachycardia 110s (down from 120s) Suspect secondary to sepsis- lower suspicion for acute pulmonary embolism as patient has been on outpatient full-dose anticoagulation - continue aggressive fluid resuscitation and supportive care - continue full-dose anticoagulation # severe hypoglycemia- resolved- - monitor closely # non gap metabolic acidosis- lactate down to 2 from peak of 5.4 - continue aggressive care and ventilator support # severe thrombocytopenia-platelets stable in the 60s - transitioned off heparin drip to home Xarelto per tube # chronic narcotic dependency- patient using methadone as outpatient- cont fentanyl gtt for sedation # history of pulmonary embolism on outpatient Xarelto # prophylaxis- Xarelto # diet NPO- start tube feeds # disposition> 2MN as remains critically ill requiring high level critical care support I have discussed the case with Dr. Camp-will continue forward on penicillin G and linezolid Subjective: Skin infection extending Objective: Vital Signs Temp Pulse Resp BP Pulse Ox 36.9 C 110 H 25 H 119/81 H 99 09/30/17 14:00 09/30/17 14:00 09/30/17 14:00 09/30/17 14:00 09/30/17 14:00 Laboratory Results 09/30/17 11:10 09/30/17 11:10 09/29/17 09/30/17 10/01/17 05:59 05:59 05:59 Intake Total 5430 4468 Output Total 712 1100 Balance 4718 3368 PT 16.1 SEC (12.0-15.0) H 09/28/17 04:00 INR 1.27 (0.83-1.16) H 09/28/17 04:00 - Physical Exam Constitutional: no apparent distress Ears, Nose, Mouth, Throat: moist mucous membranes Cardiovascular: regular rate and rhythym Respiratory: no respiratory distress Gastrointestinal: normoactive bowel sounds Genitourinary: no bladder fullness Skin: erythema Musculoskeletal: No asymmetric calves Neurologic: No AAOx3 Psychiatric: No agitated Lymph, Heme, Immunologic: no cervical LAD ICD10 Worksheet Patient Problems: Problems Problem Status Onset Sepsis Acute
--- NOTE | 2017-09-30 14:53 | PDINTPN ---
Educational Assistant Teacher Progress Note Assessment/Plan: Assessment: Sepsis: Group A Strep in blood. Likely due to phipps wounds/cellulitis. On PCN/ linezolid. CT 09/28 negative for myositis/fasciitis Tachycardia: Sinus. Improved with fluid resuscitation, now down to 110. Metabolic acidosis: NAG and anion gap (elevated lactate). Persists Hypoglycemia: NOrmalized. On TFs. Acute respiratory failure: Gas exchange fairly good, still needing support due to weakness and inability to protect airway. Plan: Continue mechanical ventilation. Antibiotics per ID. Follow clinically for signs of further sepsis. Prognosis remains guarded. Discussed with sister. Recheck Lactate 09/30/17 14:55 Subjective: Intubated, sedated. Not answering questions or following commands. Objective: Vital Signs Temp Pulse Resp BP Pulse Ox 36.9 C 110 H 25 H 119/81 H 99 09/30/17 14:00 09/30/17 14:00 09/30/17 14:00 09/30/17 14:00 09/30/17 14:00 Laboratory Results 09/30/17 11:10 09/30/17 11:10 09/29/17 09/30/17 10/01/17 05:59 05:59 05:59 Intake Total 5430 4468 Output Total 712 1100 Balance 4718 3368 PT 16.1 SEC (12.0-15.0) H 09/28/17 04:00 INR 1.27 (0.83-1.16) H 09/28/17 04:00 Physical Exam - Physical Exam General Appearance: alert, no apparent distress EENT: normal ENT inspection Neck: normal inspection Respiratory: lungs clear, normal breath sounds Cardiac/Chest: regular rate, rhythm, No edema Abdomen: normal bowel sounds, non-tender, soft Skin: other (more extensive erythematous rash both legs, now exdending up to buttocks. Increased blistering.) Extremities: normal inspection Neuro/Psych: alert, No normal mood/affect, No oriented x 3 ICD10 Worksheet Patient Problems: Problems Problem Status Onset Sepsis Acute
[2017-09-30] MEDS: fentaNYL/NACL 100 ML IV SCH (15:49)
[2017-09-30] MEDS: RIVAROXABAN 20 MG TAB TUBE SCH (17:17)
[2017-09-30] MEDS: PENICILLIN POTASSIUM IV SCH (18:08)
[2017-09-30] MEDS: D5W IV SCH (18:08)
[2017-09-30] MEDS: POTASSIUM Cl (KCl) 10 MEQ in NS 100 ML IV SCH (23:44)
[2017-10-01] MEDS: ASCORBIC ACID 1,500 MG in D5W 100 ML IV SCH ×3 (00:06→11:50)
[2017-10-01] MEDS: POTASSIUM Cl (KCl) 10 MEQ in NS 100 ML IV SCH ×2 (00:45→01:48)
[2017-10-01] MEDS: fentaNYL/NACL 100 ML IV SCH ×2 (02:16→16:53)
[2017-10-01 04:18] LABS: INR 1.86 (0.83-1.16); PROTIME(PATIENT) 21.5 SEC (12.0-15.0)
[2017-10-01] MEDS: LINEZOLID 600 MG/DEXTROSE 300 ML IV SCH ×2 (05:06→16:52)
[2017-10-01] MEDS: HYDROCORTISONE 100 MG/2 ML VIAL IVP SCH ×2 (05:35→11:53)
[2017-10-01] MEDS: FAMOTIDINE 20 MG/NACL 50 ML IV SCH ×2 (09:11→21:20)
[2017-10-01] MEDS: THIAMINE HCL 100 MG TAB TUBE SCH (09:11)
[2017-10-01] MEDS: INSULIN LISPRO 100 UNIT/ML SC SCH ×3 (09:12→18:43)
[2017-10-01] MEDS: CHLORHEXIDINE GLUCONATE 15 ML UDL PO SCH ×2 (09:12→21:21)
[2017-10-01] MEDS: PROPOFOL/EMULSION 100 ML IV SCH ×2 (10:00→21:20)
--- NOTE | 2017-10-01 10:06 | PCMIDPN ---
Assessment/Plan: Assessment: Streptococcal toxic shock syndrome. The patient with group a strep in the blood and multi organ damage. No operative needed present. She is on minimal respiratory support as well as no pressors. Currently being managed with IV penicillin G and linezolid. Repeat blood cultures remain negative. Plan: 1. Continue both IV pen G and linezolid. 2. Follow clinical course as well as CBC values. 3. Follow up on repeat blood cultures. 10/01/17 12:45 10/01/17 12:46 Subjective: Patient remains on ventilator support. No new overnight events. Objective: Penicillin G # 2 Linezolid # 2 Vital Signs Temp Pulse Resp BP Pulse Ox 37.3 C 102 H 21 H 105/61 99 10/01/17 07:00 10/01/17 08:06 10/01/17 08:06 10/01/17 07:00 10/01/17 08:06 Laboratory Results 10/01/17 03:55 10/01/17 03:55 09/30/17 10/01/17 10/02/17 05:59 05:59 05:59 Intake Total 4468 5016 Output Total 1100 2150 Balance 7245 1716 - Physical Exam General Appearance: WD/WN, no apparent distress, obese, other (Intubated and sedated) Respiratory: lungs clear, normal breath sounds Cardiac/Chest: regular rate, rhythm, No tachycardia (Borderline) Extremities: non-tender, erythema, No normal inspection Skin: normal color, warm/dry, rash, erythema ICD10 Worksheet Patient Problems: Problems Problem Status Onset Sepsis Acute
[2017-10-01] MEDS ORDERED: CALCIUM GLUCONATE 50 ML IV ONE (10:20)
--- NOTE | 2017-10-01 11:14 | PDINTPN ---
Line Pilot Progress Note Assessment/Plan: Assessment: Sepsis: Group A Strep in blood. Likely due to phipps wounds/cellulitis. On PCN/ linezolid. CT 09/28 negative for myositis/fasciitis Tachycardia: Sinus. Improved with fluid resuscitation, now down to 102. Metabolic acidosis: NAG and anion gap (elevated lactate). Persists but improved Hypoglycemia: Normalized. On TFs. Acute respiratory failure: Gas exchange fairly good, still needing support due to weakness and inability to protect airway. LINETTE: Non-oliguric. Cr trending down, almost normal Plan: Continue mechanical ventilation. Antibiotics per ID. Follow clinically for signs of further sepsis. Prognosis remains guarded. Discussed with sister. Will decrease sedation. Slow down on fluid resuscitation (I+O positive 22 liters since admission). Recheck ABG, CXR. 10/01/17 11:19 Subjective: Intubated, sedated Objective: Vital Signs Temp Pulse Resp BP Pulse Ox 37.3 C 102 H 21 H 105/61 99 10/01/17 07:00 10/01/17 08:06 10/01/17 08:06 10/01/17 07:00 10/01/17 08:06 Laboratory Results 10/01/17 03:55 10/01/17 03:55 09/30/17 10/01/17 10/02/17 05:59 05:59 05:59 Intake Total 4468 5016 Output Total 1100 2150 Balance 3368 2866 PT 21.5 SEC (12.0-15.0) H 10/01/17 03:55 INR 1.86 (0.83-1.16) H 10/01/17 03:55 Laboratory Tests 09/30/17 04:50 pCO2 32 L pO2 112 H Total CO2 15 L ABG pH 7.27 L ABG HCO3 14 L ABG Lactic Acid 2.0 H O2 Concentration % 40 Actual Respiration Rate 24 Tidal Volume 500 Physical Exam - Physical Exam General Appearance: No alert EENT: normal ENT inspection Neck: normal inspection Respiratory: lungs clear, normal breath sounds Cardiac/Chest: regular rate, rhythm, edema (1+) Abdomen: normal bowel sounds, non-tender, soft Skin: other (stable/improved erythematous rash on bilateral LEs) Extremities: normal inspection Neuro/Psych: alert, normal mood/affect, oriented x 3 ICD10 Worksheet Patient Problems: Problems Problem Status Onset Sepsis Acute
[2017-10-01] MEDS ORDERED: CALCIUM GLUCONATE 1 GM in D5W 50 ML IV ONE (12:30)
--- NOTE | 2017-10-01 12:34 | HOSPPROG ---
Hospitalist Progress Note Assessment/Plan: # Septic shock-(tachycardia, fever, leukocytosis and hypotension)- 2/2 strep bacteremia from skin infection/toxic shock Patient remains hypotensive requiring pressor support - WBC up to 28 Oxygen saturations 100% on 40% FiO2 - pressors weaned - blood pressures maintained overnight - continue IV antibiotics - completing IV steroids - cont supportive care # Streptococcus bacteremia/toxic shock- skin discoloration appears stable overnight CT lower extremity (personally reviewed and interpreted) findings consistent with likely osteomyelitis no abscesses appreciated - continue IV penicillin G and linezolid per Infectious Disease # tachycardia- also improved overnight -telemetry (personally reviewed and interpreted) sinus 90-100's (down from 120s) - continue supportive care - continue full-dose anticoagulation # severe hypoglycemia- resolved - monitor closely # non-gap metabolic acidosis- bicarb up from 13 to 18 - continue aggressive care and ventilator support # severe thrombocytopenia-platelets stable in the 60 up to 80s - transitioned off heparin drip to home Xarelto per tube # chronic narcotic dependency- patient using methadone as outpatient- cont fentanyl gtt for sedation # history of pulmonary embolism on outpatient Xarelto # prophylaxis- Xarelto # diet NPO- start tube feeds # disposition> 2MN as remains critically ill requiring high level critical care support I have discussed the case with Dr. Rodriguez- will hold course today decreasing IVF as very volume up. Subjective: no events overnight Objective: Vital Signs Temp Pulse Resp BP Pulse Ox 36.9 C 102 H 24 H 110/63 98 10/01/17 11:57 10/01/17 11:57 10/01/17 11:57 10/01/17 11:57 10/01/17 11:57 Laboratory Results 10/01/17 03:55 10/01/17 03:55 09/30/17 10/01/17 10/02/17 05:59 05:59 05:59 Intake Total 4468 5016 Output Total 1100 2150 Balance 3368 2866 PT 21.5 SEC (12.0-15.0) H 10/01/17 03:55 INR 1.86 (0.83-1.16) H 10/01/17 03:55 - Physical Exam Constitutional: chronically ill appearing Eyes: anicteric sclera Ears, Nose, Mouth, Throat: dry mucous membranes Cardiovascular: regular rate and rhythym Respiratory: no respiratory distress Gastrointestinal: normoactive bowel sounds Genitourinary: no bladder fullness Skin: erythema (appears stable) Musculoskeletal: No asymmetric calves Neurologic: No AAOx3 Psychiatric: other (sedated) Lymph, Heme, Immunologic: no cervical LAD ICD10 Worksheet Patient Problems: Problems Problem Status Onset Sepsis Acute
--- NOTE | 2017-10-01 14:01 | ASMTCMCOM ---
CM Note CM Note Notes: Spoke with John, spiritual care, regarding patient and her sister Emma. Requested John check on her sister Emma to see if she is interested in a family meeting early next week. John left a message for Emma. CM will follow. Date Signed: 10/01/2017 02:00 PM Electronically Signed By:Eugenia Larkin LCSW
[2017-10-01] MEDS: D5W IV SCH (14:11)
[2017-10-01] MEDS: PENICILLIN POTASSIUM IV SCH (14:11)
--- NOTE | 2017-10-01 16:25 | WOCRNPDOC ---
ANALISACRN Advanced Assessment Note - Skin Integrity Problem, Advanced Assess Left Lower Leg Venous Stasis Ulcer Dressing Type: Mepilex (sacral dressing) Dressing Description: Clean/Dry, Intact Exudate Amount: Scant Exudate Color: Reddish/Yellow Exudate Characteristic(s): Serosanguinous Integumentary Issue Intervention: Visualized Under Dressing Va Wound Tissue: Erythema (marked), Swollen, Hemosiderin Staining, Shiny, Painful/Tender Va Wound Swelling: Moderate Wound Bed Color: Red, Yellow Wound Bed Constitution: Red/[place] - Non Granular Tissue (40%), Adhered Slough (60 %) Site Odor: None Skin Integrity Problem Comment: Venous stasis ulcer w/ adhered slough (60%) and non-granular tissue (40%). Minimal exudate noted on dressing during assessment. Periwound skin is also taut and hairless; query some degree of arterial insufficiency as well. Current dressings working well, though may have to transition to superabsorbent if it becomes increasingly exudative. Right Lower Leg Venous Stasis Ulcer Dressing Type: Mepilex (sacral) Dressing Description: Clean/Dry, Intact Exudate Amount: Scant Exudate Color: Yellow Exudate Characteristic(s): Serous Integumentary Issue Intervention: Visualized Under Dressing Va Wound Tissue: Erythema, Swollen, Hemosiderin Staining, Shiny, Painful/ Tender Va Wound Swelling: Moderate Wound Bed Color: Yellow Wound Bed Constitution: Adhered Slough Skin Integrity Problem Comment: Wound w/ punched out appearance noted on anterior RLE, 100% adhered slough. Moist desquamation periwound, current dressing managing moisture. Periwound skin changes consistent w/ venous insufficiency, but wound appearance suggests there may be a component of arterial insufficiency. Will continue w/ current dressing orders. Left Hip Blister Dressing Type: Allevyn Life Exudate Amount: Minimal Exudate Color: Reddish/Yellow Exudate Characteristic(s): Serosanguinous Integumentary Issue Intervention: Visualized Under Dressing Va Wound Tissue: Weeping Va Wound Swelling: Mild Wound Bed Color: Red Wound Bed Constitution: Red/[place] - Non Granular Tissue, De-roofed Serous Blister Site Odor: None Skin Integrity Problem Comment: De-roofed blister w/ partial-thickness tissue loss and smooth, non-granular tissue apparent. Intact serous blisters noted periwound, varying in size from 0.5cm to 1cm in diameter. No significant swelling or erythema. Continue w/ existing dressing. Left Medial Thigh Blister Dressing Type: Other Other Dressing Type: BSN medical Sorbact dressing Exudate Amount: None Integumentary Issue Intervention: Visualized Under Dressing Va Wound Tissue: Blanching, Erythema, Swollen Va Wound Swelling: Mild Wound Bed Constitution: Intact Serous Filled Blister Skin Integrity Problem Comment: Blister on inner L thigh remains intact; site currently covered w/ dressing to protect against friction. No significant periwound swelling or erythema. Continue w/ plan of care. Right Anterior Lower Proximal Leg Blister Dressing Type: Allevyn Life Dressing Description: Saturated Exudate Amount: Moderate Exudate Color: Reddish/Yellow Exudate Characteristic(s): Serosanguinous Integumentary Issue Intervention: Dressing Changed Va Wound Tissue: Ecchymotic, Erythema, Swollen Va Wound Swelling: Mild Wound Bed Color: Red Wound Bed Constitution: Red/[place] - Non Granular Tissue Site Odor: None Skin Integrity Problem Comment: Wound w/ partial-thickness tissue loss, moist desquamation throughout. Red, non-granulating tissue w/ no necrosis. Applied another Allevyn to manage exudate.
[2017-10-01] MEDS: RIVAROXABAN 20 MG TAB TUBE SCH (16:57)
[2017-10-02] MEDS: LINEZOLID 600 MG/DEXTROSE 300 ML IV SCH ×2 (04:05→16:55)
[2017-10-02] MEDS: PROPOFOL/EMULSION 100 ML IV SCH ×3 (04:05→16:40)
--- NOTE | 2017-10-02 08:52 | HOSPPROG ---
Hospitalist Progress Note Assessment/Plan: # Septic shock-(tachycardia, fever, leukocytosis and hypotension)- 2/2 strep bacteremia from skin infection/toxic shock. 40% FiO2. Off pressors. - continue IV antibiotics - completed IV Hydrocortisone - cont supportive care, will likely require diuresis, wt up 16 kg # Streptococcus bacteremia/toxic shock- erythema persists CT lower extremity (personally reviewed and interpreted)- poss osteomyelitis no abscesses appreciated - continue IV penicillin G and linezolid per ID # tachycardia- also improved overnight -telemetry (personally reviewed and interpreted) sinus 90-100's (down from 120s) - continue supportive care - continue full-dose anticoagulation # acute Leukocytosis - corresponds with timing of IV steroids which the 4 day course completed yesterday, wbc's up to 33K this am - cont to follow # severe hypoglycemia- resolved - monitor closely # non-gap metabolic acidosis- bicarb up from 13 to 19, though pH 7.18 this am - continue aggressive care and ventilator support, discussed with pulm, adjust vent vs ?NaHCO3 # severe thrombocytopenia-platelets now >100 - transitioned off heparin drip to home Xarelto per tube # acute diarrhea - rectal tube in place, send c diff # chronic narcotic dependency- patient using methadone as outpatient- cont fentanyl gtt for sedation # history of pulmonary embolism on outpatient Xarelto # prophylaxis- Xarelto # diet - tube feeds # disposition> 2MN as remains critically ill requiring high level critical care support. Palliative care consult requested for [facility] to address goals of care. I have discussed the case with Dr. Rodriguez, care team Subjective: Pt sedated, ventilated. bloody sputum noted on suction from ET tube. No fevers. Objective: Vital Signs Temp Pulse Resp BP Pulse Ox 37 C 100 19 127/82 H 97 10/02/17 07:00 10/02/17 07:00 10/02/17 07:00 10/02/17 07:00 10/02/17 07:00 Laboratory Results 10/02/17 04:15 10/02/17 04:15 10/01/17 10/02/17 10/03/17 05:59 05:59 05:59 Intake Total 5016 4177 Output Total 2150 2400 Balance 2866 1777 PT 21.5 SEC (12.0-15.0) H 10/01/17 03:55 INR 1.86 (0.83-1.16) H 10/01/17 03:55 - Physical Exam Constitutional: chronically ill appearing Eyes: PERRL Ears, Nose, Mouth, Throat: moist mucous membranes Cardiovascular: regular rate and rhythym Respiratory: no respiratory distress, reduced air movement Gastrointestinal: normoactive bowel sounds, soft, non-tender abdomen Skin: other (erythema of b/l LE's and RUE with well demarcated margin, not spreading) ICD10 Worksheet Patient Problems: Problems Problem Status Onset Sepsis Acute
--- NOTE | 2017-10-02 08:58 | SOAPPROG ---
SOAP Progress Note Assessment/Plan: Assessment/Plan: -56yo F critically ill 2/2 strep bacteremia, MOF, cellulitis - off pressors, has been HDS for some time now - still remains vent dependent. Sedation weaned this AM for CPAP trial which was unsuccessful. Cont to wean as tolerated - cellulitis on BLE, RUE appears stable from report as this is my first encounter with the patient. No crepitus, some slough but not progressing. - WBC up to 33k today, I still clinically dont appreciate anything suspicious for abscess vs nec fasc - I dont see anything clincally today which I feel needs debridement. Will cont to follow 10/02/17 08:54 10/02/17 08:58 Subjective: intubated, sedated. Objective: Vital Signs Temp Pulse Resp BP Pulse Ox 37 C 100 19 127/82 H 97 10/02/17 07:00 10/02/17 07:00 10/02/17 07:00 10/02/17 07:00 10/02/17 07:00 Laboratory Results 10/02/17 04:15 10/02/17 04:15 10/01/17 10/02/17 10/03/17 05:59 05:59 05:59 Intake Total 5016 4177 Output Total 2150 2400 Balance 2866 1777 PT 21.5 SEC (12.0-15.0) H 10/01/17 03:55 INR 1.86 (0.83-1.16) H 10/01/17 03:55 ICD10 Worksheet Patient Problems: Problems Problem Status Onset Sepsis Acute
[2017-10-02] MEDS: INSULIN LISPRO 100 UNIT/ML SC SCH ×3 (09:02→18:43)
[2017-10-02] MEDS: CHLORHEXIDINE GLUCONATE 15 ML UDL PO SCH ×2 (09:15→20:22)
[2017-10-02] MEDS: FAMOTIDINE 20 MG/NACL 50 ML IV SCH ×2 (09:21→20:22)
[2017-10-02] MEDS: PENICILLIN POTASSIUM IV SCH (10:30)
[2017-10-02] MEDS: D5W IV SCH (10:30)
--- NOTE | 2017-10-02 11:22 | PDINTPN ---
Experimental Worker Progress Note Assessment/Plan: Assessment: Sepsis: Group A Strep in blood. Likely due to phipps wounds/cellulitis. On PCN/ linezolid. CT 09/28 negative for myositis/fasciitis Tachycardia: Sinus. Improved with fluid resuscitation, now stable low 100s Metabolic acidosis: NAG and anion gap (elevated lactate). Persists but improved Hypoglycemia: Normalized. On TFs. Acute respiratory failure: Gas exchange fairly good, still needing support due to weakness and inability to protect airway. Became acidotic with CPAP. LINETTE: Non-oliguric. Cr now normalized. Plan: Continue mechanical ventilation. Antibiotics per ID. Follow clinically for signs of further sepsis. Prognosis remains guarded. Will decrease sedation. Start Lasix. 10/02/17 11:24 10/02/17 11:27 Subjective: Intubated, sedated Objective: Vital Signs Temp Pulse Resp BP Pulse Ox 37.2 C 110 H 18 125/74 H 100 10/02/17 10:00 10/02/17 10:54 10/02/17 10:54 10/02/17 10:00 10/02/17 10:54 Laboratory Results 10/02/17 04:15 10/02/17 04:15 10/01/17 10/02/17 10/03/17 05:59 05:59 05:59 Intake Total 5016 4177 Output Total 2150 2400 Balance 2866 1777 PT 21.5 SEC (12.0-15.0) H 10/01/17 03:55 INR 1.86 (0.83-1.16) H 10/01/17 03:55 Laboratory Tests 10/02/17 05:00 pCO2 49 H pO2 86 H Total CO2 19 L ABG pH 7.18 L* ABG HCO3 17 L O2 Concentration % 40 Actual Respiration Rate 18 End Tidal CO2 54 Pressure Support 10 CPAP YES CXR: Increased right effusion/infiltrate. Images reviewed by me. Physical Exam - Physical Exam General Appearance: other (eyes open, not following commands.) EENT: normal ENT inspection Neck: normal inspection Respiratory: normal breath sounds Cardiac/Chest: regular rate, rhythm, edema (1+) Abdomen: normal bowel sounds, non-tender, soft Skin: other (erythematous rash on legs stable. More extensive on RUE.) Extremities: normal inspection Neuro/Psych: No alert (eyes open, not following commands), No oriented x 3 ICD10 Worksheet Patient Problems: Problems Problem Status Onset Sepsis Acute
[2017-10-02] MEDS ORDERED: FUROSEMIDE 20 MG/2 ML VIAL IVP ONE (11:28)
--- NOTE | 2017-10-02 16:29 | PCMIDPN ---
Assessment/Plan: Assessment/Plan: 1. Sepsis/ Group A strep bacteremia toxic shock/LLE cellulitis and wounds: -f/u blood cx ngtd -Now on PCN and linezolid -Surgery following, appreciate -stable erythema so far -off steroids since yesterday -wbc continues to climb. likely multifactorial -care coordinated with unloading checker, hospitalist, RN -discussed and updated sister at bedside. -Prognosis guarded. 2. Leukocytosis: - likely multifactorial given current infection, steroids etc. OFf steroids since 10/01/17 - continue to follow labs. 3. Vanco, ceftraixone allergy: - reaction unknown Meds PCN 09/29/17 linezolid 09/29/17 s/p dapto, merem invanz 1g daily- 09/27/17-09/29/17 clinda 600mg q8- 09/27/17-09/29/17 Subjective: afebrile. on fio2 40%. did not tolerate trial off vent. of pressors. sister at bedside. Discussed updates from RN and unloading checker. Stable erythema with no new extension. blisters stable. edema present. off steroids since yesterday. Objective: Vital Signs Temp Pulse Resp BP Pulse Ox 37.1 C 102 H 19 117/73 100 10/02/17 15:00 10/02/17 15:00 10/02/17 15:00 10/02/17 15:00 10/02/17 15:00 Laboratory Results 10/02/17 04:15 10/02/17 04:15 10/01/17 10/02/17 10/03/17 05:59 05:59 05:59 Intake Total 5016 4177 Output Total 2150 2400 Balance 2866 1777 - Physical Exam General Appearance: other (intubated, sedated. occasionally opens eyes.) EENT: ET Tube Respiratory: coarse breath sounds Cardiac/Chest: regular rate, rhythm Extremities: swelling Abdomen: normal bowel sounds, non-tender, soft, No distended Skin: erythema (erythema involving left thigh, right arm noted that are mostly within demarcated area. area on thigh is stable now but new since wednesday for me. ) - Time Spent With Patient Time Spent with Patient: greater than 35 minutes Time Spent with Patient: Greater than 35 minutes spent on this patients care, greater than 50% of time spent counseling, educating, and coordinating care regarding the above mentioned plan. ICD10 Worksheet Patient Problems: Problems Problem Status Onset Sepsis Acute
[2017-10-02] MEDS: FUROSEMIDE 20 MG/2 ML VIAL IVP SCH (16:40)
[2017-10-02] MEDS: RIVAROXABAN 20 MG TAB TUBE SCH (18:46)
[2017-10-03] MEDS: PROPOFOL/EMULSION 100 ML IV SCH ×5 (04:30→20:00)
[2017-10-03] MEDS: LINEZOLID 600 MG/DEXTROSE 300 ML IV SCH ×2 (04:30→16:47)
[2017-10-03] MEDS: PENICILLIN POTASSIUM IV SCH (06:00)
[2017-10-03] MEDS: D5W IV SCH (06:00)
[2017-10-03 08:07] LABS: PLATELET COUNT 169 10^3/uL (150-400)
--- NOTE | 2017-10-03 08:30 | PCMIDPN ---
Assessment/Plan: Assessment/Plan: 1. Sepsis/ Group A strep bacteremia toxic shock/LLE cellulitis and wounds: -f/u blood cx ngtd -On PCN and linezolid -Surgery following, appreciate -stable erythema so far -off steroids since 10/01/17 -wbc improved today. -care coordinated with RN -Prognosis guarded. 2. Leukocytosis: - likely multifactorial given current infection, , steroids etc. NOw off steroids - continue to follow labs. 3. Vanco, ceftraixone allergy: - reaction unknown Meds PCN 09/29/17 linezolid 09/29/17 s/p dapto, merem invanz 1g daily- 09/27/17-09/29/17 clinda 600mg q8- 09/27/17-09/29/17 Subjective: Remains in icu. intubated, sedated. fio2 40%. tachycardic. Discussed with Rn , no overnight events. Objective: Vital Signs Temp Pulse Resp BP Pulse Ox 37.5 C 128 H 19 125/71 H 95 10/03/17 08:05 10/03/17 08:05 10/03/17 08:05 10/03/17 07:00 10/03/17 08:05 Microbiology 09/28/17 04:18 Blood Culture - Final Blood 09/28/17 04:00 Blood Culture - Final Blood Laboratory Results 10/03/17 07:50 10/02/17 10/03/17 10/04/17 05:59 05:59 05:59 Intake Total 4177 2613.1 Output Total 2400 4375 Balance 1777 -1761.9 - Physical Exam General Appearance: other (intubated, sedated in icu) EENT: ET Tube Respiratory: coarse breath sounds (b/l) Cardiac/Chest: tachycardia Extremities: swelling (edema of extremities. ) Abdomen: normal bowel sounds, non-tender, soft, other (obese) Pelvic Exam: calhoun, other (rectal calhoun) Skin: erythema (LLE less red today and some retraction from demarcated lines. RLE with mild erythema stable with some retraction. RUE with erythema outside demarcated lines noted from yesterday,new line drawn, and not outside of that line. ) ICD10 Worksheet Patient Problems: Problems Problem Status Onset Sepsis Acute
[2017-10-03] MEDS ORDERED: MAGNESIUM SULF 1 GM/DEXTROSE 100 ML IV ONE (09:15)
[2017-10-03] MEDS: FUROSEMIDE 20 MG/2 ML VIAL IVP SCH (09:24)
[2017-10-03] MEDS: CHLORHEXIDINE GLUCONATE 15 ML UDL PO SCH ×2 (09:24→21:01)
[2017-10-03] MEDS: FAMOTIDINE 20 MG/NACL 50 ML IV SCH (09:24)
[2017-10-03] MEDS: INSULIN LISPRO 100 UNIT/ML SC SCH ×3 (09:24→18:09)
[2017-10-03] MEDS ORDERED: FUROSEMIDE 20 MG/2 ML VIAL IVP SCH (10:57)
--- NOTE | 2017-10-03 11:04 | PDINTPN ---
Etl Application Developer Progress Note Assessment/Plan: Assessment: Sepsis: TSS from Group A Strep in blood. Likely due to phipps wounds/cellulitis. On PCN/linezolid. CT 09/28 negative for myositis/fasciitis. Cellulitis looks similar in extent today, less red/inflamed. Tachycardia: Sinus. Improved with fluid resuscitation, was stable low 100s, now 120s despite CVP 8. Didn't respond to increased Propofol/Fentanyl. Metabolic acidosis: NAG and anion gap (elevated lactate). Persists but improved Hypoglycemia: Normalized. On TFs. Acute respiratory failure: Gas exchange fairly good, still needing support due to weakness and inability to protect airway. Became acidotic with CPAP 10/01, tachypneic and EtCO2 josh with CPAP 10/03. Likely a component of fluid overload, was 22 liters positive, started to diurese 10/02. LINETTE: Non-oliguric. Cr now normalized, good response to diuresis. 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 Plan: Continue mechanical ventilation. Antibiotics per ID. Follow clinically for signs of further sepsis. Prognosis remains guarded. Will try to decrease sedation. Increase Lasix, give a few doses of albumin. Palliative care consult for 10/04. If full support is to be continued and respiratory status not improving in the next few days, consider trach. 10/03/17 11:04 Subjective: Intubated, sedated Objective: Vital Signs Temp Pulse Resp BP Pulse Ox 37.8 C 132 H 27 H 116/67 95 10/03/17 10:00 10/03/17 10:00 10/03/17 10:00 10/03/17 10:00 10/03/17 10:00 Microbiology 09/28/17 04:18 Blood Culture - Final Blood 09/28/17 04:00 Blood Culture - Final Blood Laboratory Results 10/03/17 07:50 10/03/17 07:50 10/02/17 10/03/17 10/04/17 05:59 05:59 05:59 Intake Total 4177 2613.1 Output Total 2400 4375 Balance 1777 -1761.9 PT 21.5 SEC (12.0-15.0) H 10/01/17 03:55 INR 1.86 (0.83-1.16) H 10/01/17 03:55 Physical Exam - Physical Exam General Appearance: unresponsive EENT: normal ENT inspection Neck: full range of motion, normal inspection Respiratory: lungs clear, normal breath sounds Cardiac/Chest: regular rate, rhythm, No edema Abdomen: normal bowel sounds, non-tender Skin: normal color, warm/dry Extremities: normal inspection Neuro/Psych: No normal mood/affect, No oriented x 3 ICD10 Worksheet Patient Problems: Problems Problem Status Onset Sepsis Acute
[2017-10-03] MEDS: ACETAMINOPHEN 650 MG/20.3 ML UDCUP TUBE PRN (11:05)
--- NOTE | 2017-10-03 11:06 | SOAPPROG ---
SOAP Progress Note Assessment/Plan: Assessment/Plan: -56yo F critically ill 2/2 strep bacteremia, MOF, cellulitis - off pressors, has been HDS for some time now - vent dependence persists, cont to wean as tolerates - cellulitis is the same on RLE, LLE appears better than previous. No crepitus, some slough but more 2/2 edema and less 2/2 Nec process - Overall I feel that her cellulitis is improved from yesterday, I dont appreciate anything surgical at this time. 10/02/17 08:54 10/02/17 08:58 10/03/17 11:04 Subjective: intubated and sedated Objective: Vital Signs Temp Pulse Resp BP Pulse Ox 37.8 C 132 H 27 H 116/67 95 10/03/17 10:00 10/03/17 10:00 10/03/17 10:00 10/03/17 10:00 10/03/17 10:00 Microbiology 09/28/17 04:18 Blood Culture - Final Blood 09/28/17 04:00 Blood Culture - Final Blood Laboratory Results 10/03/17 07:50 10/03/17 07:50 10/02/17 10/03/17 10/04/17 05:59 05:59 05:59 Intake Total 4177 2613.1 Output Total 2400 4375 Balance 1777 -1761.9 PT 21.5 SEC (12.0-15.0) H 10/01/17 03:55 INR 1.86 (0.83-1.16) H 10/01/17 03:55 ICD10 Worksheet Patient Problems: Problems Problem Status Onset Sepsis Acute
[2017-10-03] MEDS: ALBUMIN 25% 100 ML IV SCH ×2 (12:02→18:16)
--- NOTE | 2017-10-03 12:20 | HOSPPROG ---
Hospitalist Progress Note Assessment/Plan: # AHRF - remains intubated, mechanically ventilated, sedated on propofol, fentanyl. 40% FiO2, failed weaning trial this am. - consider trach if ongoing mechanical ventilation required, now ~1 week on vent # Septic shock-(tachycardia, fever, leukocytosis and hypotension)- 2/2 strep bacteremia from skin infection/toxic shock. 40% FiO2. Off pressors. - continue IV PCN, Zyvox - s/p IV Hydrocortisone # Volume overload - 20L net positive, now diuresing effectively. Echo: + diastolic dysfunction, EF 50% - cont IV lasix/albumin # Streptococcus bacteremia/toxic shock- erythema persists - Source is LE wounds. CT lower extremity (personally reviewed and interpreted)- poss osteomyelitis no abscesses appreciated - continue IV penicillin G and linezolid per ID # tachycardia- HR back up to 130's, query heart strain from volume overload / pulmonary edema - albumin / lasix - continue anticoagulation # acute Leukocytosis - corresponds with timing of IV steroids which the 4 day course completed yesterday, wbc's up to 33K yest, down to 23K today - cont to follow on current atbx regimen # severe hypoglycemia- resolved - monitor closely # non-gap metabolic acidosis- resolved with adjustment of vent settings - continue ventilator support # severe thrombocytopenia-platelets now >100 - transitioned off heparin drip to home Xarelto per tube # acute diarrhea - rectal tube in place, c diff neg # chronic narcotic dependency- patient using methadone as outpatient- cont fentanyl gtt for sedation # history of pulmonary embolism on outpatient Xarelto # prophylaxis- Xarelto # diet - tube feeds # disposition> 2MN as remains critically ill requiring high level critical care support. Palliative care consult requested for [facility] to address goals of care. I have discussed the case with Dr. Rodriguez, care team Subjective: Pt ventilated, sedated. Objective: Vital Signs Temp Pulse Resp BP Pulse Ox 38.0 C 128 H 22 H 115/63 98 10/03/17 11:51 10/03/17 11:51 10/03/17 11:51 10/03/17 11:00 10/03/17 11:51 Microbiology 09/28/17 04:18 Blood Culture - Final Blood 09/28/17 04:00 Blood Culture - Final Blood Laboratory Results 10/03/17 07:50 10/03/17 07:50 10/02/17 10/03/17 10/04/17 05:59 05:59 05:59 Intake Total 4177 2613.1 Output Total 2400 4375 Balance 1777 -1761.9 PT 21.5 SEC (12.0-15.0) H 10/01/17 03:55 INR 1.86 (0.83-1.16) H 10/01/17 03:55 - Physical Exam Constitutional: no apparent distress Eyes: PERRL Ears, Nose, Mouth, Throat: moist mucous membranes Cardiovascular: regular rate and rhythym Respiratory: no respiratory distress, reduced air movement Gastrointestinal: normoactive bowel sounds, soft, non-tender abdomen Skin: other (extremities with persistent erythema, which seems a bit improved today) Neurologic: other (sedated ) ICD10 Worksheet Patient Problems: Problems Problem Status Onset Sepsis Acute
[2017-10-03] MEDS: FUROSEMIDE 40 MG/4 ML VIAL IVP SCH (15:25)
[2017-10-03] MEDS: RIVAROXABAN 20 MG TAB TUBE SCH (16:47)
[2017-10-03] MEDS: fentaNYL/NACL 100 ML IV SCH (18:13)
[2017-10-03] MEDS: FAMOTIDINE 20 MG TAB TUBE SCH (21:01)
[2017-10-04] MEDS: ALBUMIN 25% 100 ML IV SCH ×2 (00:22→06:05)
[2017-10-04] MEDS: D5W IV SCH ×2 (02:27→21:59)
[2017-10-04] MEDS: PENICILLIN POTASSIUM IV SCH ×2 (02:27→21:59)
[2017-10-04 04:57] LABS: PLATELET COUNT 176 10^3/uL (150-400)
[2017-10-04] MEDS: PROPOFOL/EMULSION 100 ML IV SCH ×5 (06:04→21:28)
[2017-10-04] MEDS: LINEZOLID 600 MG/DEXTROSE 300 ML IV SCH ×2 (06:05→16:52)
[2017-10-04] MEDS: ACETAMINOPHEN 650 MG/20.3 ML UDCUP TUBE PRN ×2 (06:07→15:26)
[2017-10-04] MEDS ORDERED: ALTEPLASE 2 MG VIAL ONE (06:09)
[2017-10-04] MEDS ORDERED: ALTEPLASE 2 MG VIAL IVP ONE (06:45)
[2017-10-04] MEDS ORDERED: MAGNESIUM SULF 1 GM/DEXTROSE 100 ML IV ONE (07:50)
[2017-10-04] MEDS: INSULIN LISPRO 100 UNIT/ML SC SCH ×3 (07:51→18:15)
[2017-10-04] MEDS: CHLORHEXIDINE GLUCONATE 15 ML UDL PO SCH ×2 (07:51→21:28)
[2017-10-04] MEDS: FUROSEMIDE 40 MG/4 ML VIAL IVP SCH ×2 (08:15→14:11)
[2017-10-04] MEDS: FAMOTIDINE 20 MG TAB TUBE SCH ×2 (08:15→21:28)
--- NOTE | 2017-10-04 08:54 | PCMIDPN ---
Assessment/Plan: Assessment/Plan: * Septic shock/toxic shock syndrome due to group A strep bacteremia from left lower extremity cellulitis associated with open wound: Still with extensive cellulitis although erythema less intense in quality. Remains off pressors. Leukocytosis is gradually decreasing. Continue penicillin and linezolid with goal of discontinuing linezolid after doses tomorrow. * Anemia: Likely multifactorial. Keep in mind that linezolid can at times be associated with pure red cell aplasia. Hope to discontinue soon as outlined above. * Fever: Low-grade temperature over last 24 hr. Will continue to monitor. 10/04/17 08:51 10/04/17 08:56 Subjective: Remains off pressors. Remains intubated. Objective: Vital Signs Temp Pulse Resp BP Pulse Ox 38.1 C 118 H 20 102/56 L 100 10/04/17 08:00 10/04/17 08:00 10/04/17 08:00 10/04/17 08:00 10/04/17 08:00 Microbiology 09/28/17 04:18 Blood Culture - Final Blood 09/28/17 04:00 Blood Culture - Final Blood Laboratory Results 10/04/17 04:45 10/04/17 04:45 10/03/17 10/04/17 10/05/17 05:59 05:59 05:59 Intake Total 2613.1 3317 Output Total 4375 5500 Balance -1761.9 -2183 Penicillin # 6 Linezolid # 6 Tm 38.1 - Physical Exam General Appearance: other (Intubated) EENT: ET Tube, No scleral icterus Respiratory: coarse breath sounds Cardiac/Chest: tachycardia Extremities: inflammation (Similar distribution of erythema but overall less intense; scattered blistering continues over lower extremities in right upper extremity) Abdomen: non-tender, No distended Skin: other (Right IJ triple-lumen catheter without erythema), No embolic lesions ICD10 Worksheet Patient Problems: Problems Problem Status Onset Sepsis Acute
[2017-10-04] MEDS: fentaNYL/NACL 100 ML IV SCH (12:52)
--- NOTE | 2017-10-04 14:04 | HOSPPROG ---
Hospitalist Progress Note Assessment/Plan: # AHRF - remains intubated, mechanically ventilated, sedated on propofol, fentanyl. 50% FiO2, failed weaning trial yesterday. - consider trach if ongoing mechanical ventilation required, now ~1 week on vent # Septic shock -(tachycardia, fever, leukocytosis and hypotension) - 2/2 GAS bacteremia/toxic shock from LE wounds. Off pressors. - CT lower extremity - poss osteomyelitis no abscesses - continue IV PCN, Zyvox (per ID, d/c latter after tomorrow) - s/p IV Hydrocortisone # Volume overload - 20L net positive, now diuresing effectively. Echo: + diastolic dysfunction, EF 50% - cont IV lasix/albumin # tachycardia- HR back up to 130's, query heart strain from volume overload / pulmonary edema - albumin / lasix - continue anticoagulation # acute Leukocytosis - corresponds with timing of IV steroids which the 4 day course completed yesterday, wbc's 33K -> 19K today - cont to follow on current atbx regimen # anemia - microcytic, hgb trending down. No e/o bleeding. Per ID, Zyvox can be associated with a red blood cell dysplasia and this med will stop tomorrow. - check iron studies, hemoccult - cont to trend, transfuse as indicated # severe hypoglycemia- resolved - monitor closely # non-gap metabolic acidosis- resolved with adjustment of vent settings - continue ventilator support # severe thrombocytopenia-platelets now >100 - transitioned off heparin drip to home Xarelto per tube # acute diarrhea - rectal tube in place, c diff neg # chronic narcotic dependency- patient using methadone as outpatient- cont fentanyl gtt for sedation # history of pulmonary embolism on outpatient Xarelto # prophylaxis- Xarelto # diet - tube feeds # disposition - cont inpt/ICU. Pt remains critically ill requiring high level critical care support. Palliative care consult planned for today. I have discussed the case with Dr. Helms, care team Subjective: Pt remains sedated, ventilated. Not following commands. Objective: Vital Signs Temp Pulse Resp BP Pulse Ox 38.3 C 125 H 22 H 115/65 99 10/04/17 13:00 10/04/17 13:45 10/04/17 13:45 10/04/17 13:00 10/04/17 13:45 Microbiology 09/28/17 04:18 Blood Culture - Final Blood 09/28/17 04:00 Blood Culture - Final Blood Laboratory Results 10/04/17 04:45 10/04/17 04:45 10/03/17 10/04/17 10/05/17 05:59 05:59 05:59 Intake Total 2613.1 3317 Output Total 4375 5500 1875 Balance -1761.9 -2183 -1875 PT 21.5 SEC (12.0-15.0) H 10/01/17 03:55 INR 1.86 (0.83-1.16) H 10/01/17 03:55 - Physical Exam Constitutional: no apparent distress Eyes: PERRL Ears, Nose, Mouth, Throat: moist mucous membranes Cardiovascular: regular rate and rhythym Respiratory: no respiratory distress, inspiratory crackles Gastrointestinal: normoactive bowel sounds, soft, non-tender abdomen Skin: warm, other (multiple areas of erythema on b/l LE's and RUE are slightly faded, not extending) Neurologic: other (sedated) ICD10 Worksheet Patient Problems: Problems Problem Status Onset Sepsis Acute
--- NOTE | 2017-10-04 15:33 | ASMTCMCOM ---
CM Note CM Note Notes: Order for Palliative. Unfortunately we don't have MPOA or MOST documents on patient's chart. Contacts made to the names on Mario Aggarwal's Demographic sheet: Sister-Emma and J Carlos Jose. Need a medical decision maker due to patient being on the vent. Received a call from Emma that she was on her way to [facility] and would be here this afternoon. Alerted the Palliative team. Date Signed: 10/04/2017 03:32 PM Electronically Signed By:Shayla Singh LCSW
[2017-10-04] MEDS: RIVAROXABAN 20 MG TAB TUBE SCH (16:53)
--- NOTE | 2017-10-04 16:59 | PDINTPN ---
Micro Computer Specialist Progress Note Assessment/Plan: Assessment: Sepsis: TSS from Group A Strep in blood. Likely due to phipps wounds/cellulitis. On PCN/linezolid. CT 09/28 negative for myositis/fasciitis. Cellulitis looks similar in extent today, but continues to look a little bit less erythematous. Infectious Disease following. Appreciate their help.. Tachycardia: Sinus. Improved with fluid resuscitation, 120s despite CVP 8. Didn' t respond to increased Propofol/Fentanyl. Overall stable. Metabolic acidosis: NAG and anion gap (elevated lactate). Resolved. Hypoglycemia: Normalized. On TFs. Acute respiratory failure: On 50% FiO2, still needing support due to weakness and inability to protect airway. Intubated secondary to progressive respiratory failure on 09/27. Day 7 today on ventilator. Chest x-ray consistent with atelectasis, possible infiltrates and fluid overload. She was was 22 liters positive, started to diurese 10/02, with good diuresis over the last 2 days. LINETTE: Non-oliguric. Cr now normalized, good response to diuresis. BUN remains high, but stable. 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 Anemia: Hematocrit 23. Probably dilutional as well as decreased production. No evidence of active bleeding. Will follow. Prophylaxis: On Pepcid, SCDs. DVT: On Xarelto Plan: Continue ventilatory support, antibiotics per ID. Address cor status as noted below during a palliative care conference. Follow clinically for signs of further sepsis. Prognosis remains guarded. Will try to decrease sedation. Continue Lasix Lasix, albumin as needed. If full support is to be continued and respiratory status not improving over the next 5-7 days, consider trach. Would need a PEG as well. Would address the possibility of transitioning to comfort care at that decision making time. 55 min of critical care time not including family conference with the patient's sister [id number] and [id number] by speaker phone. Discussed with respiratory, hospitalist, nursing, palliative/7th grade social studies teacher, and the ICU multi disciplinary team. Family conference/palliative care: This was with the patient's sister and her who was on speaker phone. Multiple issues discussed. Prognosis discussed: Clearly guarded but unknown at this time, based on the severity of her acute illness on top of morbid obesity and multiple comorbidities. It was decided that she should be a limited Cor 0, with no compressions or shock in the event of a cardiac arrest. We will continue mechanical ventilation for now. Further decisions will be made on a day-to-day basis. We discussed the possible need for tracheostomy and PEG tube at the end of this week or early next. The patient's sister is unclear if she would want to do this and changing to comfort care at that time was discussed. Subjective: Sedated, on the ventilator. Not responsive. Objective: Vital Signs Temp Pulse Resp BP Pulse Ox 38 C 120 H 22 H 118/65 100 10/04/17 16:00 10/04/17 16:35 10/04/17 16:35 10/04/17 16:00 10/04/17 16:35 Laboratory Results 10/04/17 04:45 10/04/17 04:45 10/03/17 10/04/17 10/05/17 05:59 05:59 05:59 Intake Total 2613.1 3317 Output Total 4375 5500 1875 Balance -1761.9 -2183 -1875 PT 21.5 SEC (12.0-15.0) H 10/01/17 03:55 INR 1.86 (0.83-1.16) H 10/01/17 03:55 Laboratory Tests 10/02/17 10/04/17 10/04/17 10:30 04:45 04:45 Calcium 8.3 L Ionized Calcium 1.16 Magnesium 1.5 L Iron TIBC Iron Saturation Total Bilirubin Conjugated Bilirubin AST ALT Albumin C. difficile Tox (PCR) NEGATIVE 10/04/17 10/04/17 04:45 04:45 Calcium Ionized Calcium Magnesium Iron 22.0 L TIBC 147 L Iron Saturation 15 L Total Bilirubin 3.0 H Conjugated Bilirubin 2.8 H AST 122 H ALT 130 H Albumin 2.5 L C. difficile Tox (PCR) Physical Exam - Physical Exam General Appearance: no apparent distress, obese, other (Sedated, on ventilator) EENT: PERRL/EOMI, ET tube, other (OG tube in place) Neck: normal inspection (Large neck) Respiratory: lungs clear (Anteriorly), decreased breath sounds (At bases), rales (Few rales at bases), No rhonchi, No wheezing Cardiac/Chest: regular rate, rhythm, tachycardia (Sinus, 120) Abdomen: non-tender (No obvious tenderness), soft (Obese), No normal bowel sounds (Decreased, present) Pelvic Exam: other (Beltran catheter in place, good urine output last 2 days.) Skin: warm/dry, pallor, rash (Cellulitis, areas marked. Please see comments per Infectious Disease for complete description) Extremities: swelling (Bilateral anasarca) Neuro/Psych: no motor/sensory deficits (Moves all extremities weakly), cognition abnormalities (Can't assess) ICD10 Worksheet Patient Problems: Problems Problem Status Onset Sepsis Acute
--- NOTE | 2017-10-04 17:23 | ASMTCMCOM ---
CM Note CM Note Notes: Medical Proxy: Sister, Emma did arrive. It was determined that Emma would be the Medical Proxy [phone]. Emma was able to discuss patient's condition with Dr. Helms and Daisy TOW MOTOR OPERATOR. Emma has made patient DNR and will be meeting with Taz from [facility] at 2:00PM. Date Signed: 10/04/2017 05:23 PM Electronically Signed By:Shayla Singh LCSW
[2017-10-05 04:28] LABS: PLATELET COUNT 171 10^3/uL (150-400)
[2017-10-05] MEDS: LINEZOLID 600 MG/DEXTROSE 300 ML IV SCH ×2 (04:39→16:07)
[2017-10-05] MEDS ORDERED: MAGNESIUM SULF 2 GM/WATER 50 ML IV ONE (05:16)
[2017-10-05] MEDS ORDERED: CALCIUM GLUCONATE 1 GM in D5W 50 ML IV ONE (06:00)
[2017-10-05] MEDS: fentaNYL/NACL 100 ML IV SCH ×2 (06:55→20:05)
[2017-10-05] MEDS ORDERED: POTASSIUM CL 10 MEQ TAB PO ONE (06:57)
[2017-10-05] MEDS ORDERED: POTASSIUM CL 20 MEQ/15 ML UDCUP TUBE ONE ×2 (07:00→22:00)
--- NOTE | 2017-10-05 08:08 | PCMIDPN ---
Assessment/Plan: Assessment/Plan: 1. Sepsis/ Group A strep bacteremia toxic shock/LLE cellulitis and wounds: -f/u blood cx ngtd -Now on PCN and linezolid. Day #7 of linezolid. will d/c after today's dosing. -Surgery following, appreciate -stable erythema so far and improving -off steroids since 10/01/17 -wbc continues to improve. likely multifactorial -care coordinated with RN -Prognosis guarded. 2. Leukocytosis: - likely multifactorial given current infection, steroids etc. OFf steroids since 10/01/17 - continue to follow labs. 3. Leg wounds -appreciate wound care eval 4. Vanco, ceftriaxone allergy: - reaction unknown Meds PCN 09/29/17 linezolid 09/29/17--#7/7 s/p dapto, merem invanz 1g daily- 09/27/17-09/29/17 clinda 600mg q8- 09/27/17-09/29/17 Subjective: Remains in icu, intubated sedated. had some temps yesterday. Better this Am so far. remains on FIO2 40%. formed stools now. rectal calhoun out. Objective: Vital Signs Temp Pulse Resp BP Pulse Ox 37.1 C 104 H 22 H 95/55 L 100 10/05/17 07:00 10/05/17 07:00 10/05/17 07:00 10/05/17 07:00 10/05/17 07:00 Laboratory Results 10/05/17 03:57 10/05/17 03:57 10/04/17 10/05/17 10/06/17 05:59 05:59 05:59 Intake Total 3317 3918 Output Total 9707 6755 Balance -0670 -8430 - Physical Exam General Appearance: other (intubated, sedated. winces with light touch or movement of extremities) EENT: ET Tube Respiratory: coarse breath sounds (mild course Bs anteriorly) Cardiac/Chest: tachycardia Extremities: swelling Abdomen: normal bowel sounds, non-tender, soft, other (obese) Pelvic Exam: calhoun, other (rectal calhoun out) Skin: No erythema (significant improvment in degree of erythema involving RUE, RLE, LLE. wounds on b/l anterior legs have purulent material. superificial. lower wounds on both legs are also superficial but not weepy.) - Line/s other Lines: drainage (right IJ) ICD10 Worksheet Patient Problems: Problems Problem Status Onset Sepsis Acute
[2017-10-05] MEDS: FAMOTIDINE 20 MG TAB TUBE SCH ×2 (08:20→20:05)
[2017-10-05] MEDS: INSULIN LISPRO 100 UNIT/ML SC SCH ×3 (08:21→17:35)
[2017-10-05] MEDS: FUROSEMIDE 40 MG/4 ML VIAL IVP SCH (08:21)
[2017-10-05] MEDS: CHLORHEXIDINE GLUCONATE 15 ML UDL PO SCH ×2 (08:58→20:05)
[2017-10-05] MEDS: PROPOFOL/EMULSION 100 ML IV SCH ×3 (08:58→20:04)
--- NOTE | 2017-10-05 11:10 | PDINTPN ---
Meter Repairer Helper Progress Note Assessment/Plan: Assessment: Sepsis: TSS from Group A Strep in blood. Likely due to phipps wounds/cellulitis. On PCN/linezolid. CT 09/28 negative for myositis/fasciitis. Cellulitis similar in extent today, but continues to look a little bit less erythematous. Infectious Disease following. Tachycardia: Sinus. Improved with fluid resuscitation, low 100s today, CVP 10. Stable. Metabolic acidosis: NAG and anion gap (elevated lactate). Resolved. Hypoglycemia: Normalized. On TFs. Acute respiratory failure: On 50% FiO2, still needing support due to weakness and inability to protect airway. Intubated secondary to progressive respiratory failure on 09/27. Day 8 today on ventilator. Chest x-ray consistent with atelectasis, possible infiltrates and fluid overload, as well as likely right diaphragm paralysis. She was was 22 liters positive, started to diurese 10/02, with good diuresis over the last 3 days... Will continue LINETTE: Non-oliguric. Cr now normalized, good response to diuresis. BUN remains high, but stable. 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 On fentanyl drip at 50 Anemia: Hematocrit 26, better. Probably dilutional as well as decreased production. No evidence of active bleeding. Will follow. Prophylaxis: On Pepcid, SCDs. DVT: On Xarelto Plan: Continue supportive care, ventilatory support, antibiotics. P rognosis remains guarded. Decrease propofol and fentanyl as tolerated. Continue Lasix, albumin as needed. Will decrease respiratory rate and start CPAP trials today. It is unclear if she will be able to tolerate CPAP. If full support is to be continued and respiratory status not improved this week, consider trach. Would need a PEG as well. Would address the possibility of transitioning to comfort care at that decision making time. 50 min of critical care time spent directly with the patient. Discussed with respiratory, hospitalist, nursing, palliative/social group worker, and the ICU multi disciplinary team. Subjective: More alert, looks to voice, nods head appropriately. However, will not move hands to command or stimuli Objective: Vital Signs Temp Pulse Resp BP Pulse Ox 37.1 C 107 H 21 H 92/54 L 100 10/05/17 10:10/05/17 10:10/05/17 10:10/05/17 10:10/05/17 10:00 Laboratory Results 10/05/17 03:57 10/05/17 03:57 10/04/17 10/05/17 10/06/17 05:59 05:59 05:59 Intake Total 3317 3918 Output Total 5503 8164 Balance -2183 -3475 PT 21.5 SEC (12.0-15.0) H 10/01/17 03:55 INR 1.86 (0.83-1.16) H 10/01/17 03:55 Laboratory Tests 10/04/17 10/05/17 10/05/17 07:00 03:57 04:05 pCO2 32 L pO2 157 H ABG pH 7.50 H ABG O2 Saturation 99 H O2 Concentration % 50 Actual Respiration Rate 22 Tidal Volume 576 Pressure Support 10 Calcium 8.0 L Ionized Calcium 1.07 L Magnesium 1.4 L Stool Occult Bld Scrn NEGATIVE CXR: Increased left lower lobe/retrocardiac density. Right hemidiaphragm remains significantly elevated but infiltrate above this appears to be better. Lines and tubes in good position. Physical Exam - Physical Exam General Appearance: mild distress, obese, other (More alert, looks to voice, responds to some questions/commands) EENT: PERRL/EOMI, ET tube, other (OG in place) Neck: normal inspection (Large neck), other (CVP 10) Respiratory: lungs clear (Anteriorly), decreased breath sounds (At bases), No rales, No rhonchi Cardiac/Chest: tachycardia (Sinus, low 100s. Distant heart tones) Abdomen: non-tender, soft (Obese), No normal bowel sounds Pelvic Exam: other (Beltran catheter in place. Output greater than input last 3 days.) Skin: warm/dry, pallor, rash (Erythematous rash in the same distribution but less red, appears somewhat better) Extremities: swelling (Anasarca present, all extremities) Neuro/Psych: cognition abnormalities (Difficult to assess. Can look to voice, answer some simple questions), No no motor/sensory deficits (Little movement of extremities) ICD10 Worksheet Patient Problems: Problems Problem Status Onset Sepsis Acute
--- NOTE | 2017-10-05 11:30 | ASMTCMCOM ---
CM Note CM Note Notes: Patient refarral sent to [facility] where she lives LTC. Date Signed: 10/05/2017 11:29 AM Electronically Signed By:Shayla Singh LCSW
[2017-10-05] MEDS ORDERED: NOREPINEPHRINE/NS 500 ML IV SCH (12:00)
--- NOTE | 2017-10-05 12:12 | HOSPPROG ---
Hospitalist Progress Note Assessment/Plan: # AHRF - remains intubated, mechanically ventilated, sedated on propofol, fentanyl. 50% FiO2, failed weaning trial yesterday. - consider trach if ongoing mechanical ventilation required, now ~1 week on vent # Septic shock -(tachycardia, fever, leukocytosis and hypotension) - 2/2 GAS bacteremia/toxic shock from LE wounds. Off pressors. - CT lower extremity - poss osteomyelitis no abscesses - continue IV PCN, Zyvox (per ID, d/c latter after tomorrow) - s/p IV Hydrocortisone - BP a bit soft today, may need to resume levophed, ok with MAP >60. Also, slow down diuresis # Volume overload - was 22L net positive, now diuresing effectively, 10L neg over past few days. Echo: +diastolic dysfunction, EF 50% - cont IV lasix/albumin, decrease Lasix to 20 mg IV BID (8L neg overnight, may be diuresing a bit too rapidly, possibly contributing to low BP) # tachycardia - query heart strain from volume overload / pulmonary edema - albumin / lasix - continue anticoagulation # Leukocytosis - corresponds with timing of IV steroids which the 4 day course completed 10/01, wbc's 33K -> 13K today - cont to follow on current atbx regimen # anemia - microcytic, hgb stable ~9.3. No e/o bleeding. Per ID, Zyvox can be associated with a red blood cell dysplasia and this med will d/c today. - check iron studies - c/w ACD - cont to trend, transfuse as indicated # severe hypoglycemia- resolved - monitor closely # severe thrombocytopenia-platelets now >100 - transitioned off heparin drip to home Xarelto per tube # acute diarrhea - rectal tube in place, c diff neg # chronic narcotic dependency- on methadone as outpatient- cont fentanyl gtt for sedation # history of pulmonary embolism on outpatient Xarelto # prophylaxis- Xarelto # diet - tube feeds # code status - changed to no CPR / no compressions yesterday # disposition - cont inpt/ICU. Pt remains critically ill requiring high level critical care support. Palliative care consult planned for today to readdress care goals. I have discussed the case with Dr. Helms, care team Subjective: Pt intubated, sedated. Eyes open, tracks, but not following commands. No fevers. Objective: Vital Signs Temp Pulse Resp BP Pulse Ox 37.2 C 109 H 22 H 96/52 L 100 10/05/17 11:00 10/05/17 11:00 10/05/17 11:00 10/05/17 11:00 10/05/17 11:00 Laboratory Results 10/05/17 03:57 10/05/17 03:57 10/04/17 10/05/17 10/06/17 05:59 05:59 05:59 Intake Total 3317 3918 Output Total 5500 8175 1350 Balance -2183 -4257 -1350 PT 21.5 SEC (12.0-15.0) H 10/01/17 03:55 INR 1.86 (0.83-1.16) H 10/01/17 03:55 - Physical Exam Constitutional: no apparent distress Eyes: PERRL Ears, Nose, Mouth, Throat: moist mucous membranes Cardiovascular: regular rate and rhythym Respiratory: no respiratory distress, inspiratory crackles Gastrointestinal: normoactive bowel sounds, soft, non-tender abdomen Skin: other (B/L LE and RUE erythema continues to fade) Musculoskeletal: generalized weakness Psychiatric: encephalopathic ICD10 Worksheet Patient Problems: Problems Problem Status Onset Sepsis Acute
[2017-10-05] MEDS ORDERED: NOREPINEPHRINE BITARTRATE 4 MG in D5W 500 ML IV SCH (13:00)
[2017-10-05] MEDS: RIVAROXABAN 20 MG TAB TUBE SCH (16:07)
[2017-10-05] MEDS: ACETAMINOPHEN 650 MG/20.3 ML UDCUP TUBE PRN (16:34)
[2017-10-05] MEDS: D5W IV SCH (17:35)
[2017-10-05] MEDS: PENICILLIN POTASSIUM IV SCH (17:35)
[2017-10-06] MEDS: PROPOFOL/EMULSION 100 ML IV SCH ×5 (00:20→21:58)
[2017-10-06] MEDS: ACETAMINOPHEN 650 MG/20.3 ML UDCUP TUBE PRN ×2 (03:00→21:16)
[2017-10-06 04:38] LABS: PLATELET COUNT 204 10^3/uL (150-400)
[2017-10-06] MEDS ORDERED: POTASSIUM CL 10 MEQ TAB PO ONE (06:19)
[2017-10-06] MEDS ORDERED: MAGNESIUM SULF 1 GM/DEXTROSE 100 ML IV ONE (06:20)
[2017-10-06] MEDS: FAMOTIDINE 20 MG TAB TUBE SCH ×2 (07:33→20:39)
[2017-10-06] MEDS: FUROSEMIDE 20 MG/2 ML VIAL IVP SCH ×2 (08:23→14:05)
[2017-10-06] MEDS: CHLORHEXIDINE GLUCONATE 15 ML UDL PO SCH ×2 (08:23→21:13)
[2017-10-06] MEDS: INSULIN LISPRO 100 UNIT/ML SC SCH ×3 (08:25→17:47)
[2017-10-06] MEDS ORDERED: FUROSEMIDE 40 MG/4 ML VIAL IVP SCH (09:00)
[2017-10-06] MEDS: fentaNYL/NACL 100 ML IV SCH ×2 (09:04→20:39)
--- NOTE | 2017-10-06 09:37 | PCMIDPN ---
Assessment/Plan: Assessment/Plan: * Septic shock/toxic shock syndrome due to group A strep bacteremia from left lower extremity cellulitis associated with open wound: Residual cellulitis over both lower extremities with decreased cellulitic exchange architect right upper extremity. Continues with denuded ulcerations scattered over areas of cellulitis. Also starting to desquamate skin more diffusely consistent with toxic shock. Continue penicillin and local wound care. Overall prognosis remains guarded. Clinical findings and plan reviewed with Dr. Helms and nursing staff today. * Right middle lobe/lower lobe consolidation/collapse: Will continue observation without modification of antibiotics for pneumonia at this point in time as suspect this could be noninfectious in etiology. 10/06/17 09:34 10/06/17 09:37 Subjective: Intubated, off pressors. Linezolid discontinued yesterday after 7 days of therapy for antitoxin effect. Noted to have blood from ET tube. Objective: Vital Signs Temp Pulse Resp BP Pulse Ox 37.2 C 111 H 23 H 101/60 100 10/06/17 08:11 10/06/17 08:11 10/06/17 08:11 10/06/17 08:00 10/06/17 08:11 Microbiology 10/05/17 23:35 - Final Sputum, Induced/Suctioned Laboratory Results 10/06/17 04:10 10/06/17 04:10 10/05/17 10/06/17 10/07/17 05:59 05:59 05:59 Intake Total 3918 2673 Output Total 8131 2530 Balance -4172 -0029 Penicillin # 7 - Physical Exam General Appearance: other (Intubated, opens eyes to name) EENT: ET Tube, No scleral icterus Respiratory: coarse breath sounds Cardiac/Chest: tachycardia Extremities: inflammation (Similar distribution of cellulitis with some decrease in intensity of erythema; scattered areas of denuded ulceration; right upper extremity erythema less prominent) Abdomen: non-tender, No distended Skin: other (Scattered areas of desquamating skin) ICD10 Worksheet Patient Problems: Problems Problem Status Onset Sepsis Acute
--- NOTE | 2017-10-06 12:40 | ASMTCMCOM ---
CM Note CM Note Notes: Palliative care consult today with patient's sister, Emma, Taz, spiritual care,Dr. Helms and myself. Emma was given the choices for care by Dr. Helms. Emma's last conversation with her sister was 3 weeks ago. Patient did not express her preferences but she did state "I don't know how much longer I can do this". Emma needs more time to consider the options.Spoke with Lauren from [facility] who states they have accepted patient to return and can support by letting her dog Lady live with her. CM available for consult, support, or any D/C needs. Date Signed: 10/06/2017 12:39 PM Electronically Signed By:Eugenia Larkin LCSW
[2017-10-06] MEDS: PENICILLIN POTASSIUM IV SCH (13:58)
[2017-10-06] MEDS: D5W IV SCH (13:58)
--- NOTE | 2017-10-06 14:03 | HOSPPROG ---
Hospitalist Progress Note Assessment/Plan: # AHRF - remains intubated, mechanically ventilated, sedated on propofol, fentanyl. 50% FiO2, failed weaning trial yesterday. - consider trach if ongoing mechanical ventilation required, now ~1 week on vent # Septic shock -(tachycardia, fever, leukocytosis and hypotension) - 2/2 GAS bacteremia/toxic shock from LE wounds. Off pressors. - CT lower extremity - poss osteomyelitis no abscesses - continue IV PCN, Zyvox (per ID, d/c latter after tomorrow) - s/p IV Hydrocortisone # Volume overload - was 22L net positive, now diuresing effectively, 10L neg over past few days. Echo: +diastolic dysfunction, EF 50% - cont IV lasix/albumin, decrease Lasix to 20 mg IV BID (8L neg overnight, may be diuresing a bit too rapidly, possibly contributing to low BP) # tachycardia - query heart strain from volume overload / pulmonary edema - albumin / lasix - continue anticoagulation # Leukocytosis - corresponds with timing of IV steroids which the 4 day course completed 10/01, wbc's 33K -> 13K today - cont to follow on current atbx regimen # anemia - microcytic, hgb stable ~9.3. No e/o bleeding. Per ID, Zyvox can be associated with a red blood cell dysplasia and this med will d/c today. - check iron studies - c/w ACD - cont to trend, transfuse as indicated # severe hypoglycemia- resolved - monitor closely # severe thrombocytopenia-platelets now >100 - transitioned off heparin drip to home Xarelto per tube # acute diarrhea - rectal tube in place, c diff neg # chronic narcotic dependency- on methadone as outpatient- cont fentanyl gtt for sedation # history of pulmonary embolism on outpatient Xarelto # prophylaxis- Xarelto # diet - tube feeds # code status - changed to no CPR / no compressions yesterday # disposition - cont inpt/ICU. Pt remains critically ill requiring high level critical care support. Subjective: no new events Objective: Vital Signs Temp Pulse Resp BP Pulse Ox 37.7 C 121 H 19 91/50 L 100 10/06/17 12:00 10/06/17 12:00 10/06/17 12:00 10/06/17 12:00 10/06/17 12:00 Microbiology 10/05/17 23:35 - Final Sputum, Induced/Suctioned Laboratory Results 10/06/17 04:10 10/06/17 04:10 10/05/17 10/06/17 10/07/17 05:59 05:59 05:59 Intake Total 3917 2673 Output Total 8130 4359 Balance -0229 -5191 PT 21.5 SEC (12.0-15.0) H 10/01/17 03:55 INR 1.86 (0.83-1.16) H 10/01/17 03:55 - Physical Exam Constitutional: no apparent distress, appears nourished, not in pain Eyes: anicteric sclera, EOMI Ears, Nose, Mouth, Throat: moist mucous membranes, hearing normal Cardiovascular: regular rate and rhythym, no murmur, rub, or gallop Respiratory: no respiratory distress, other (intubated) Gastrointestinal: normoactive bowel sounds, soft, non-tender abdomen, no palpable masses Skin: other (some erythema bote lower legs/cellulitis) Neurologic: other (sedated) ICD10 Worksheet Patient Problems: Problems Problem Status Onset Sepsis Acute
--- NOTE | 2017-10-06 14:06 | PDINTPN ---
Weed Control Inspector Progress Note Assessment/Plan: Assessment: Sepsis: TSS from Group A Strep in blood. Likely due to phipps wounds/cellulitis. On PCN/linezolid. CT 09/28 negative for myositis/fasciitis. Cellulitis similar in extent today, but continues to look a little bit less erythematous. Infectious Disease following. Tachycardia: Sinus, 100-125 today, CVP 11, Stable. Metabolic acidosis: NAG and anion gap (elevated lactate). Resolved. Hypoglycemia: Normalized. On TFs. Acute respiratory failure: On 45% FiO2, still needing support due to weakness and inability to protect airway. Intubated secondary to progressive respiratory failure on 09/27. Day 9 today on ventilator. Chest x-ray consistent with atelectasis, possible infiltrates and fluid overload, as well as likely right diaphragm paralysis. She was was 22 liters positive, started to diurese 10/02, with good diuresis over the last 4 days... Will continue. Lasix decreased to 20 twice daily. LINETTE: Non-oliguric. Cr now normalized, good response to diuresis. BUN remains high, improved at 43. 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 On fentanyl drip at 50 Anemia: Hematocrit 23.6, down slightly today. Probably dilutional as well as decreased production. No evidence of active bleeding. Will follow. Prophylaxis: On Pepcid, SCDs. DVT: On Xarelto Prognosis: Guarded. Likely will need trach and PEG at this point. The patient at best is looking at very prolonged hospitalization, including transfer to LTAC and indefinite care there. She may never be able to get back to her previous living situation if she were to survive. Discussed again with the patient's sister and medical power of litigation attorney. She understands and is grab playing with issues. Plan: Continue supportive care, ventilatory support, antibiotics. Decrease propofol and fentanyl as tolerated. Continue Lasix, albumin as needed. Continue short CPAP trials if tolerated. If full support is to be continued and respiratory status not improved this week, consider trach. Would need a PEG as well. Continue to address the possibility of transitioning to comfort care at that decision making time. 50 min of critical care time spent directly with the patient. Discussed with the patient's sister in a care conference, respiratory, hospitalist, nursing, palliative/social service liaison, and the ICU multi disciplinary team. Subjective: Sedated, on ventilator. Appears relatively comfortable. Looks to voice. Appears to nod head appropriately to some simple questions. Objective: Vital Signs Temp Pulse Resp BP Pulse Ox 37.7 C 121 H 19 91/50 L 100 10/06/17 12:00 10/06/17 12:00 10/06/17 12:00 10/06/17 12:00 10/06/17 12:00 Microbiology 10/05/17 23:35 - Final Sputum, Induced/Suctioned Laboratory Results 10/06/17 04:10 10/06/17 04:10 10/05/17 10/06/17 10/07/17 05:59 05:59 05:59 Intake Total 3918 2673 Output Total 8115 4970 Balance -4257 -1677 PT 21.5 SEC (12.0-15.0) H 10/01/17 03:55 INR 1.86 (0.83-1.16) H 10/01/17 03:55 Laboratory Tests 10/06/17 04:50 pCO2 40 H pO2 108 H ABG pH 7.43 ABG O2 Saturation 98 H O2 Concentration % 40 Actual Respiration Rate 25 End Tidal CO2 45 PEEP 5 Pressure Support 7 CPAP YES CXR: Persistent opacification of right lower chest. Suspect paralyzed right diaphragm which is responsible for much of this density. Lines and tubes in good position. Physical Exam - Physical Exam General Appearance: obese, other (Sedated on ventilator) EENT: PERRL/EOMI, ET tube (Some blood today from suctioning), other (OG) Neck: normal inspection Respiratory: lungs clear (Anteriorly), decreased breath sounds (At bases, right more so than left), rales (Few at bases), other (Some blood from ETT), No rhonchi Cardiac/Chest: tachycardia (Sinus, low 100s) Abdomen: non-tender, soft (Obese), No normal bowel sounds Pelvic Exam: other (Beltran catheter in place. Output greater than input last 4 days now.) Skin: rash (Erythematous rash in same distribution without significant change management administrator the last 24 hr. Areas of skin sloughing and ulceration present especially left lower extremity.) Extremities: swelling (Anasarca) Neuro/Psych: cognition abnormalities (Difficult to assess.), No no motor/ sensory deficits (Not moving extremities much comma certainly not to command. Occasionally spontaneous?) ICD10 Worksheet Patient Problems: Problems Problem Status Onset Sepsis Acute
--- NOTE | 2017-10-06 15:23 | WOCRNPDOC ---
ANALISACREliane Advanced Assessment Note - Skin Integrity Problem, Advanced Assess Left Lower Leg Venous Stasis Ulcer Dressing Type: Optilock Dressing Description: Intact, Shadowed Exudate Amount: Moderate Exudate Characteristic(s): Purulent Integumentary Issue Intervention: Dressing Changed Va Wound Tissue: Erythema, Hot, Swollen, Venous Dermatitis, Shiny, Taught Va Wound Swelling: Moderate Wound Bed Color: [place], Yellow Wound Bed Constitution: Granulation Tissue (5%), Adhered Slough (95%) Wound Edges: Not Attached Site Measurement - Head-to-Toe Length X Width X Depth (cm): 3.5x2.3x0.2 Skin Integrity Problem Comment: Patient has non healing chronic bilateral anterior lower leg venous stasis ulcers. Now bilateral lower legs have multiple other partial and full thickness wounds that require further care and are continuing to breakdown. Cleaned with ns and gauze. Puracyn to wound bed and covered with optilock. Right Lower Leg Venous Stasis Ulcer Dressing Type: Allevyn Life Dressing Description: Clean/Dry, Intact Exudate Amount: Moderate Exudate Color: Yellow, Green Exudate Characteristic(s): Purulent, Thick Integumentary Issue Intervention: Dressing Changed Va Wound Tissue: Erythema, Swollen, Hemosiderin Staining, Venous Dermatitis, Shiny, Taught Wound Bed Constitution: Adhered Slough (100%) Wound Edges: Not Attached Site Measurement - Head-to-Toe Length X Width X Depth (cm): 4.2x2.9x0.2 Skin Integrity Problem Comment: Full thickness chronic wound on anterior lower leg. Cleaned with ns and gauze. Puracyn to wound bed and covered with optilock. Left Medial Thigh Blister Dressing Type: Gauze Dressing Description: Clean/Dry, Intact Exudate Amount: Scant Exudate Characteristic(s): Serosanguinous Integumentary Issue Intervention: Dressing Changed Wound Bed Constitution: Red/Grasston - Non Granular Tissue (80%), Adhered Slough (20 %), De-roofed Serous Blister Wound Edges: Attached Site Measurement - Head-to-Toe Length X Width X Depth (cm): 1.8x3.6x0.1 Right Anterior Lower Proximal Leg Blister Dressing Type: Allevyn Life Dressing Description: Clean/Dry, Intact Exudate Amount: Moderate Exudate Characteristic(s): Sanguinous Integumentary Issue Intervention: Dressing Changed Va Wound Tissue: Erythema Wound Bed Constitution: Red/Grasston - Non Granular Tissue (100%), De-roofed Serous Blister Wound Edges: Attached Site Measurement - Head-to-Toe Length X Width X Depth (cm): 5.2x4.9x0.1 Skin Integrity Problem Comment: Blistered area that has continued oozing bleeding. Small clots over the surface. Cleaned with ns and gauze. Puracyn to wound bed and covered with gauze. Small optilock tubed down to RN. Left Medial Ankle Dressing Type: Optilock Dressing Description: Intact, Shadowed Exudate Amount: Minimal Exudate Characteristic(s): Serosanguinous Integumentary Issue Intervention: Dressing Changed Va Wound Tissue: Erythema, Hot, Swollen Wound Bed Constitution: Red/Grasston - Non Granular Tissue (50%), Adhered Slough (50 %), De-roofed Serous Blister Site Measurement - Head-to-Toe Length X Width X Depth (cm): 2.6x2.6x0.1 Skin Integrity Problem Comment: Deroofed blister. Cleaned with ns and gauze. Puracyn to wound bed and covered with optilock. Left Posterior Lower Leg Dressing Type: Optilock Dressing Description: Intact, Saturated Exudate Amount: Moderate Exudate Characteristic(s): Sanguinous Integumentary Issue Intervention: Dressing Changed Va Wound Tissue: Erythema, Hot, Swollen Wound Bed Constitution: Granulation Tissue (20%), Adhered Slough (80%) Wound Edges: Attached Site Measurement - Head-to-Toe Length X Width X Depth (cm): 9.5x6.6x0.1 Skin Integrity Problem Comment: Cleaned with ns and gauze. Puracyn to wound bed and covered with optilock. Daisy GARNETT in room for care. Jacqui GARNETT assited with care. Right Lower Lateral Distal Leg Dressing Type: Allevyn Life Dressing Description: Clean/Dry, Intact Exudate Amount: Minimal Exudate Characteristic(s): Serosanguinous Integumentary Issue Intervention: Dressing Changed Va Wound Tissue: Erythema Wound Bed Constitution: Adhered Slough (100%) Wound Edges: Attached Site Measurement - Head-to-Toe Length X Width X Depth (cm): 1.9x0.8x0.1 Skin Integrity Problem Comment: Deroofed blister. Cleaned with ns and gauze. Puracyn to wound bed and covered with optilock. Right Posterior Lower Leg Dressing Type: AllevEatStreet Life Dressing Description: Clean/Dry, Intact Exudate Amount: Minimal Exudate Characteristic(s): Sanguinous Integumentary Issue Intervention: Dressing Changed Va Wound Tissue: Erythema Wound Bed Constitution: Red/Grasston - Non Granular Tissue (80%), Adhered Slough (20 %) Site Measurement - Head-to-Toe Length X Width X Depth (cm): 4.2x2x0.1
[2017-10-06] MEDS: RIVAROXABAN 20 MG TAB TUBE SCH (16:27)
[2017-10-07] MEDS: PROPOFOL/EMULSION 100 ML IV SCH ×3 (03:27→16:21)
[2017-10-07 05:58] LABS: PLATELET COUNT 204 10^3/uL (150-400)
[2017-10-07] MEDS: fentaNYL/NACL 100 ML IV SCH ×2 (08:06→16:22)
[2017-10-07] MEDS: INSULIN LISPRO 100 UNIT/ML SC SCH ×3 (08:17→16:27)
[2017-10-07] MEDS ORDERED: CALCIUM GLUCONATE 50 ML IV ONE (08:33)
[2017-10-07] MEDS ORDERED: POTASSIUM Cl (KCl) 50 ML IV SCH (08:33)
[2017-10-07] MEDS ORDERED: MAGNESIUM SULF 1 GM/DEXTROSE 100 ML IV ONE (08:33)
[2017-10-07] MEDS ORDERED: CALCIUM GLUCONATE 1 GM in D5W 50 ML IV ONE (09:00)
--- NOTE | 2017-10-07 09:12 | PCMIDPN ---
Assessment/Plan: Assessment/Plan: * Septic shock/toxic shock syndrome due to group A strep bacteremia from left lower extremity cellulitis associated with open wound: Cellulitis gradually resolving with continued desquamation of skin consistent with toxic shock syndrome. Continue penicillin. Follow clinical course. * Fever: Recurrent fever with temperature at time of exam 38.5. Will obtain blood cultures to ensure no evidence of catheter associated bloodstream infection given presence of IJ catheter. Given that she is tolerating ventilator weaning trials, think pneumonia less likely contributor. Will monitor without adjustment of antibiotics currently unless dictated otherwise by blood culture findings or clinical circumstances. 10/07/17 09:13 Subjective: Patient undergoing CPAP weaning trials. Opens eyes to name. Objective: Vital Signs Temp Pulse Resp BP Pulse Ox 38.3 C 134 H 16 99/62 L 100 10/07/17 08:06 10/07/17 08:22 10/07/17 08:06 10/07/17 06:00 10/07/17 08:22 Microbiology 10/05/17 23:35 - Final Sputum, Induced/Suctioned Laboratory Results 10/07/17 05:45 10/07/17 05:45 10/06/17 10/07/17 10/08/17 05:59 05:59 05:59 Intake Total 4764 0869 Output Total 4649 9410 [facility] -[phone] - Physical Exam General Appearance: non-toxic, other (Opens eyes and appears to listen when spoken to) EENT: ET Tube, No scleral icterus Respiratory: lungs clear, No respiratory distress Cardiac/Chest: tachycardia, No systolic murmur Extremities: inflammation (Lower extremity erythema less intense in character with scattered areas of desquamating skin; right upper extremity erythema resolving with desquamating skin) Abdomen: non-tender, No distended Skin: other (Ulcerations over anterior shins without significant interval change ) ICD10 Worksheet Patient Problems: Problems Problem Status Onset Sepsis Acute
[2017-10-07] MEDS ORDERED: ALBUMIN 5% 500 ML IV ONE (09:31)
[2017-10-07] MEDS: PENICILLIN POTASSIUM IV SCH (09:37)
[2017-10-07] MEDS: D5W IV SCH (09:37)
--- NOTE | 2017-10-07 09:37 | PDINTPN ---
Iv Therapy Nurse Progress Note Assessment/Plan: Assessment: 56-year-old with morbid obesity, chronic pain and narcotics, immobility, psychiatric disease, etc admitted 09/26 with toxic shock and severe sepsis. Sepsis: TSS from Group A Strep in blood. Likely due to phipps wounds/cellulitis. On PCN, off linezolid. CT 09/28 negative for myositis/fasciitis. Cellulitis slowly improving. Febrile this morning. Infectious Disease following. Tachycardia: Sinus, 100-130s today, CVP 4, Stable. Metabolic acidosis: Resolved. Alkalotic currently: Respiratory and metabolic. Hypoglycemia: Normalized. On TFs. Acute respiratory failure: On 40% FiO2, still needing support due to weakness and inability to protect airway. Intubated secondary to progressive respiratory failure on 09/27. Day 10 today on ventilator. Now tolerating CPAP weans. Has gone for 1 hr this morning. Chest x-ray consistent with atelectasis, possible infiltrates and fluid overload, as well as likely right diaphragm paralysis. She was was 23 liters positive, started to diurese 3/, with good diuresis over the last 5 days, about 11 L. Will continue diuresis but decrease Lasix to daily. LINETTE: Non-oliguric. Cr now normalized, good response to diuresis. BUN continues to improve: 41 today. 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 On fentanyl drip. Anemia: Hematocrit 21, down today. Probably dilutional as well as decreased production, blood draws, some endotracheal bleed. Will type and screen, recheck hematocrit this afternoon. Probably will need blood. Prophylaxis: On Pepcid, SCDs. DVT: On Xarelto Prognosis: Guarded. However over the last several days she has improved somewhat. Her infection is under control, she seems a little bit casing tier, is now tolerating longer CPAP trials, etc. Likely will need trach and PEG. The patient at best is looking at very prolonged hospitalization, including transfer to LTAC and indefinite care there. She may never be able to get back to her previous living situation even if she survives prolonged supportive care. Discussed with the patient's sister on 2 occasions. Will continue these discussions. Plan: Continue supportive care, ventilatory support, antibiotics. Decrease propofol and fentanyl as tolerated. Continue Lasix but decrease to daily from twice daily, continue albumin as needed. Continue CPAP trials, advance as tolerated. Blood cultures today. Possible tracheostomy placement early next week if her sister wishes to proceed with this. Would need a PEG as well. Continue to address the possibility of transitioning to comfort care at that decision making time. 45min of critical care time spent directly with the patient. Discussed withrespiratory, hospitalist, nursing, palliative/director social service, and the ICU multi disciplinary team. Subjective: On CPAP, relatively comfortable, respiratory rate in the 30s, minute ventilation approximately 13 L. Looks to voice, nods head appropriately to some simple questions. Will not follow commands for me regarding moving extremities. Objective: Vital Signs Temp Pulse Resp BP Pulse Ox 38.3 C 134 H 16 99/62 L 100 10/07/17 08:06 10/07/17 08:22 10/07/17 08:06 10/07/17 06:00 10/07/17 08:22 Microbiology 10/05/17 23:35 - Final Sputum, Induced/Suctioned Laboratory Results 10/07/17 05:45 10/07/17 05:45 10/06/17 10/07/17 10/08/17 05:59 05:59 05:59 Intake Total 2673 2219 Output Total 4350 3725 Balance -1677 -1506 PT 21.5 SEC (12.0-15.0) H 10/01/17 03:55 INR 1.86 (0.83-1.16) H 10/01/17 03:55 Laboratory Tests 10/07/17 10/07/17 05:45 05:45 pCO2 37 pO2 89 H ABG pH 7.52 H O2 Concentration % 40 Actual Respiration Rate 24 Set Respiration Rate 18 SIMV YES Tidal Volume 500 PEEP 5 Pressure Support 7 Calcium 7.7 L Ionized Calcium 1.11 L Magnesium 1.5 L CXR: About the same. Decreased atelectasis or infiltrate above high right hemidiaphragm. Lines and tubes in acceptable position Physical Exam - Physical Exam General Appearance: mild distress, obese, other (On vent, on CPAP, looks to voice) EENT: PERRL/EOMI, ET tube, other (OG tube in place) Neck: normal inspection (Large neck) Respiratory: lungs clear (Anteriorly), decreased breath sounds (At bases), No rales, No rhonchi Cardiac/Chest: tachycardia (Sinus, between 101 and 130. No change) Abdomen: non-tender, soft (Obese), No normal bowel sounds (Decreased, present. Tolerating tube feedings. Diarrhea. Rectal tube in place.) Pelvic Exam: other (Beltran catheter in place. Output greater than input over the last 5 days now.) Skin: warm/dry, pallor, rash (Rash about the same, slightly better. Ulcerations and skin sloughing areas present, unchanged) Extremities: swelling (Decreasing anasarca) Neuro/Psych: cognition abnormalities (Difficult to assess. Does answer some simple questions appropriately with yes or no), No no motor/sensory deficits ( Not moving extremities to command, minimally spontaneously) ICD10 Worksheet Patient Problems: Problems Problem Status Onset Sepsis Acute
[2017-10-07] MEDS: FUROSEMIDE 20 MG/2 ML VIAL IVP SCH (09:38)
[2017-10-07] MEDS: FAMOTIDINE 20 MG TAB TUBE SCH ×2 (09:38→22:17)
[2017-10-07] MEDS: CHLORHEXIDINE GLUCONATE 15 ML UDL PO SCH ×2 (12:35→22:17)
[2017-10-07] MEDS: POTASSIUM Cl (KCl) 10 MEQ in NS 100 ML IV SCH ×3 (12:36→15:29)
--- NOTE | 2017-10-07 13:55 | HOSPPROG ---
Hospitalist Progress Note Assessment/Plan: # AHRF - remains intubated, mechanically ventilated, sedated on propofol, fentanyl. 50% FiO2 * weaning slowly * probably will need trach/PEG # Septic shock -(tachycardia, fever, leukocytosis and hypotension) - 2/2 GAS bacteremia/toxic shock from LE wounds. Off pressors. - CT lower extremity - poss osteomyelitis no abscesses - continue IV PCN - s/p IV Hydrocortisone # Volume overload - was 22L net positive, now diuresing effectively, 10L neg over past few days. Echo: +diastolic dysfunction, EF 50% - cont IV lasix/albumin, decrease Lasix to 20 mg IV BID (8L neg overnight, may be diuresing a bit too rapidly, possibly contributing to low BP) # tachycardia - query heart strain from volume overload / pulmonary edema - albumin / lasix - continue anticoagulation # Leukocytosis - corresponds with timing of IV steroids which the 4 day course completed 10/01, wbc's 33K -> 13K today - cont to follow on current atbx regimen # anemia - microcytic, hgb stable ~9.3. No e/o bleeding. Per ID, Zyvox can be associated with a red blood cell dysplasia and this med will d/c today. - check iron studies - c/w ACD - cont to trend, transfuse as indicated * hg dropped a little - will watch # severe hypoglycemia- resolved - monitor closely # severe thrombocytopenia-platelets now >100 - transitioned off heparin drip to home Xarelto per tube # acute diarrhea - rectal tube in place, c diff neg # chronic narcotic dependency- on methadone as outpatient- cont fentanyl gtt for sedation # history of pulmonary embolism on outpatient Xarelto # prophylaxis- Xarelto # diet - tube feeds # code status - changed to no CPR / no compressions yesterday # disposition - cont inpt/ICU. Pt remains critically ill requiring high level critical care support. Subjective: no new events Objective: Vital Signs Temp Pulse Resp BP Pulse Ox 38.5 C H 133 H 17 90/75 L 99 10/07/17 12:00 10/07/17 12:00 10/07/17 12:00 10/07/17 12:00 10/07/17 12:00 Microbiology 10/05/17 23:35 - Final Sputum, Induced/Suctioned Laboratory Results 10/07/17 05:45 10/07/17 05:45 10/06/17 10/07/17 10/08/17 05:59 05:59 05:59 Intake Total 2672 2219 Output Total 4350 3725 450 Balance -1677 -1506 -450 PT 21.5 SEC (12.0-15.0) H 10/01/17 03:55 INR 1.86 (0.83-1.16) H 10/01/17 03:55 - Physical Exam Constitutional: no apparent distress, appears nourished, not in pain Eyes: anicteric sclera, EOMI Ears, Nose, Mouth, Throat: moist mucous membranes Cardiovascular: tachycardia Respiratory: no respiratory distress, no rales or rhonchi, other (intubated) Skin: warm Neurologic: other (nods to some questions) ICD10 Worksheet Patient Problems: Problems Problem Status Onset Sepsis Acute
[2017-10-07] MEDS ORDERED: PROTOCOL POTASSIUM 1 DOSE MISC PRN (17:12)
[2017-10-07] MEDS ORDERED: PROTOCOL MAGNESIUM 1 DOSE IV PRN (17:12)
[2017-10-07] MEDS ORDERED: PROTOCOL K PHOSPHATE 1 DOSE IV PRN (17:12)
[2017-10-07] MEDS ORDERED: PROTOCOL CALCIUM 1 DOSE IV PRN (17:12)
[2017-10-07] MEDS ORDERED: POTASSIUM CL 10 MEQ TAB TUBE ONE (19:52)
[2017-10-07] MEDS ORDERED: POTASSIUM CL 20 MEQ/15 ML UDCUP PO ONE (21:33)
[2017-10-08] MEDS: fentaNYL/NACL 100 ML IV SCH ×3 (00:38→19:01)
[2017-10-08] MEDS: PROPOFOL/EMULSION 100 ML IV SCH ×4 (00:39→19:54)
[2017-10-08] MEDS: D5W IV SCH (04:54)
[2017-10-08] MEDS: PENICILLIN POTASSIUM IV SCH (04:54)
[2017-10-08] MEDS ORDERED: POTASSIUM CL 10 MEQ TAB PO ONE ×2 (05:44→19:58)
[2017-10-08] MEDS ORDERED: POTASSIUM CL 20 MEQ/15 ML UDCUP TUBE ONE ×2 (07:00→20:00)
[2017-10-08] MEDS ORDERED: MAGNESIUM SULF 1 GM/DEXTROSE 100 ML IV ONE (07:24)
[2017-10-08] MEDS: CHLORHEXIDINE GLUCONATE 15 ML UDL PO SCH ×2 (08:03→19:54)
[2017-10-08] MEDS: FAMOTIDINE 20 MG TAB TUBE SCH ×2 (08:03→19:54)
[2017-10-08] MEDS: INSULIN LISPRO 100 UNIT/ML SC SCH ×3 (08:03→18:19)
[2017-10-08] MEDS ORDERED: FUROSEMIDE 20 MG/2 ML VIAL IVP SCH (09:00)
--- NOTE | 2017-10-08 09:08 | HOSPPROG ---
Hospitalist Progress Note Assessment/Plan: #Septic shock: GAS bacteremia, leg cellulitis. PCN (Day 8) #AHRF: wean as tolerated. May need trach/PEG, but want to give a few more days of weaning trial #Fever: blood cultures done 10/07. Holding off abx for PNA as improving on vent. DC central line and place PICC #Acute decompensated diastolic HF: diuresing #Microcytic anemia: Stopped Zyvoxx as can cause blood dyscrasia. No e/o overt bleeding. Transfused 1 unit RBC 10/07. Restart Xarelto if H/H stable tomorrow #Thrombocytopenia: resolved #Leukocytosis: resolved #h/o PE: Xarelto on hold today #Tachycardia: #Chronic opioid dependency #Diet: NPO #Disp: cont inpatient admission for ventilation, trial weans. May need trach/ PEG. Case discussed with Dr. Helms and patient's sister # Subjective: following simple commands. Weaning trials this morning Objective: Vital Signs Temp Pulse Resp BP Pulse Ox 38.6 C H 133 H 23 H 106/60 98 10/08/17 05:36 10/08/17 09:02 10/08/17 08:28 10/08/17 04:00 10/08/17 09:02 Microbiology 10/05/17 23:35 - Final Sputum, Induced/Suctioned Laboratory Results 10/08/17 04:50 10/08/17 04:50 10/07/17 10/08/17 10/09/17 05:59 05:59 05:59 Intake Total 2219 3596 Output Total 3725 2550 Balance -1506 1046 PT 21.5 SEC (12.0-15.0) H 10/01/17 03:55 INR 1.86 (0.83-1.16) H 10/01/17 03:55 - Physical Exam Constitutional: obese, uncomfortable Eyes: PERRL Ears, Nose, Mouth, Throat: other (ET in place) Cardiovascular: tachycardia Respiratory: inspiratory crackles Gastrointestinal: normoactive bowel sounds Genitourinary: calhoun in urethra Skin: warm, other (sloughing skin over legs. 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
--- NOTE | 2017-10-08 09:35 | PCMIDPN ---
Assessment/Plan: # Septic shock/toxic shock syndrome due to group A strep bacteremia from left lower extremity cellulitis associated with open wound. Starting weaning from vent, pressors stopped 2 days ago. WBC normalized. Still w fever and tachycardia - but generally trajectory is slowly improving. --IV PCN gtt (no evidence of toxicity: Cr nl and ANC elevated yesterday 10/07) --no abx changes # Fever, resumed around 10/04: R IJ in place since admission. CDiff 10/02 --consider DC IJ and change to PICC --blood cx repeated yesterday --no change in bowel habits to warrant repeat Cdiff testing # Yen in sputum reflects colonization meds, Abx #13 PCN 20MU gtt #8 micro 09/26 blood cx (2) GAS 09/28 Blood cx (2) neg 10/07 blood cx (2) pending 10/05 sputum : yen Subjective: off pressors x 2 days weaning from vent Objective: Vital Signs Temp Pulse Resp BP Pulse Ox 38.6 C H 133 H 23 H 106/60 98 10/08/17 05:36 10/08/17 09:02 10/08/17 08:28 10/08/17 04:00 10/08/17 09:02 Microbiology 10/05/17 23:35 - Final Sputum, Induced/Suctioned Laboratory Results 10/08/17 04:50 10/08/17 04:50 10/07/17 10/08/17 10/09/17 05:59 05:59 05:59 Intake Total 2219 3596 Output Total 3725 2550 Balance -1506 1046 - Physical Exam General Appearance: alert, obese EENT: pale conjunctiva, ET Tube, NG Tube Respiratory: accessory muscle use, coarse breath sounds Neck: supple, other (R IJ dressing rolling off) Cardiac/Chest: tachycardia Extremities: erythema (serpiginous jaime erythema L hip / gluteal region), other (Chronic wasting B LE) Abdomen: non-tender, soft Pelvic Exam: calhonu Skin: No rash Neuro/Psych: other (awake and tracking) - Time Spent With Patient Time Spent with Patient: greater than 35 minutes Time Spent with Patient: Greater than 35 minutes spent on this patients care, greater than 50% of time spent counseling, educating, and coordinating care regarding the above mentioned plan. ICD10 Worksheet Patient Problems: Problems Problem Status Onset Sepsis Acute
--- NOTE | 2017-10-08 10:00 | PDINTPN ---
Personnel Generalist Manager Progress Note Assessment/Plan: Assessment: 56-year-old with morbid obesity, chronic pain and narcotics, immobility, psychiatric disease, etc admitted 09/26 with toxic shock and severe sepsis associated with respiratory failure. Sepsis: TSS from Group A Strep in blood. Likely due to phipps wounds/cellulitis. On PCN, off linezolid. CT 09/28 negative for myositis/fasciitis. Cellulitis has significantly improved over the last several days. Remains intermittently febrile. Blood cultures redrawn yesterday. Infectious Disease following. Tachycardia: Sinus, 100-130s, CVP higher today, Stable. Metabolic acidosis: Resolved. Alkalotic currently: Respiratory and metabolic. Hypoglycemia: Normalized. On TFs. Acute respiratory failure: On 40% FiO2, still needing support due to weakness and inability to protect airway. Intubated secondary to progressive respiratory failure on 09/27. Day 11 today on ventilator. Now tolerating CPAP weans, up to 1 hr plus several times a day. Chest x-ray consistent with atelectasis, possible infiltrates and fluid overload, as well as likely right diaphragm paralysis. She was was 23 liters positive, started to diurese 10/02, with good diuresis over the last 6 days, about 11 L, but upper L again over the last 24 hr with decrease in Lasix to daily.. LINETTE: Non-oliguric. Cr now normalized, good response to diuresis. BUN improved. 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 On fentanyl drip. Anemia: Hematocrit 24 after 1 unit of packed cells yesterday. Probably dilutional as well as decreased production, blood draws, some endotracheal bleed. Prophylaxis: On Pepcid, SCDs. DVT: On Xarelto Prognosis: Guarded still, but improved. However over the last several days she has improved significantly. 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 May need need trach and PEG. The patient is still looking at prolonged hospitalization, including possible transfer to LTAC. She may or may not be able to get back to her previous living situation. Discussed with the patient' s sister again today. Plan: Continue supportive care, ventilatory support, antibiotics. Decrease propofol and fentanyl as tolerated. Continue Lasix back at 20 twice daily dosing, continue albumin as needed. Continue CPAP trials, advance as tolerated : Aiming for 1 hr x4 today. I would hope to possibly be able to extubate her in 2 or 3 days and avoid tracheostomy if she does well. If she were to fail extubation then tracheostomy would be needed. A PEG tube may be needed as well. Follow laboratory and x-ray, blood gas. 50min of critical care time spent directly with the patient. Discussed with patient's sister and MD GERONIMO, RT, hospitalist, nursing, and the ICU multi disciplinary team. Subjective: Looks to voice. More responsive. On CPAP. Appears relatively comfortable Objective: Vital Signs Temp Pulse Resp BP Pulse Ox 38.6 C H 133 H 23 H 106/60 98 10/08/17 05:36 10/08/17 09:02 10/08/17 08:28 10/08/17 04:00 10/08/17 09:02 Microbiology 10/05/17 23:35 - Final Sputum, Induced/Suctioned Laboratory Results 10/08/17 04:50 10/08/17 04:50 10/07/17 10/08/17 10/09/17 05:59 05:59 05:59 Intake Total 2219 3596 Output Total 3725 2550 Balance -1506 1046 PT 21.5 SEC (12.0-15.0) H 10/01/17 03:55 INR 1.86 (0.83-1.16) H 10/01/17 03:55 Laboratory Tests 10/07/17 10/08/17 10/08/17 05:45 04:50 08:02 pCO2 37 pO2 89 H ABG pH 7.52 H ABG O2 Saturation 97 H O2 Concentration % 40 Actual Respiration Rate 24 Set Respiration Rate 18 SIMV YES Tidal Volume 500 PEEP 5 Pressure Support 7 POC Glucose 131 H Phosphorus 4.3 Magnesium 1.7 CXR: None today. Physical Exam - Physical Exam General Appearance: alert, no apparent distress, obese, other (On CPAP. Denies significant shortness of breath, significant pain.) EENT: PERRL/EOMI, ET tube, other (OG tube in place) Neck: normal inspection (Large neck) Respiratory: lungs clear (Anteriorly), decreased breath sounds, No rhonchi Cardiac/Chest: tachycardia (Sinus, distant heart tones) Abdomen: normal bowel sounds, non-tender, soft (Obese), other (Tolerating tube feeding) Rectal: other (Beltran catheter in place. Input greater than output last 24 hr with reduction in Lasix) Skin: warm/dry, pallor Extremities: swelling (Anasarca is improving) Neuro/Psych: No no motor/sensory deficits (Very weak. Now starting to move hands to command), No cognition abnormalities (Appears intact) ICD10 Worksheet Patient Problems: Problems Problem Status Onset Sepsis Acute
[2017-10-08] MEDS ORDERED: ALTEPLASE 2 MG VIAL IVP PRN ×2 (11:52→12:22)
[2017-10-08] MEDS: ACETAMINOPHEN 650 MG SUPP PR PRN (12:45)
--- NOTE | 2017-10-08 13:29 | ASMTCMCOM ---
CM Note CM Note Notes: Patient's prognosis remains guarded although she has made some signficiant improvements. She remains intubated but is able to tolerate longer CPAP trials. Per automotive airconditioning mechanic, will attempt to extubate in 2-3 days to avoid tracheostomy. I spoke with patient's sister Emma about discharge planning. She feels like it's way too early to discuss this but she did express understanding that we like to have options pending. Patient may need LTAC if she gets a trach and/or PEG. If she is able to return to a [facility] care facility (like [facility]), Emma might like to explore options other than [facility]. She did ask to speak with someone from [facility], and Lauren was onsite today. If they are unable to connect in person, I will connect them by phone. I gave Emma a list of area LTAC so she can begin to visit them if it seems patient will need that level of care. Case Management will follow. Date Signed: 10/08/2017 01:28 PM Electronically Signed By:Nilsa Jeter RN
[2017-10-08] MEDS: FUROSEMIDE 20 MG/2 ML VIAL IVP SCH (14:48)
[2017-10-08] MEDS ORDERED: LIDOCAINE 1% 300 MG/30 ML SDV ONE (16:50)
[2017-10-09] MEDS: D5W IV SCH ×2 (00:05→19:51)
[2017-10-09] MEDS: PENICILLIN POTASSIUM IV SCH ×2 (00:05→19:51)
[2017-10-09 02:32] LABS: PLATELET COUNT 228 10^3/uL (150-400)
[2017-10-09] MEDS: ACETAMINOPHEN 650 MG/20.3 ML UDCUP TUBE PRN (03:19)
[2017-10-09] MEDS ORDERED: MAGNESIUM SULF 1 GM/DEXTROSE 100 ML IV ONE (05:30)
[2017-10-09] MEDS: fentaNYL/NACL 100 ML IV SCH (07:57)
[2017-10-09] MEDS: FUROSEMIDE 20 MG/2 ML VIAL IVP SCH ×3 (07:57→13:51)
[2017-10-09] MEDS: CHLORHEXIDINE GLUCONATE 15 ML UDL PO SCH ×2 (07:57→08:42)
[2017-10-09] MEDS: FAMOTIDINE 20 MG TAB TUBE SCH ×2 (07:57→20:17)
[2017-10-09] MEDS: INSULIN LISPRO 100 UNIT/ML SC SCH ×3 (08:18→18:36)
--- NOTE | 2017-10-09 09:21 | PDINTPN ---
Account Contact Associate Progress Note Assessment/Plan: Assessment: 56-year-old with morbid obesity, chronic pain and narcotics, immobility, psychiatric disease, etc admitted 09/26 with toxic shock and severe sepsis associated with respiratory failure. Sepsis: TSS from Group A Strep in blood. Likely due to phipps wounds/cellulitis. On PCN, off linezolid. CT 09/28 negative for myositis/fasciitis. Cellulitis has significantly improved over the last several days. Remains febrile to 38.5. Blood cultures redrawn 10/07: neg. Infectious Disease following. Tachycardia: Sinus, 100-130s, CVP higher today, Stable. Metabolic acidosis: Resolved. Alkalotic currently: Respiratory and metabolic. Hypoglycemia: Normalized. On TFs. Acute respiratory failure: On 40% FiO2, and now tolerating prolonged CPAP weans with acceptable weaning parameters and an excellent ABG. Indicates she wants the tube out Intubated secondary to progressive respiratory failure on . Day 12 today on ventilator. Chest x-ray improved and close to baseline. Still has some streaky infiltrates or atelectasis but not marked. High right hemidiaphragm is chronic. She was was 23 liters positive, started to diurese 10/02, with good diuresis over the last 7 days, about 12 L. I think we have a window today to attempt extubation in see how she does. If she fails will need re-intubation comma tracheostomy. LINETTE: Non-oliguric. Cr now normalized, good response to diuresis. BUN improved: 29. 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 On fentanyl drip. Anemia: Hematocrit 23 after 1 unit of packed cells 10/07. Will give another today. Probably dilutional as well as decreased production, blood draws, some endotracheal bleed. Prophylaxis: On Pepcid, SCDs. DVT: On Xarelto Prognosis: Guarded still, but significantly improved. 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 The patient is still looking at prolonged hospitalization, including possible transfer to LTAC. She may or may not be able to get back to her previous living situation. Plan: Will extubate this morning and see how she does. If she fails she will need re-intubation unless she can clearly state she does not want this. Continue supportive care, antibiotics. 1 unit of PRBCs to be given today Continue Lasix back at 20 twice daily dosing, continue albumin if needed. Follow respiratory status closely post extubation, continue to follow laboratory and x-ray, blood gas daily for now. OG tube will need to come out when she is extubated. Probably will need a NG tube as I doubt she will initially be able to swallow safely. 55min of critical care time spent directly with the patient. Discussed with patient's sister and MD GERONIMO, RT, hospitalist, nursing, and the ICU multi disciplinary team. Subjective: Awake, alert, indicates she is doing okay. On CPAP for over 4 hr. Did well. Cast looks good. Indicates she wants to come off the ventilator. Objective: Vital Signs Temp Pulse Resp BP Pulse Ox 38.2 C 135 H 32 H 97/57 L 100 10/09/17 08:33 10/09/17 08:33 10/09/17 08:33 10/09/17 08:33 10/09/17 08:33 Microbiology 10/05/17 23:35 - Final Sputum, Induced/Suctioned Sputum Culture - Final [facility] Laboratory Results 10/09/17 02:20 10/09/17 02:20 10/08/17 10/09/17 10/10/17 05:59 05:59 06:59 Intake Total 3596 2415 Output Total 2550 3300 175 Balance 1046 -885 -175 PT 21.5 SEC (12.0-15.0) H 10/01/17 03:55 INR 1.86 (0.83-1.16) H 10/01/17 03:55 Laboratory Tests 10/09/17 10/09/17 10/09/17 02:20 02:20 09:06 pCO2 38 pO2 120 H ABG pH 7.47 H ABG O2 Saturation 99 H O2 Concentration % 40 PEEP 5 CPAP YES Calcium 7.8 L Ionized Calcium 1.17 Phosphorus 4.6 H Magnesium 1.8 CXR: High right hemidiaphragm with some atelectasis/infiltrate above. Some retrocardiac streakiness. Appears to be fairly close to her baseline chest x- ray pre hospitalization. Physical Exam - Physical Exam General Appearance: alert, no apparent distress, obese, other (On ventilator, off sedation) EENT: PERRL/EOMI, ET tube, other (OG tube in place) Neck: normal inspection (Large neck) Respiratory: lungs clear (Anteriorly), decreased breath sounds (At bases, right more so than left), No rales, No rhonchi, No wheezing Cardiac/Chest: tachycardia (Sinus, 120-130) Abdomen: normal bowel sounds, non-tender, soft (Obese) Pelvic Exam: other (Beltran catheter in place. Output greater than input last 24 hr with twice daily Lasix) Skin: warm/dry, pallor, rash (Improved diffuse rash) Extremities: swelling (Improved anasarca), other (Areas of excoriation/ sloughing look better.) Neuro/Psych: No no motor/sensory deficits (Moving extremities with increased strength), No cognition abnormalities (Appears intact) ICD10 Worksheet Patient Problems: Problems Problem Status Onset Sepsis Acute
[2017-10-09] MEDS ORDERED: ENOXAPARIN 120 MG/0.8 ML SYR SC SCH (10:15)
[2017-10-09] MEDS ORDERED: LORazepam 2 MG/ML INJ IVP ONE (10:15)
--- NOTE | 2017-10-09 10:17 | HOSPPROG ---
Hospitalist Progress Note Assessment/Plan: #Septic shock: GAS bacteremia, leg cellulitis. PCN (Day 9) #AHRF: extubated this morning. Low-reserve with paralyzed right hemidiaphragm/ weakness, so high-rsik for re-intubation. May need trach/PEG, but want to give a few more days of weaning trial #Fever: blood cultures done 10/07. Dc'd central line. PICC in place. Blood cultures pending, UA -U/S RUE pending given increased redness #Acute decompensated diastolic HF: diuresing #Microcytic anemia: H/H stable. No e/o overt bleeding. Transfused 1 unit RBC 10/07. #Thrombocytopenia: resolved #Leukocytosis: resolved #h/o PE: refusing NG tube, start heparin gtt #Tachycardia: multifactorial with fever, #Chronic opioid dependency #Diet: NPO #Disp: cont inpatient admission for pulse oximetry May need trach/PEG. Case discussed with Dr. Helms and patient's sister # Subjective: extubated this morning Objective: Vital Signs Temp Pulse Resp BP Pulse Ox 38.2 C 133 H 32 H 97/57 L 100 10/09/17 08:33 10/09/17 09:32 10/09/17 08:33 10/09/17 08:33 10/09/17 09:32 Microbiology 10/05/17 23:35 - Final Sputum, Induced/Suctioned Sputum Culture - Final [facility] Laboratory Results 10/09/17 02:20 10/09/17 02:20 10/08/17 10/09/17 10/10/17 05:59 05:59 06:59 Intake Total 3596 2415 Output Total 2550 3300 175 Balance 1046 -885 -175 PT 21.5 SEC (12.0-15.0) H 10/01/17 03:55 INR 1.86 (0.83-1.16) H 10/01/17 03:55 - Physical Exam Constitutional: other (anxoius) Ears, Nose, Mouth, Throat: moist mucous membranes, hearing normal Cardiovascular: tachycardia Respiratory: other (increased WOB) Gastrointestinal: normoactive bowel sounds Genitourinary: calhoun in urethra Skin: warm, other (skin sloughing UEs, legs. open wounds on left leg, thigh without cellulitis) Musculoskeletal: generalized weakness, other (RUE with sloughing, redness, swollen) Neurologic: CN II-XII Intact Psychiatric: interacting appropriately, anxious ICD10 Worksheet Patient Problems: Problems Problem Status Onset Sepsis Acute
[2017-10-09] MEDS: HYDROmorphone HCL/NS 0.5 MG/ML SYR IVP PRN ×4 (12:07→18:46)
--- NOTE | 2017-10-09 13:16 | PCMIDPN ---
Assessment/Plan: 1. Toxic shock syndrome secondary to group a strep from left lower extremity cellulitis: Patient unfortunately remains febrile, but clinical parameters have improved. ( Now off pressors, extubated today). She now has a PICC line, and the right IJ has been removed. This is the 1st time I am meeting her, but I am concerned about her right upper extremity, which is quite swollen, warm, and very painful. She still has some patches of beet red erythema in the right upper extremity as well. For now, will continue penicillin as is, as she is without evidence of drug allergy or toxicity (no AIN, no drug eruption). Will start with right upper extremity ultrasound today, and consider CT scan of the arm tomorrow if she is more clinically stable. (The nurse does not feel she would be able to tolerate CT presently given tenuous respiratory status, etc.) As outlined by my colleague, no evidence of C difficile, or healthcare associated pneumonia. Subjective: Remains febrile. The nurse tells me that she cannot move her right upper extremity, as the patient winces in pain. Denies diarrhea. Was extubated earlier today, but has a tenuous respiratory status. Patient's sister is in the room. Objective: Penicillin 20,000,000 units daily day 9 T-max 38.9 degrees Vital Signs Temp Pulse Resp BP Pulse Ox 38.8 C H 142 H 25 H 134/84 H 100 10/09/17 12:00 10/09/17 12:00 10/09/17 12:00 10/09/17 12:00 10/09/17 12:00 Microbiology 10/05/17 23:35 - Final Sputum, Induced/Suctioned Sputum Culture - Final [facility] Laboratory Results 10/09/17 02:20 10/09/17 02:20 10/08/17 10/09/17 10/10/17 05:59 05:59 06:59 Intake Total 3596 2415 Output Total 2550 3300 500 Balance 1046 -885 -500 Blood cultures October 07 no growth - Physical Exam General Appearance: obese, other (Hyperventilating) EENT: other (Injected conjunctiva bilaterally surgical pupil on the left), No thrush Respiratory: accessory muscle use, coarse breath sounds Cardiac/Chest: tachycardia Extremities: other (Right upper extremity extremely painful with passive motion. I am able to flex and extend her elbow joint without pain, but when attempting to elevate her arm, the patient winces. Her right arm is swollen and hot, with patches of beet red blanching erythema. The left arm is without finding such as this. There is a PICC line in the left upper extremity. The left lower extremities notable for patches of dusky erythema that are blanching and improved per the nurse. There is overlying skin desquamation, consistent with toxic shock syndrome and group a strep. Patient has an open pretibial wound on the left with a clean base. Right lower extremity is notable for some excoriations and venous stasis changes. ) Skin: other (No evidence of drug eruption.) ICD10 Worksheet Patient Problems: Problems Problem Status Onset Sepsis Acute
[2017-10-09] MEDS ORDERED: METOPROLOL TARTRATE 5 MG/5 ML INJ IV ONE (14:15)
[2017-10-09] MEDS: LORazepam 2 MG/ML INJ IVP PRN (16:29)
[2017-10-09] MEDS: HEPARIN/DEXTROSE 500 ML IV SCH (16:30)
[2017-10-09 16:54] LABS: PLATELET COUNT 257 10^3/uL (150-400)
[2017-10-09 17:03] LABS: INR 1.17 (0.83-1.16); PROTIME(PATIENT) 15.1 SEC (12.0-15.0)
[2017-10-09] MEDS ORDERED: RIVAROXABAN 20 MG TAB TUBE SCH (18:00)
[2017-10-09] MEDS: ACETAMINOPHEN 650 MG SUPP PR PRN (18:01)
[2017-10-10 03:30] LABS: PLATELET COUNT 278 10^3/uL (150-400)
[2017-10-10] MEDS ORDERED: POTASSIUM Cl (KCl) 50 ML IV ONE (04:15)
[2017-10-10] MEDS: HEPARIN 10,000 UNIT/10 ML MDV (1,000 UNIT/ML) IVP PRN (04:26)
[2017-10-10] MEDS: HEPARIN/DEXTROSE 500 ML IV SCH ×2 (07:01→18:26)
[2017-10-10] MEDS: INSULIN LISPRO 100 UNIT/ML SC SCH ×3 (09:05→18:37)
[2017-10-10] MEDS: FUROSEMIDE 20 MG/2 ML VIAL IVP SCH ×2 (10:05→15:14)
[2017-10-10] MEDS: FAMOTIDINE 20 MG TAB TUBE SCH ×2 (10:05→20:24)
[2017-10-10] MEDS ORDERED: IOPAMIDOL (ISOVUE-300) 100 ML BTL ONE (10:12)
[2017-10-10] MEDS: CHLORHEXIDINE GLUCONATE 15 ML UDL PO SCH (10:29)
--- NOTE | 2017-10-10 11:01 | HOSPPROG ---
Hospitalist Progress Note Assessment/Plan: #Persistent fever: concern for septic shoulder or infection RUE. Significant pain. Less redness -improved CXR, UA negative. CT arm with no drainable abscess. -Appreciate ID. RUQ eval for acalculous cholecystitis -changed to Meropenem for possible PCN-related fever. Blood cultures negative #Septic shock: resolved. GAS bacteremia, leg cellulitis. Changed to Meropenem for possible drug fever #AHRF: extubated 10/09. Low-reserve with paralyzed right hemidiaphragm/weakness, so high-risk for re-intubation. May need trach/PEG. PRN BiPap #Acute decompensated diastolic HF: diuresing #Microcytic anemia: H/H stable. No e/o overt bleeding. Transfused 1 unit RBC 10/07. #Thrombocytopenia: resolved #Leukocytosis: resolved #h/o PE: refusing NG tube, start heparin gtt #Tachycardia: multifactorial with fever, deconditioning. Schedule Metoprolol #Chronic opioid dependency: low-dose Fentanyl gtt since can't take PO #Diet: NPO. Try to place NG, so can take home meds #Disp: cont inpatient admission for pulse oximetry May need trach/PEG. Case discussed with Dr. Helms and patient's sister # Subjective: still fevering. Pain in RU arm Objective: Vital Signs Temp Pulse Resp BP Pulse Ox 38.7 C H 135 H 36 H 122/55 H 100 10/10/17 10:00 10/10/17 10:00 10/10/17 10:00 10/10/17 10:00 10/10/17 10:00 Laboratory Results 10/10/17 03:20 10/10/17 03:20 10/09/17 10/10/17 10/11/17 04:59 05:59 05:59 Intake Total Output Total Balance PT 15.1 SEC (12.0-15.0) H 10/09/17 16:45 INR 1.17 (0.83-1.16) H 10/09/17 16:45 - Time Spent With Patient Time Spent with Patient: greater than 35 minutes Time Spent with Patient: Greater than 35 minutes spent on this patients care, greater than 50% of time spent counseling, educating, and coordinating care regarding the above mentioned plan. - Physical Exam Constitutional: obese Eyes: PERRL Ears, Nose, Mouth, Throat: moist mucous membranes, hearing normal Cardiovascular: tachycardia Respiratory: reduced air movement Gastrointestinal: normoactive bowel sounds Genitourinary: calhoun in urethra Skin: other (small blisters upper chest) Musculoskeletal: other (significant pain with elevation right arm. Upper arm still swollen, mildy less redness) Neurologic: CN II-XII Intact, other (able to answer questions. Following commands) ICD10 Worksheet Patient Problems: Problems Problem Status Onset Sepsis Acute
--- NOTE | 2017-10-10 11:33 | PDINTPN ---
Claim Trainee Progress Note Assessment/Plan: Assessment: 56-year-old with morbid obesity, chronic pain and narcotics, immobility, psychiatric disease, etc admitted 09/26 with toxic shock and severe sepsis associated with respiratory failure. On ventilator for 12 days, extubated 10/09 to BiPAP at night and intermittently during the day. Sepsis: TSS from Group A Strep in blood. Likely due to phipps wounds/cellulitis. On PCN, off linezolid. CT 09/28 negative for myositis/fasciitis. Cellulitis has significantly improved over the last several days. Remains febrile to 39 today. Blood cultures redrawn 10/07: neg. Right upper extremity including shoulder joint is concerning for a possible source. For CT scan today. Infectious Disease following. Tachycardia: Sinus, 100-130s, CVP higher today, Stable. Was on a beta-reji as an outpatient. Will start scheduled metoprolol intravenously for now. Metabolic acidosis: Resolved. Alkalotic currently: Respiratory and metabolic. Hypoglycemia: Normalized. On TFs. Acute respiratory failure: On 40% FiO2, and now tolerating prolonged CPAP weans with acceptable weaning parameters and an excellent ABG. Indicates she wants the tube out Intubated secondary to progressive respiratory failure on . Was on the ventilator for 12 days. Chest x-ray progressively improved and close to baseline. Still has some streaky infiltrates or atelectasis but not marked. High right hemidiaphragm is chronic. She is about 25 liters positive since admission, started to diurese 10/02, with good diuresis over the last 7+ days, about 14 L. I felt there was a window to extubate yesterday and she has stayed off the ventilator for 24 hr. However, respiratory status remains marginal. She is tachypneic, has some secretions but is on 3 L. On BiPAP at night and can uses during the day. She remains at relatively high risk for re- intubation. If this is needed tracheostomy would need to be done. LINETTE: Non-oliguric. Cr now normalized, good response to diuresis. BUN normalizin. 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 On chronic narcotics at halfway. On fentanyl drip currently at 25. Anemia: Hematocrit 25.6 after 1 unit of packed cells 10/07 and 10/09. Probably dilutional as well as decreased production, blood draws, some endotracheal bleeding previously. On full-dose anticoagulation. Prophylaxis: On Pepcid, SCDs. DVT: On Xarelto. Nutrition: None currently as OG tube was discontinued yesterday with extubation. Will place NG tube today. Prognosis: Guarded still, but significantly improved. 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 The patient is still looking at prolonged hospitalization, including possible transfer to LTAC. She may or may not be able to get back to her previous living situation. Plan: Continue care off the ventilator, with BiPAP at night and for few hours during the day, and p.r.n.. If she fails she will need re-intubation. She clearly states that she does want this. Continue supportive care, antibiotics. Continue Lasix 20mg twice daily dosing, albumin if needed. Continue to follow respiratory status closely. Follow laboratory and x-ray, blood gas daily for now. CT right upper extremity today. Place NG tube. Start metoprolol 5 mg four times daily. 50min of critical care time spent directly with the patient initially. Discussed with RT, hospitalist, nursing, and the ICU multi disciplinary team. Patient's sister to be in later. Addendum: I met with the patient's sister for about 30 min this afternoon. Subsequently, we both met with the patient. Her sister realizes how sick she is , that she is suffering, but that she has made progress over the last week. She is not ready to go to comfort care for the patient. She would like the patient to participate in decision making if possible and thus we tried to get clarification from the patient regarding what she wanted. Although getting clarification regarding specific details is not possible, the patient does indicate that she wants to continue treatment. I offered re-intubation now to the patient's sister as I think this will be needed at some point in the next 24 hr. The patient's sister requests that we go on BiPAP 1st. Other issues throughout the day: CT of the right upper extremity essentially negative regarding the shoulder. Possible cellulitis and phlegmon present below the elbow? Started on meropenem. NG tube placed. Chest x-ray for placement showed worsening aeration of the right upper lung compared to the morning x-ray. Possible mucus plug? However, repeat arterial blood gas at 5: 00 p.m. is unchanged, looks pretty good. She would not tolerate bronchoscopy unless done via an endotracheal tube. For repeat x-ray in the a.m.. Subjective: Was on BiPAP overnight, off this morning. Remains tachypneic, tachycardic, but compensated, on 3 L. Has generalized pain, somewhat more related to the right upper extremity Objective: Vital Signs Temp Pulse Resp BP Pulse Ox 38.7 C H 135 H 36 H 122/55 H 100 10/10/17 10:00 10/10/17 10:00 10/10/17 10:00 10/10/17 10:00 10/10/17 10:00 Laboratory Results 10/10/17 03:20 10/10/17 03:20 10/09/17 10/10/17 10/11/17 04:59 05:59 05:59 Intake Total Output Total Balance PT 15.1 SEC (12.0-15.0) H 10/09/17 16:45 INR 1.17 (0.83-1.16) H 10/09/17 16:45 Laboratory Tests 10/10/17 10/10/17 10/10/17 03:20 04:50 10:30 Heparin Anti-Xa, Unfract 0.35 pCO2 38 pO2 79 H ABG pH 7.46 H O2 Concentration % 40 Mode BiPAP YES Calcium 8.2 L Phosphorus 5.3 H Magnesium 1.9 Total Bilirubin 1.8 H AST 58 H ALT 52 Albumin 2.5 L CXR: About the same. Elevated right hemidiaphragm. Atelectasis above looks little bit better? Physical Exam - Physical Exam General Appearance: alert, mild distress, obese, other (Nasal cannula in place) EENT: PERRL/EOMI, No ET tube Neck: normal inspection (Large neck) Respiratory: lungs clear, decreased breath sounds (At bases), rhonchi (Few central rhonchi with cough. She is able to clear some secretions.), No rales Cardiac/Chest: tachycardia (Sinus, 130s. Heart tones distant) Abdomen: normal bowel sounds, non-tender, soft (Obese) Pelvic Exam: other (Beltran catheter in place. Good urine output. Output greater than input by 1600 mL last 24 hr.) Skin: warm/dry, pallor, rash (Significantly improved) Extremities: swelling (Decreasing anasarca), other (Areas of skin sloughing look better), No non-tender (Tender, somewhat warm over the right upper extremity compared to the left, but appears better to me compared to yesterday.) Neuro/Psych: No no motor/sensory deficits (Moving upper extremities now weakly to command.), No cognition abnormalities (Appears intact, responding, trying to communicate.) ICD10 Worksheet Patient Problems: Problems Problem Status Onset Sepsis Acute
[2017-10-10] MEDS: METOPROLOL TARTRATE 5 MG/5 ML INJ IVP SCH ×3 (13:22→23:41)
[2017-10-10] MEDS: LORazepam 2 MG/ML INJ IVP PRN (13:24)
[2017-10-10] MEDS ORDERED: LIDOCAINE 2% JELLY 20 ML (UROJECT) ONE (13:38)
[2017-10-10] MEDS ORDERED: LIDOCAINE 2% JELLY 20 ML (UROJECT) UR ONE (13:45)
--- NOTE | 2017-10-10 14:56 | PCMIDPN ---
Assessment/Plan: 1. Toxic shock syndrome secondary to group a strep from left lower extremity cellulitis: Patient is persistently febrile. Query drug fever, although no obvious eosinophilia, AIN, or drug eruption. Given that she has been in house for so long, will change penicillin to meropenem to switch classes of antibiotics and provide broader coverage. Will also check right upper quadrant ultrasound given mild increase in total bilirubin and alkaline phosphatase, to look for evidence of acalculous cholecystitis in the setting of acute illness. Repeat blood cultures are pending. Will need to keep an eye on her right forearm in case the phlegmon seen on CT develops into a drainable focus. 10/10/17 14:51 Subjective: Reviewed CT scan of the arm with Dr. Rivera. The patient has a horribly arthritic elbow, with bony ossicles present, and a small joint effusion. On the volar radial aspect of her arm there is a small 1.5 x 1 cm possible developing phlegmon without drainable focus per se. Patient remains persistently febrile up to 39 degrees. No diarrhea. Is holding her own from a respiratory standpoint, requiring only 4 L of oxygen. Objective: Penicillin 20,000,000 units day 10 T-max 39.1 Vital Signs Temp Pulse Resp BP Pulse Ox 38.5 C H 125 H 38 H 115/70 96 10/10/17 14:00 10/10/17 14:00 10/10/17 14:00 10/10/17 14:00 10/10/17 14:00 Laboratory Results 10/10/17 03:20 10/10/17 03:20 10/09/17 10/10/17 10/11/17 04:59 05:59 05:59 Intake Total 251 Output Total Balance 251 Repeat blood cultures pending - Physical Exam General Appearance: obese, other (Tachypneic) Respiratory: coarse breath sounds Cardiac/Chest: tachycardia Extremities: other (Right arm looks improved today with less swelling. Volar aspect of forearm without obvious fluctuance. There is an erythematous patch of cellulitis there. The patient's cellulitis in her left leg is improved, with brick red blanching erythema and exfoliated skin. The wounds on her pretibial areas are stable.) Abdomen: other (Obese . does not wince when I press on her abdomen) Skin: other (Please see above.) ICD10 Worksheet Patient Problems: Problems Problem Status Onset Sepsis Acute
[2017-10-10] MEDS: MEROPENEM 1 GM in STERILE WATER INJ 20 ML IV SCH ×2 (15:14→20:24)
--- NOTE | 2017-10-10 15:30 | WOCRNPDOC ---
WOCRN Advanced Assessment Note - Skin Integrity Problem, Advanced Assess Sacrum Dressing Type: Allevyn Life Dressing Description: Clean/Dry, Intact Integumentary Issue Intervention: Visualized Under Dressing Va Wound Tissue: Blanching, Erythema Wound Bed Color: [place] Wound Bed Constitution: Red/[place] - Non Granular Tissue Wound Edges: Well Defined Site Measurement - Head-to-Toe Length X Width X Depth (cm): 0.2x0.2x0.1 Skin Integrity Problem Comment: Patient with deep dimple over her sacrum with small opening at base of dimple. Given patient's anatomy, it is very unlikely that this opening is related to pressure but more likely moisture to the area. Wound care will not continue to round on this wound. Please reconsult if wound worsens.
[2017-10-10] MEDS: fentaNYL/NACL 100 ML IV SCH (20:24)
[2017-10-10] MEDS ORDERED: MEROPENEM 1 GM in STERILE WATER INJ 20 ML IV SCH (22:00)
[2017-10-11] MEDS: MEROPENEM 1 GM in STERILE WATER INJ 20 ML IV SCH ×3 (05:00→21:35)
[2017-10-11] MEDS: HEPARIN/DEXTROSE 500 ML IV SCH (05:00)
[2017-10-11] MEDS: METOPROLOL TARTRATE 5 MG/5 ML INJ IVP SCH ×4 (05:01→23:00)
[2017-10-11 05:36] LABS: PLATELET COUNT 383 10^3/uL (150-400)
[2017-10-11] MEDS: HEPARIN 10,000 UNIT/10 ML MDV (1,000 UNIT/ML) IVP PRN (06:05)
[2017-10-11] MEDS ORDERED: PROTOCOL MAGNESIUM 1 DOSE IV PRN (06:19)
[2017-10-11] MEDS ORDERED: MAGNESIUM SULF 1 GM/DEXTROSE 100 ML IV ONE (06:20)
[2017-10-11] MEDS: POTASSIUM Cl (KCl) 50 ML IV SCH ×2 (06:32→06:33)
--- NOTE | 2017-10-11 08:40 | PDINTPN ---
Pinion Staker Progress Note Assessment/Plan: Assessment/Plan: * Sepsis: TSS from Group A Strep in blood. Likely due to phipps wounds/ cellulitis. On PCN, off linezolid. CT 09/28 negative for myositis/fasciitis. Cellulitis has significantly improved over the last several days. Remains febrile to 39 today. Blood cultures redrawn 10/07: neg. Right upper extremity including shoulder joint is concerning for a possible source. For CT scan today. Infectious Disease following. * Tachycardia: Sinus, rate still high. CVP higher today, Stable. Was on a beta-reji as an outpatient. * Metabolic acidosis: Resolved. * Hypoglycemia: Normalized. On TFs. * Acute respiratory failure: On 40% FiO2, and now tolerating prolonged CPAP weans with acceptable weaning parameters and an excellent ABG. Indicates she wants the tube out Intubated secondary to progressive respiratory failure on . Was on the ventilator for 12 days. Respiratory status remains tentative and marginal. She remains tachypneic on BiPAP. He CO2 appears to be climbing over the last several days. It is likely she will require re-intubation and subsequent tracheostomy * LINETTE: Non-oliguric. Cr now normalized, good response to diuresis. BUN normalizin. * Morbid Obesity * Chronic pain: Due to RSD from ankle injury. On chronic narcotics at correction. On fentanyl drip currently at 25. * Anemia: Hematocrit 25.6 after 1 unit of packed cells 10/07 and 10/09. Probably dilutional as well as decreased production, blood draws, some endotracheal bleeding previously. On full-dose anticoagulation. * Prophylaxis: On Pepcid, SCDs. DVT: On Xarelto. * Nutrition: None currently as OG tube was discontinued yesterday with extubation. Will place NG tube today. * Prognosis: Guarded still, but significantly improved. * Disposition The patient is still looking at prolonged hospitalization, including possible transfer to LTAC. She may or may not be able to get back to her previous living situation. Subjective: Awake and alert. Nods head to questions. Objective: Vital Signs Temp Pulse Resp BP Pulse Ox 38.7 C H 131 H 40 H 110/70 100 10/11/17 06:00 10/11/17 06:00 10/11/17 06:00 10/11/17 06:00 10/11/17 06:00 Laboratory Results 10/11/17 05:05 10/11/17 05:05 10/10/17 10/11/17 10/12/17 05:59 05:59 05:59 Intake Total 2316 Output Total 3450 Balance -1134 PT 15.1 SEC (12.0-15.0) H 10/09/17 16:45 INR 1.17 (0.83-1.16) H 10/09/17 16:45 Laboratory Results 10/11/17 05:05 10/11/17 05:05 10/11/17 10/11/17 05:05 04:45 Patient Temperature 38.8 DEGREES DEGREES pCO2 46 mmHg H mmHg (34 - 38) pO2 89 mmHg H mmHg (65 - 75) Total CO2 31 mEq/L H mEq/L (23 - 27) ABG pH 7.43 (7.35 - 7.45) ABG PO2/FiO2 Ratio 223 RATIO RATIO ABG HCO3 29 mEq/L H mEq/L (22 - 26) ABG O2 Saturation 96 % H % (92 - 95) ABG Base Excess 5.4 mEq/L H mEq/L (-2.5 - 2.5) O2 Concentration % 40 % % Expiratory Pressure 5 Inspiratory Pressure 15 Mode BiPAP YES Calcium 8.0 mg/dL L mg/dL (8.5 - 10.4) Ionized Calcium 1.15 MMOL/L MMOL/L (1.12 - 1.30) Phosphorus 5.3 mg/dL H mg/dL (2.5 - 4.5) Magnesium 1.8 mg/dL mg/dL (1.6 - 2.3) Total Bilirubin 1.4 mg/dL mg/dL (0.1 - 1.4) AST 38 IU/L IU/L (14 - 46) ALT 48 IU/L IU/L (9 - 52) Alkaline Phosphatase 245 IU/L H IU/L (38 - 126) Total Protein 5.7 g/dL L g/dL (6.3 - 8.2) Albumin 2.3 g/dL L g/dL (3.5 - 5.0) Chest [id number] by myself. It lines are in good position. There is a large right pleural effusion and diffuse question P - Time Spent With Patient Time Spent With Patient: 35 min of time spent with patient, over 1/2 involved with counseling or coordinate care. Case discussed with respiratory therapy and nursing. ICD10 Worksheet Patient Problems: Problems Problem Status Onset Sepsis Acute
[2017-10-11] MEDS: INSULIN LISPRO 100 UNIT/ML SC SCH ×5 (09:12→23:06)
[2017-10-11] MEDS: FAMOTIDINE 20 MG TAB TUBE SCH ×2 (09:25→21:32)
[2017-10-11] MEDS: FUROSEMIDE 20 MG/2 ML VIAL IVP SCH ×2 (09:26→14:36)
--- NOTE | 2017-10-11 15:37 | PCMIDPN ---
Assessment/Plan: Assessment/Plan: * Septic shock/toxic shock syndrome due to group A strep bacteremia from left lower extremity cellulitis associated with open wound: Cellulitis gradually resolving with continued desquamation of skin consistent with toxic shock syndrome. Persistent pain in right upper extremity; CT reviewed without drainable focus in no apparent effusion present in right shoulder. Covered currently by meropenem which was broadened yesterday due to ongoing fever. * Fever: Persistent fever which is fairly continuous in character. Drug fever remains consideration and can take time to resolve (penicillin discontinued yesterday). Line-related infection also of consideration with blood cultures being no growth to date. Deeper seated skin and soft tissue process also of consideration although no findings on exam to specifically define this. Pleural effusion also present which could serve as additional focus for infection. 10/11/17 15:34 10/11/17 15:37 Subjective: Extubated with respiratory distress. Objective: Vital Signs Temp Pulse Resp BP Pulse Ox 38.9 C H 133 H 42 H 109/75 100 10/11/17 14:00 10/11/17 14:00 10/11/17 14:00 10/11/17 14:00 10/11/17 14:00 Laboratory Results 10/11/17 05:05 10/11/17 12:38 10/10/17 10/11/17 10/12/17 05:59 05:59 05:59 Intake Total 2316 Output Total 3450 1400 Balance -1134 -1400 Meropenem # 1 Status post 10 days of penicillin Status post 7 days of linezolid Blood cultures x2 10/07/2017 no growth Blood cultures 10/10/[address] scan of right upper extremity with some phlegmonous inflammation and right elbow region without focal fluid collection or shoulder effusion - Physical Exam General Appearance: other (Tries to respond to questions) EENT: No scleral icterus Respiratory: respiratory distress (Increased respiratory effort present), coarse breath sounds Cardiac/Chest: tachycardia, systolic murmur Extremities: inflammation (Bilateral lower extremities and right upper extremity with desquamating skin and resolving cellulitis; right elbow tender to palpation; no pain with range of motion of shoulder; no palpable fluctuance) Abdomen: non-tender, No distended Skin: No embolic lesions - Line/s LUE PICC Lines: No drainage, No erythema ICD10 Worksheet Patient Problems: Problems Problem Status Onset Sepsis Acute
--- NOTE | 2017-10-11 16:56 | ASMTCMCOM ---
CM Note CM Note Notes: Patient in need of a Trach/PEG. Palliative to meet with sister, Emma and Dr Pardo. Sister unable to meet today, patient continues on Bipap. Emma to talk with Dr Pardo Wednesday. Date Signed: 10/11/2017 04:55 PM Electronically Signed By:Shayla Singh LCSW
[2017-10-11] MEDS: RIVAROXABAN 20 MG TAB TUBE SCH (17:11)
--- NOTE | 2017-10-11 17:51 | HOSPPROG ---
Hospitalist Progress Note Assessment/Plan: #Persistent fever: -improved CXR, UA negative. CT arm with no drainable abscess. -Appreciate ID. RUQ eval for acalculous cholecystitis -changed to Meropenem for possible PCN-related fever. Blood cultures negative. Continue monitor #Septic shock: resolved. GAS bacteremia, leg cellulitis. Changed to Meropenem for possible drug fever #AHRF: extubated 10/09. Low-reserve with paralyzed right hemidiaphragm/weakness. Dr. Pardo spoke with sister and if doesn't improved tomorrow will need re- intubation, PEG/trach #Acute decompensated diastolic HF: diuresing #Hypokalemia: on protocol #Microcytic anemia: H/H stable. No e/o overt bleeding. Transfused 1 unit RBC 10/07. #Thrombocytopenia: resolved #Leukocytosis: mild. Plan as above #h/o PE: Xarelto now with tube #Tachycardia: multifactorial with fever, deconditioning. Schedule Metoprolol #Chronic opioid dependency: low-dose Fentanyl gtt since can't take PO #Diet: NPO. Try to place NG, so can take home meds #Disp: cont inpatient admission for pulse oximetry May need trach/PEG. Case discussed with Dr. Pardo and patient's sister Subjective: fevering. Needed Bipap overnight Objective: Vital Signs Temp Pulse Resp BP Pulse Ox 38.8 C H 142 H 44 H 113/61 100 10/11/17 16:00 10/11/17 17:10 10/11/17 16:00 10/11/17 17:10 10/11/17 16:00 Laboratory Results 10/11/17 05:05 10/11/17 17:00 10/10/17 10/11/17 10/12/17 05:59 05:59 05:59 Intake Total 2316 1471 Output Total 3450 2125 Balance -1134 -654 PT 15.1 SEC (12.0-15.0) H 10/09/17 16:45 INR 1.17 (0.83-1.16) H 10/09/17 16:45 - Physical Exam Constitutional: obese Eyes: PERRL Ears, Nose, Mouth, Throat: other (ET in place) Cardiovascular: tachycardia Respiratory: reduced air movement Gastrointestinal: normoactive bowel sounds Genitourinary: calhoun in urethra Skin: other (sloughing skin. Several wounds over legs dressed. ) Musculoskeletal: other (right UE with less redness. Pain illicited with arm raise) Neurologic: CN II-XII Intact, other (difficult to assess if tracking. Will follow some simple commands like squeezing hand) ICD10 Worksheet Patient Problems: Problems Problem Status Onset Sepsis Acute
[2017-10-11] MEDS: ACETAMINOPHEN 650 MG/20.3 ML UDCUP TUBE PRN (21:32)
[2017-10-11] MEDS: fentaNYL/NACL 100 ML IV SCH (21:52)
[2017-10-11] MEDS ORDERED: POTASSIUM CL 20 MEQ/15 ML UDCUP TUBE ONE (21:56)
[2017-10-12] MEDS: METOPROLOL TARTRATE 5 MG/5 ML INJ IVP SCH ×3 (05:13→18:47)
[2017-10-12] MEDS: ACETAMINOPHEN 650 MG/20.3 ML UDCUP TUBE PRN (05:14)
[2017-10-12] MEDS: MEROPENEM 1 GM in STERILE WATER INJ 20 ML IV SCH ×3 (05:14→22:45)
[2017-10-12 05:28] LABS: PLATELET COUNT 430 10^3/uL (150-400)
[2017-10-12] MEDS: INSULIN LISPRO 100 UNIT/ML SC SCH ×3 (06:11→18:48)
--- NOTE | 2017-10-12 08:45 | PDINTPN ---
Plant Wrapper Progress Note Assessment/Plan: Assessment/Plan: * Sepsis: TSS from Group A Strep in blood. Likely due to phipps wounds/ cellulitis. On PCN, off linezolid. CT 09/28 negative for myositis/fasciitis. Cellulitis has significantly improved over the last several days. Remains febrile to 39 today. Blood cultures redrawn 10/07: neg. R * Tachycardia: Sinus, rate still high. CVP higher today, Stable. Was on a beta-reji as an outpatient. * Metabolic acidosis: Resolved. * Hypoglycemia: Normalized. On TFs. * Acute respiratory failure: On 40% FiO2, and now tolerating prolonged CPAP weans with acceptable weaning parameters and an excellent ABG. Indicates she wants the tube out Intubated secondary to progressive respiratory failure on . Was on the ventilator for 12 days. Respiratory status remains tentative and marginal. She remains tachypneic on BiPAP. He CO2 appears to be climbing over the last several days. It is likely she will require re-intubation and subsequent tracheostomy -recheck ABG today * LINETTE: Non-oliguric. Cr now normalized, good response to diuresis. BUN normalizin. * Morbid Obesity * Chronic pain: Due to RSD from ankle injury. On chronic narcotics at retirement. On fentanyl drip currently at 25. * Anemia: Hematocrit 25.6 after 1 unit of packed cells 10/07 and 10/09. Probably dilutional as well as decreased production, blood draws, some endotracheal bleeding previously. On full-dose anticoagulation. * Prophylaxis: On Pepcid, SCDs. DVT: On Xarelto. * Nutrition: None currently as OG tube was discontinued yesterday with extubation. Will place NG tube today. * Prognosis: Poor * Disposition-will have discussion with patient's sister today. At this point I feel that re-intubation with subsequent tracheostomy is most likely if we are to continue along this course. The other option given her poor prognosis would be withdrawal support and comfort care Subjective: Arousable. Objective: Vital Signs Temp Pulse Resp BP Pulse Ox 39.2 C H 137 H 38 H 95/56 L 96 10/12/17 06:00 10/12/17 06:00 10/12/17 06:00 10/12/17 06:00 10/12/17 06:00 Laboratory Results 10/12/17 05:05 10/12/17 05:05 10/11/17 10/12/17 10/13/17 05:59 05:59 05:59 Intake Total 2314 5296 Output Total 3457 9347 Balance -1134 -879 PT 15.1 SEC (12.0-15.0) H 10/09/17 16:45 INR 1.17 (0.83-1.16) H 10/09/17 16:45 - Time Spent With Patient Time Spent With Patient: 35 min of time spent with patient, over 1/2 involved with coordination of care or counseling Physical Exam - Physical Exam General Appearance: alert EENT: PERRL/EOMI, other (BiPAP) Neck: non-tender, full range of motion Respiratory: respiratory distress, decreased breath sounds, crackles (Few basilar), other (Tachypnea) Cardiac/Chest: regular rate, rhythm, tachycardia Abdomen: normal bowel sounds, non-tender, soft Pelvic Exam: deferred Rectal: deferred Skin: normal color, warm/dry Extremities: normal range of motion, non-tender, normal inspection, normal capillary refill Neuro/Psych: alert ICD10 Worksheet Patient Problems: Problems Problem Status Onset Sepsis Acute
[2017-10-12] MEDS ORDERED: POTASSIUM CL 10 MEQ TAB PO ONE (09:25)
[2017-10-12] MEDS ORDERED: POTASSIUM CL 20 MEQ/15 ML UDCUP PO ONE (09:45)
[2017-10-12] MEDS: FUROSEMIDE 20 MG/2 ML VIAL IVP SCH (10:22)
[2017-10-12] MEDS: FAMOTIDINE 20 MG TAB TUBE SCH ×2 (10:22→22:44)
--- NOTE | 2017-10-12 10:25 | WOCRNPDOC ---
[place] Advanced Assessment Note - Skin Integrity Problem, Advanced Assess Left Lower Leg Venous Stasis Ulcer Dressing Type: Kerlix, Optilock Dressing Description: Intact Exudate Amount: Minimal Exudate Color: Reddish/Yellow Exudate Characteristic(s): Serosanguinous Integumentary Issue Intervention: Dressing Applied, Dressing Changed, Dressing Removed, Hydrogel Applied (Puracyn wound gel) Va Wound Tissue: Hemosiderin Staining, Venous Dermatitis, Dry, Painful/Tender Va Wound Swelling: Mild Wound Bed Color: Brown, Red Wound Bed Constitution: Granulation Tissue, Red/[place] - Non Granular Tissue, Scab Wound Edges: Epithelizing Site Odor: None Site Measurement - Head-to-Toe Length X Width X Depth (cm): L anterior LE: 2.4vmo4gzg3.1cm. L posterior LE: 4bxq9fxm3.1cm. L lower medial LE: 2cmx2.1cmx0.1cm Skin Integrity Problem Comment: Three separate wounds located on patient's LLE, appearance consistent w/ venous insufficiency. These are long-standing wounds for which patient was being treated prior to her most recent hospitalization. Wound beds are dry, now a combination of scab, non-granular, and granulating tissues. No apparent necrosis. Periwound skin is dry and flaky, venous dermatitis throughout. Wounds were previously exudative, but are now mostly dessicated. Changed order to Puracyn gel and Allevyn Life dressings. drafter marine Sara present and assisting. Right Lower Leg Venous Stasis Ulcer Dressing Type: Hydrogel Sheet, Optilock Dressing Description: Intact Exudate Amount: Minimal Exudate Color: Reddish/Yellow Exudate Characteristic(s): Serosanguinous Integumentary Issue Intervention: Dressing Applied, Dressing Changed, Hydrogel Applied (Puracyn wound gel) Va Wound Tissue: Hemosiderin Staining, Venous Dermatitis, Dry, Painful/Tender Va Wound Swelling: Mild Wound Bed Color: Brown, Red Wound Bed Constitution: Granulation Tissue, Red/[place] - Non Granular Tissue, Scab Wound Edges: Epithelizing Site Odor: None Site Measurement - Head-to-Toe Length X Width X Depth (cm): R anterior LE: 3cmx2.8cmx0.2cm. R proximal LE: 4.2cmx3.5cmx scab. R posterior LE: 3.2cmx2.9cmx0.1cm Skin Integrity Problem Comment: Three discrete wounds on patient's RLE, all consistent w/ venous insufficiency. Wounds previously exudative, now dry and mostly scabbed. Wound on anterior RLE granulating throughout, wound on proximal RLE is 100% scab, and wound on posterior RLE is a mix of scab and smooth, non- granulating tissues. No necrosis observed. Periwound skin changes consistent w/ venous issues, w/ hemosiderin staining and dermatitis throughout. Changed order to Allevyns and Puracyn wound gel to confer moisture to wounds. drafter marine Ching assisting. Coccyx Dressing Type: Allevyn Life Dressing Description: Soiled (stool) Exudate Amount: None Exudate Characteristic(s): None Integumentary Issue Intervention: Barrier Cream Applied (Calazime) Va Wound Tissue: Blanching, Erythema, Raw, Denuded Wound Bed Color: Red Wound Bed Constitution: Red/[place] - Non Granular Tissue Site Measurement - Head-to-Toe Length X Width X Depth (cm): 1.2cmx0.2cmx0.1cm Skin Integrity Problem Comment: Linear, slit-like wound noted directly over coccyx, appearance consistent with intertriginous dermatitis r/t to excessive moisture. Allevyn dressing applied by nursing trapping moisture against the skin. Dressing removed, and Calazime paste protectant applied to dry out underlying skin and protect from stool.
[2017-10-12] MEDS: LORazepam 2 MG/ML INJ IVP PRN ×4 (11:12→23:10)
[2017-10-12] MEDS ORDERED: METOPROLOL TARTRATE 5 MG/5 ML INJ IVP ONE (11:57)
[2017-10-12] MEDS ORDERED: NS 500 ML IV ONE ×2 (12:00→14:00)
--- NOTE | 2017-10-12 12:37 | PCMIDPN ---
Assessment/Plan: Assessment/Plan: 1. Sepsis/ Group A strep bacteremia toxic shock/LLE cellulitis and wounds: -f/u blood cx ngtd -Now on Merem -cellulitis has resolved. Now with desquamation/peeling of skin in areas of previous cellulitis, not unexpected in process of resolution -care coordinated with RN -Prognosis guarded. 2. Fevers: - started again around 10/05/17 - wbc elevated but similar to past two days. Platelets however, rising. -f/u blood cx ngtd -Could be drug fever also. Recently changed from PCN to Merem on 10/10/17. Often drug fevers can last several days after last exposure to possible offending medication. -having loose stools again after a period of formed stools. last c. diff on negative. Will repeat -CXR reviewed. right pleural effusion, large. improved when compared to . Will need f/u with possibly thoracentesis if respiratory status worsens. 3. Leg wounds -appreciate wound care eval 4. Vanco, ceftriaxone allergy: - reaction unknown Meds Merem 1g q8- 10/10/17 s/p PCN 09/29/17-10/10/17 linezolid 09/29/17-10/05/17-#7/7 s/p dapto, merem invanz 1g daily- 09/27/17-09/29/17 clinda 600mg q8- 09/27/17-09/29/17 Subjective: Remains in ICU. on bipap. just received ATivan. sleeping. discussed with RN. having several loose stools a day. tachycardia with only minimal improvment after ativan. picc line. unique Objective: Vital Signs Temp Pulse Resp BP Pulse Ox 39.8 C H 131 H 38 H 118/71 98 10/12/17 12:06 10/12/17 12:06 10/12/17 12:06 10/12/17 12:06 10/12/17 12:06 Laboratory Results 10/12/17 05:05 10/12/17 05:05 10/11/17 10/12/17 10/13/17 05:59 05:59 05:59 Intake Total 2316 2696 Output Total 2274 9381 Balance -1134 -879 - Physical Exam General Appearance: other (sleeping) EENT: other (bipap) Respiratory: coarse breath sounds (anteriorly) Cardiac/Chest: tachycardia Extremities: swelling (RUE) Abdomen: normal bowel sounds, non-tender, soft, No distended Skin: other (peeling (desqumation) of skin in areas of previous cellulitis. no erythema. phipps wounds noted.), No erythema ICD10 Worksheet Patient Problems: Problems Problem Status Onset Sepsis Acute
--- NOTE | 2017-10-12 15:11 | HOSPPROG ---
Hospitalist Progress Note Assessment/Plan: #Septic shock: GAS bacteremia, leg cellulitis. PCN (Day 9) #AHRF: extubated this morning. Low-reserve with paralyzed right hemidiaphragm/ weakness, so high-rsik for re-intubation. May need trach/PEG, but want to give a few more days of weaning trial #Fever: blood cultures done 10/07. Dc'd central line. PICC in place. Blood cultures pending, UA -may be due to drug. PCN stopped and Meropenem started. Loose stools. C diff done earlier negative. Repeating. Pleural effusion, consider tapping #Acute decompensated diastolic HF: diuresing #Microcytic anemia: H/H down. Transfuse if Hb< 7. Transfused 1 unit RBC 10/07. #Thrombocytopenia: up today. Continue infectious eval #Leukocytosis: resolved #h/o PE: refusing NG tube, start heparin gtt #Tachycardia: multifactorial with fever, pain, resp status. BB scheduled, PRN if needed #Chronic opioid dependency: low-dose Fentayl gtt #Diet: NPO #Goals: Dr. Pardo spoke with sister and likely transition to comfort measures later today. Discussed with ICU team and Dr. Pardo Subjective: persistent fever, tachycardia to 150s. Loose stools Objective: Vital Signs Temp Pulse Resp BP Pulse Ox 39.7 C H 149 H 27 H 124/71 H 97 10/12/17 14:00 10/12/17 14:00 10/12/17 14:00 10/12/17 14:00 10/12/17 14:00 Laboratory Results 10/12/17 05:05 10/12/17 05:05 10/11/17 10/12/17 10/13/17 05:59 05:59 05:59 Intake Total 2316 2696 Output Total 3450 3575 2400 Balance -1134 -879 -2400 PT 15.1 SEC (12.0-15.0) H 10/09/17 16:45 INR 1.17 (0.83-1.16) H 10/09/17 16:45 - Physical Exam Constitutional: obese, uncomfortable, other (ill-appearing) Eyes: PERRL Ears, Nose, Mouth, Throat: dry mucous membranes Cardiovascular: tachycardia Respiratory: clear to auscultation Gastrointestinal: normoactive bowel sounds, soft, non-tender abdomen Genitourinary: calhoun in urethra Skin: other (mutliple skin wound dressed, no over cellullitis. Redness over RUE improved) Psychiatric: encephalopathic ICD10 Worksheet Patient Problems: Problems Problem Status Onset Sepsis Acute
--- NOTE | 2017-10-12 15:27 | PDINTPN ---
Assignment Desk Editor Progress Note Assessment/Plan: Assessment/Plan: * Sepsis: TSS from Group A Strep in blood. Likely due to phipps wounds/ cellulitis. On PCN, off linezolid. CT 09/28 negative for myositis/fasciitis. Cellulitis has significantly improved over the last several days. Remains febrile to 39 today. Blood cultures redrawn 10/07: neg. R * Tachycardia: Sinus, rate still high. CVP higher today, Stable. Was on a beta-reji as an outpatient. * Metabolic acidosis: Resolved. * Hypoglycemia: Normalized. On TFs. * Acute respiratory failure: On 40% FiO2, and now tolerating prolonged CPAP weans with acceptable weaning parameters and an excellent ABG. Indicates she wants the tube out Intubated secondary to progressive respiratory failure on . Was on the ventilator for 12 days. Respiratory status remains tentative and marginal. She remains tachypneic on BiPAP. He CO2 appears to be climbing over the last several days. It is likely she will require re-intubation and subsequent tracheostomy -recheck ABG today * LINETTE: Non-oliguric. Cr now normalized, good response to diuresis. BUN normalizin. * Morbid Obesity * Chronic pain: Due to RSD from ankle injury. On chronic narcotics at half-way. On fentanyl drip currently at 25. * Anemia: Hematocrit 25.6 after 1 unit of packed cells 10/07 and 10/09. Probably dilutional as well as decreased production, blood draws, some endotracheal bleeding previously. On full-dose anticoagulation. * Prophylaxis: On Pepcid, SCDs. DVT: On Xarelto. * Nutrition: None currently as OG tube was discontinued yesterday with extubation. Will place NG tube today. * Prognosis: Poor * I had a long discussion with the patient's sister regarding patient's poor prognosis. Options this point her limited. Either intubation and mechanical ventilation with subsequent tracheostomy tube and PEG tube placement versus withdrawal of support. Given her extremely poor prognosis, her sister is leaning towards withdrawal of support at this time. We will abide by her wishes. Objective: Vital Signs Temp Pulse Resp BP Pulse Ox 39.7 C H 149 H 27 H 124/71 H 97 10/12/17 14:00 10/12/17 14:00 10/12/17 14:00 10/12/17 14:00 10/12/17 14:00 Laboratory Results 10/12/17 05:05 10/12/17 05:05 10/11/17 10/12/17 10/13/17 05:59 05:59 05:59 Intake Total 1011 8433 Output Total 7982 8436 2408 Balance -1134 -879 -2400 PT 15.1 SEC (12.0-15.0) H 10/09/17 16:45 INR 1.17 (0.83-1.16) H 10/09/17 16:45 ICD10 Worksheet Patient Problems: Problems Problem Status Onset Sepsis Acute
[2017-10-12] MEDS: RIVAROXABAN 20 MG TAB TUBE SCH ×2 (18:47→18:49)
[2017-10-12 21:49] VITALS: TEMP 103.8
[2017-10-12 22:14] VITALS: BP 118/54; O2SAT 96
[2017-10-12] MEDS: fentaNYL/NACL 100 ML IV SCH (22:44)
[2017-10-12 22:58] VITALS: PULSE 142; RESP 48
[2017-10-13] MEDS: INSULIN LISPRO 100 UNIT/ML SC SCH
[2017-10-13] MEDS: METOPROLOL TARTRATE 5 MG/5 ML INJ IVP SCH
== END 2017-10-12 23:29 | disposition expired | DRG 870 ==
LOC: EDUNIT# → F2N 12:43
PROVIDERS: ADMIT Family Medicine; ATTEND Family Medicine
PROC: 02HV33Z Insertion of Infusion Device into Superior Vena Cava, Percutaneous Approach (ICD-10-PCS; 2017-09-26)
PROC: 5A1955Z Respiratory Ventilation, Greater than 96 Consecutive Hours (ICD-10-PCS; principal; 2017-09-27)
PROC: 0BH17EZ Insertion of Endotracheal Airway into Trachea, Via Natural or Artificial Opening (ICD-10-PCS; principal; 2017-09-27)
PROC: 3E043XZ Introduction of Vasopressor into Central Vein, Percutaneous Approach (ICD-10-PCS; principal; 2017-09-27)
PROC: 0BJ08ZZ Inspection of Tracheobronchial Tree, Via Natural or Artificial Opening Endoscopic (ICD-10-PCS; principal; 2017-09-27)
PROC: 02HV33Z Insertion of Infusion Device into Superior Vena Cava, Percutaneous Approach (ICD-10-PCS; 2017-10-08)
PROC: 30233N1 Transfusion of Nonautologous Red Blood Cells into Peripheral Vein, Percutaneous Approach (ICD-10-PCS; 2017-10-09)
DX: A40.0 Sepsis due to streptococcus, group A (principal); A48.3 Toxic shock syndrome; E87.2 Acidosis; Z16.29 Resistance to other single specified antibiotic; I87.313 Chronic venous hypertension (idiopathic) with ulcer of bilateral lower extremity; L03.115 Cellulitis of right lower limb; L03.116 Cellulitis of left lower limb; G93.41 Metabolic encephalopathy; J81.0 Acute pulmonary edema; J96.21 Acute and chronic respiratory failure with hypoxia; E16.2 Hypoglycemia, unspecified; D69.59 Other secondary thrombocytopenia; D50.9 Iron deficiency anemia, unspecified; R19.7 Diarrhea, unspecified; M79.601 Pain in right arm; Z51.5 Encounter for palliative care; E66.01 Morbid (severe) obesity due to excess calories; Z68.43 Body mass index [BMI] 50.0-59.9, adult; E66.2 Morbid (severe) obesity with alveolar hypoventilation; G90.529 Complex regional pain syndrome I of unspecified lower limb; F11.20 Opioid dependence, uncomplicated; F60.3 Borderline personality disorder; R13.10 Dysphagia, unspecified; Z86.711 Personal history of pulmonary embolism; Z79.01 Long term (current) use of anticoagulants; K21.9 Gastro-esophageal reflux disease without esophagitis; F32.9 Major depressive disorder, single episode, unspecified; H40.9 Unspecified glaucoma; G47.33 Obstructive sleep apnea (adult) (pediatric)
CPT/HCPCS: 82947-QW; 85520-90; C1751; J0610; J0878; J1170; J1335; J1644; J1720; J1815; J1940; J2020; J2060; J2185; J2250; J2540; J2704; J2997; J3010; J3411; J3475; J3480; P9016; P9041; P9047; Q9967